=== PATIENT | female | born 1965 | race Caucasian/White ===

== ENCOUNTER → 2017-07-05 11:44 | Outpatient (CLI) | payer OTHER, SELFPAY ==
[2017-07-05 12:26] LABS: Basophils # 0.1 K/mm3 (0-0.2); Basophils % 0.8 % (0.1-2.0); Eosinophils # 0.2 K/mm3 (0.0-0.4); Eosinophils % 2.4 % (0.1-12.0); Hematocrit 47.9 % (37.0-47.0); Hemoglobin 15.8 g/dL (12.2-16.2); Lymphocytes # 3.4 K/mm3 (0.7-4.5); Lymphocytes % 34.1 K/mm3 (10-50); Mean Corpuscular HGB Conc 33.1 g/dL (31.8-35.4); Mean Corpuscular Hemoglobin 33.4 pg (27.0-31.2); Mean Platelet Volume 8.4 fl (7.4-10.4); Monocytes # 0.6 K/mm3 (0.1-1.0); Monocytes % 5.7 % (1.7-9.3); Neutrophils # 5.7 K/mm3 (1.8-7.8); Neutrophils % 56.9 % (37.0-80.0); Platelet Count 346 K/mm3 (142-424); Red Blood Count 4.74 M/mm3 (4.20-5.40); Red Cell Distribution Width 12.8 % (11.5-17.5)
[2017-07-05 14:31] LABS: Alanine Aminotransferase 37 U/L (12-78); Alkaline Phosphatase 83 U/L (46-116); Anion Gap 12.1 mEq/L (5-15); Bilirubin,Total 0.6 mg/dL (0.2-1.0); Blood Urea Nitrogen 18 mg/dL (7-18); Calcium 9.1 mg/dL (8.5-10.1); Carbon Dioxide 28 mmol/L (21.0-32.0); Chloride 102 mmol/L (98-107); Estimated Glomerular Filt Rate 58 ml/min (>60); GFR (African American) 70 ML/MIN (>60); Glucose 92 mg/dL (74-106); Sodium 138 mmol/L (136-145)
[2017-07-05 14:32] LABS: Aspartate Amino Transferase 23 U/L (15-37); Potassium 4.1 mmoL/L (3.5-5.1)
== END ==
PROVIDERS: Visit Provider Nurse Practitioner Family
DX: B18.2 Chronic viral hepatitis C (principal); Z79.899 Other long term (current) drug therapy
CPT/HCPCS: 36415; 80053; 85025; 87522

== ENCOUNTER → 2017-08-16 10:51 | Outpatient (CLI) | payer OTHER, SELFPAY ==
[2017-08-16 12:01] LABS: Basophils # 0.1 K/mm3 (0-0.2); Basophils % 0.8 % (0.1-2.0); Eosinophils # 0.2 K/mm3 (0.0-0.4); Eosinophils % 2.5 % (0.1-12.0); Hematocrit 47.8 % (37.0-47.0); Hemoglobin 15.7 g/dL (12.2-16.2); Lymphocytes # 2.8 K/mm3 (0.7-4.5); Lymphocytes % 31.1 K/mm3 (10-50); Mean Corpuscular HGB Conc 32.9 g/dL (31.8-35.4); Mean Corpuscular Hemoglobin 33.4 pg (27.0-31.2); Mean Corpuscular Volume 101.4 fl (81-99); Mean Platelet Volume 7.8 fl (7.4-10.4); Monocytes # 0.5 K/mm3 (0.1-1.0); Monocytes % 5.1 % (1.7-9.3); Neutrophils # 5.4 K/mm3 (1.8-7.8); Neutrophils % 60.5 % (37.0-80.0); Platelet Count 283 K/mm3 (142-424); Red Blood Count 4.71 M/mm3 (4.20-5.40); Red Cell Distribution Width 12.6 % (11.5-17.5)
[2017-08-16 12:13] LABS: INR 1.48 (0.9-1.1); Prothrombin Time 16.1 seconds (9.4-11.8)
[2017-08-16 13:37] LABS: Alanine Aminotransferase 19 U/L (12-78); Albumin Level 3.9 gm/dL (3.4-5.0); Alkaline Phosphatase 82 U/L (46-116); Anion Gap 14.5 mEq/L (5-15); Aspartate Amino Transferase 20 U/L (15-37); Bilirubin,Total 0.3 mg/dL (0.2-1.0); Blood Urea Nitrogen 10 mg/dL (7-18); Calcium 9.8 mg/dL (8.5-10.1); Carbon Dioxide 27 mmol/L (21.0-32.0); Chloride 104 mmol/L (98-107); Creatinine,Serum 0.84 mg/dL (0.55-1.02); Estimated Glomerular Filt Rate 71 ml/min (>60); GFR (African American) 85 ML/MIN (>60); Globulin 3.8 gm/dl (1.3-3.2); Glucose 94 mg/dL (74-106); Potassium 4.5 mmoL/L (3.5-5.1); Sodium 141 mmol/L (136-145); Total Protein,Serum 7.7 gm/dL (6.4-8.2)
== END ==
PROVIDERS: Visit Provider Nurse Practitioner Family
DX: B18.2 Chronic viral hepatitis C (principal); B19.20 Unspecified viral hepatitis C without hepatic coma; Z79.899 Other long term (current) drug therapy
CPT/HCPCS: 36415; 80053; 85025; 85610; 87522

== ENCOUNTER → 2017-09-15 10:25 | Outpatient (CLI) | payer OTHER, SELFPAY ==
[2017-09-15 11:04] LABS: Basophils # 0.1 K/mm3 (0-0.2); Eosinophils # 0.1 K/mm3 (0.0-0.4); Eosinophils % 1.9 % (0.1-12.0); Hematocrit 43.9 % (37.0-47.0); Hemoglobin 14.7 g/dL (12.2-16.2); Lymphocytes # 2.7 K/mm3 (0.7-4.5); Lymphocytes % 35.5 K/mm3 (10-50); Mean Corpuscular HGB Conc 33.6 g/dL (31.8-35.4); Mean Corpuscular Volume 98.3 fl (81-99); Mean Platelet Volume 7.7 fl (7.4-10.4); Monocytes # 0.5 K/mm3 (0.1-1.0); Monocytes % 6.1 % (1.7-9.3); Neutrophils # 4.2 K/mm3 (1.8-7.8); Neutrophils % 55.6 % (37.0-80.0); Platelet Count 282 K/mm3 (142-424); Red Blood Count 4.46 M/mm3 (4.20-5.40); Red Cell Distribution Width 12.4 % (11.5-17.5); White Blood Count 7.6 K/mm3 (4.8-10.8)
[2017-09-15 12:20] LABS: Alanine Aminotransferase 20 U/L (12-78); Albumin Level 3.7 gm/dL (3.4-5.0); Alkaline Phosphatase 69 U/L (46-116); Anion Gap 14.8 mEq/L (5-15); Aspartate Amino Transferase 22 U/L (15-37); Bilirubin,Total 0.4 mg/dL (0.2-1.0); Blood Urea Nitrogen 8 mg/dL (7-18); Carbon Dioxide 25 mmol/L (21.0-32.0); Chloride 106 mmol/L (98-107); Creatinine,Serum 0.82 mg/dL (0.55-1.02); Estimated Glomerular Filt Rate 73 ml/min (>60); GFR (African American) 88 ML/MIN (>60); Globulin 3.6 gm/dl (1.3-3.2); Glucose 91 mg/dL (74-106); Potassium 3.8 mmoL/L (3.5-5.1); Sodium 142 mmol/L (136-145); Total Protein,Serum 7.3 gm/dL (6.4-8.2)
== END ==
PROVIDERS: Visit Provider Nurse Practitioner Family
DX: B18.2 Chronic viral hepatitis C (principal); B19.20 Unspecified viral hepatitis C without hepatic coma; Z79.899 Other long term (current) drug therapy
CPT/HCPCS: 36415; 80053; 85025; 87522

== ENCOUNTER → 2017-11-15 10:35 | Outpatient (CLI) | payer OTHER, SELFPAY ==
[2017-11-15 10:50] LABS: Basophils # 0.1 K/mm3 (0-0.2); Basophils % 0.9 % (0.1-2.0); Eosinophils # 0.3 K/mm3 (0.0-0.4); Eosinophils % 3.5 % (0.1-12.0); Hematocrit 46.8 % (37.0-47.0); Lymphocytes # 2.7 K/mm3 (0.7-4.5); Lymphocytes % 30.3 K/mm3 (10-50); Mean Corpuscular HGB Conc 32.1 g/dL (31.8-35.4); Mean Corpuscular Hemoglobin 31.6 pg (27.0-31.2); Mean Corpuscular Volume 98.5 fl (81-99); Mean Platelet Volume 7.5 fl (7.4-10.4); Monocytes # 0.4 K/mm3 (0.1-1.0); Monocytes % 4.7 % (1.7-9.3); Neutrophils # 5.4 K/mm3 (1.8-7.8); Neutrophils % 60.6 % (37.0-80.0); Platelet Count 348 K/mm3 (142-424); Red Blood Count 4.75 M/mm3 (4.20-5.40); Red Cell Distribution Width 12.7 % (11.5-17.5); White Blood Count 8.8 K/mm3 (4.8-10.8)
[2017-11-15 11:47] LABS: Alanine Aminotransferase 20 U/L (12-78); Albumin Level 3.6 gm/dL (3.4-5.0); Alkaline Phosphatase 84 U/L (46-116); Anion Gap 14.9 mEq/L (5-15); Aspartate Amino Transferase 17 U/L (15-37); Bilirubin,Total 0.2 mg/dL (0.2-1.0); Blood Urea Nitrogen 9 mg/dL (7-18); Calcium 9.1 mg/dL (8.5-10.1); Carbon Dioxide 25 mmol/L (21.0-32.0); Chloride 109 mmol/L (98-107); Creatinine,Serum 0.85 mg/dL (0.55-1.02); Estimated Glomerular Filt Rate 70 ml/min (>60); GFR (African American) 84 ML/MIN (>60); Globulin 3.6 gm/dl (1.3-3.2); Glucose 112 mg/dL (74-106); Potassium 3.9 mmoL/L (3.5-5.1); Sodium 145 mmol/L (136-145); Total Protein,Serum 7.2 gm/dL (6.4-8.2)
== END ==
PROVIDERS: Visit Provider Nurse Practitioner Family
DX: B18.2 Chronic viral hepatitis C (principal); B19.20 Unspecified viral hepatitis C without hepatic coma; Z79.899 Other long term (current) drug therapy
CPT/HCPCS: 36415; 80053; 85025; 87522

== ENCOUNTER → 2018-02-23 11:10 | Outpatient (CLI) | payer OTHER, SELFPAY ==
[2018-02-23 11:17] LABS: Adenovirus F 40/41, stool Not Detected (NotDetected); Astrovirus Not Detected (NotDetected); Campylobacter Not Detected (NotDetected); Clostridium Difficile A/B, PCR Not Detected (NotDetected); Cryptosporidium Not Detected (NotDetected); Cyclospora Cayetanesis Not Detected (NotDetected); Entamoeba histolytica Not Detected (NotDetected); Enteroaggregative E coli Not Detected (NotDetected); Enteropathogenic E coli Not Detected (NotDetected); Enterotoxigenic E coli Not Detected (NotDetected); Giardia lamblia Not Detected (NotDetected); Norovirus Not Detected (NotDetected); Plesimonas Shigalloides, PCR Not Detected (NotDetected); Rotavirus A Not Detected (NotDetected); Salmonella, PCR Not Detected (NotDetected); Sapovirus Not Detected (NotDetected); Shiga-like toxin E coli Not Detected (NotDetected); Shigella Enterovasive E coli Not Detected (NotDetected); Vibrio Cholerae Not Detected (NotDetected); Vibrio, PCR Not Detected (NotDetected); Yersinia Entercolitica, PCR Not Detected (NotDetected)
[2018-03-03 15:19] LABS: Pancreatic Elastase, Fecal >500 (>200)
== END ==
PROVIDERS: Nurse Practitioner Family; PCP Nurse Practitioner Family; Visit Provider Nurse Practitioner Family
DX: K20.9 Esophagitis, unspecified (principal)
CPT/HCPCS: 82656; 87507

== ENCOUNTER → 2018-04-07 08:42 | Outpatient (CLI) | payer OTHER, SELFPAY ==
[2018-04-07 13:42] LABS: Basophils # 0.1 K/mm3 (0-0.2); Basophils % 1.1 % (0.1-2.0); Eosinophils # 0.3 K/mm3 (0.0-0.4); Eosinophils % 2.9 % (0.1-12.0); Hematocrit 42.3 % (37.0-47.0); Hemoglobin 13.6 g/dL (12.2-16.2); Lymphocytes # 2.6 K/mm3 (0.7-4.5); Lymphocytes % 27.1 % (10-50); Mean Corpuscular HGB Conc 32.1 g/dL (31.8-35.4); Mean Corpuscular Hemoglobin 32.5 pg (27.0-31.2); Mean Corpuscular Volume 101.3 fl (81-99); Mean Platelet Volume 8.2 fl (7.4-10.4); Monocytes # 0.5 K/mm3 (0.1-1.0); Monocytes % 5.5 % (1.7-9.3); Neutrophils % 63.4 % (37.0-80.0); Platelet Count 310 K/mm3 (142-424); Red Blood Count 4.18 M/mm3 (4.20-5.40); Red Cell Distribution Width 13.5 % (11.5-17.5); White Blood Count 9.5 K/mm3 (4.8-10.8)
[2018-04-07 14:17] LABS: Alanine Aminotransferase 27 U/L (12-78); Albumin Level 3.5 gm/dL (3.4-5.0); Alkaline Phosphatase 64 U/L (46-116); Anion Gap 14.8 mEq/L (5-15); Aspartate Amino Transferase 25 U/L (15-37); Bilirubin,Total 0.2 mg/dL (0.2-1.0); Blood Urea Nitrogen 10 mg/dL (7-18); C-Reactive Protein 1.2 mg/L (0.0-0.9); Calcium 8.7 mg/dL (8.5-10.1); Carbon Dioxide 26 mmol/L (21.0-32.0); Chloride 105 mmol/L (98-107); Creatinine,Serum 0.94 mg/dL (0.55-1.02); Estimated Glomerular Filt Rate 62 ml/min (>60); GFR (African American) 75 ML/MIN (>60); Globulin 3.4 gm/dl (1.3-3.2); Glucose 111 mg/dL (74-106); Potassium 3.8 mmoL/L (3.5-5.1); Sodium 142 mmol/L (136-145); Total Protein,Serum 6.9 gm/dL (6.4-8.2)
== END ==
PROVIDERS: PCP Nurse Practitioner Family; Visit Provider Dietitian, Registered
DX: K85.90 Acute pancreatitis without necrosis or infection, unspecified (principal)
CPT/HCPCS: 36415; 80053; 85025; 86140

== ENCOUNTER → 2019-06-01 11:41 | Outpatient (CLI) | payer OTHER, SELFPAY ==
--- NOTE | 2019-06-01 11:47 | XR_ITS ---
PROCEDURE: XR CHEST 2V CLINICAL HISTORY: COUGH Cough and chest pain COMPARISON: No exams were available for comparison FINDINGS: The cardiomediastinal silhouette and pulmonary vascularity are within normal limits. There is some minimal linear density noted in the left lung base medially and may be due to area of atelectasis or fibrosis. Left proximal subclavian artery stent noted No acute bony abnormalities. IMPRESSION: Minimal atelectatic or fibrotic change in the left lung base otherwise negative Dictated by: Jameel Arredondo MD 06/01/2019 16:34 Electronically signed by Jameel Arredondo MD in [place] 06/01/2019 16:34
== END ==
PROVIDERS: PCP Nurse Practitioner; Visit Provider Nurse Practitioner
DX: R05 Cough (principal)
CPT/HCPCS: 71046

== ENCOUNTER 2019-07-06 13:01 | Outpatient (CLI) | payer OTHER, SELFPAY ==
--- NOTE | 2019-07-06 13:11 | XR_ITS ---
PROCEDURE: XR CERVICAL SPINE 3V CLINICAL INDICATION: neck pain COMPARISON: No exams were available for comparison FINDINGS: There is mild retrolisthesis of C5 on C6 of 2 mm with mild degenerative disc disease at that level. Normal alignment without fracture or dislocation. Mild facet arthritic changes noted on the left at C3-C4 and C5. Carotid calcifications on the right. IMPRESSION: Mild degenerative changes as described above Dictated by: Jameel Arredondo MD 07/06/2019 15:28 Electronically signed by Jameel Arredondo MD in [place] 07/06/2019 15:28
== END 2019-07-06 14:24 | disposition home or self-care (01) ==
PROVIDERS: PCP Nurse Practitioner Family; Visit Provider Nurse Practitioner Family
DX: M54.2 Cervicalgia (principal); Z51.81 Encounter for therapeutic drug level monitoring; Z79.01 Long term (current) use of anticoagulants
CPT/HCPCS: 72040; 85610; 99211; G0463

== ENCOUNTER 2019-08-10 09:45 | Outpatient (CLI) | payer OTHER, SELFPAY ==
[2019-08-10 14:04] LABS: PHA INR Fingerstick 3.9 (0.9-1.1)
== END 2019-08-10 14:06 | disposition home or self-care (01) ==
LOC: ACC 09:47
PROVIDERS: PCP Nurse Practitioner Family; Visit Provider Nurse Practitioner Family
DX: Z51.81 Encounter for therapeutic drug level monitoring (principal); Z79.01 Long term (current) use of anticoagulants
CPT/HCPCS: 85610; 99211; G0463

== ENCOUNTER → 2019-08-16 07:50 | Outpatient (CLI) | payer OTHER, SELFPAY ==
--- NOTE | 2019-08-16 07:51 | MR_ITS ---
PROCEDURE: MR CERVICAL SPINE WO CON CLINICAL INDICATION: Abnormal CT Neck pain with bilateral arm numbness and tingling COMPARISON: XR CERVICAL SPINE 3V from 07/06/2019 TECHNIQUE: Standard multiplanar multiecho sequences are performed without contrast. 3-D MIP and myelographic images are also rendered and reviewed FINDINGS: There is normal alignment. There is minimal right cerebellar ectopia. Cranial cervical junction has an otherwise unremarkable appearance. C2-C3, C3-C4, C4-C5 have an unremarkable appearance. C5-C6: There is mild degenerative disc disease at C5-C6 with minimal bulging disc without impingement or foraminal narrowing. There is minimal retrolisthesis of C5 on C6 of 2 mm. C6-C7: Minimal bulging disc C6-C7 slightly eccentric toward the left. C7-T1: Unremarkable IMPRESSION: Mild degenerative disc disease at C5-C6 and minimal bulging disc C6-C7 slightly eccentric toward the left otherwise negative MRI of the cervical spine. No disc herniation or canal stenosis. Dictated by: Jameel Arredondo MD 08/17/2019 10:32 Electronically signed by Jameel Arredondo MD in [place] 08/17/2019 10:32
== END ==
PROVIDERS: PCP Nurse Practitioner Family; Visit Provider Nurse Practitioner Family
DX: M48.02 Spinal stenosis, cervical region (principal)
CPT/HCPCS: 72141; 76376

== ENCOUNTER 2019-08-18 09:41 | Outpatient (CLI) | payer OTHER, SELFPAY ==
[2019-08-18 12:17] LABS: PHA INR Fingerstick 1.5 (0.9-1.1)
== END 2019-08-18 12:21 | disposition home or self-care (01) ==
LOC: ACC 09:42
PROVIDERS: PCP Nurse Practitioner Family; Visit Provider Nurse Practitioner Family
DX: Z51.81 Encounter for therapeutic drug level monitoring (principal); Z79.01 Long term (current) use of anticoagulants
CPT/HCPCS: 85610; 99211; G0463

== ENCOUNTER 2019-09-06 10:27 | Outpatient (CLI) | payer OTHER, SELFPAY ==
--- NOTE | 2019-09-06 10:29 | CA_ITS ---
APPROVED REPORT Twill Cutter: Tiffanie Bolanos RVT Laterality: Bilateral Study Quality: Good Indications: Carrotid Artery Calcification SEEN ON THE RT, Dizziness and Vertigo Risk Factors Smoking Medications Coumadin Doppler Spectral Velocity Analysis ECA (R) 59.30/15.70 cm/s ECA (L) 63.00/20.40 cm/s dICA (R) 80.20/30.90 cm/s dICA (L) 88.30/40.80 cm/s Adrián (R) 76.40/32.20 cm/s Adrián (L) 63.70/30.80 cm/s pICA (L) 56.50/27.50 cm/s dCCA (R) 58.70/21.90 cm/s pCCA (R) 80.10/21.40 cm/s dCCA (L) 69.60/28.10 cm/s Vert (R) 51.50/20.10 cm/s pCCA (L) 84.30/33.50 cm/s ICA/CCA 1.37 Vert (L) 68.10/24.20 cm/s ICA/CCA 1.27 Findings Study suggests less than 20% stenosis of the right internal cartoid artery. Study suggests less than 20% stenosis of the left internal cartoid artery. Antegrade flow seen bilateral vertebral arteries. Conclusion No increased velocities to suggest hemodynamically significant stenosis in either internal carotid artery. Electronically signed by : Jameel Arredondo MD 09/06/2019 19:55:01
[2019-09-06 14:09] LABS: PHA INR Fingerstick 3.2 (0.9-1.1)
== END 2019-09-06 14:11 | disposition home or self-care (01) ==
LOC: RT 10:29 → ACC 11:19
PROVIDERS: PCP Nurse Practitioner Family; Visit Provider Nurse Practitioner Family
DX: I65.29 Occlusion and stenosis of unspecified carotid artery (principal)
CPT/HCPCS: 85610; 93880; 99211; G0463

== ENCOUNTER 2019-09-18 08:47 | Outpatient (CLI) | payer OTHER, SELFPAY ==
--- NOTE | 2019-09-18 09:08 | MM_ITS ---
PROCEDURE: MM DIG SCREENING MAMM BI W/CAD DIGITAL BREAST TOMOSYNTHESIS INCLUDED Patient Age:54Y CLINICAL INDICATION: screening no hormones. No new complaints. Family history: Maternal great aunt with breast cancer COMPARISON: Screening Mamm w/cad from 11/20/2016-outside studies from [facility] finally arrive. TECHNIQUE: Standard CC and MLO images were obtained. R2 CAD reviewed. Bilateral digital breast tomosynthesis included. The FINDINGS: Low-density breast with generalized fatty replacement. Minimal residual fibroglandular elements Right breast: Small vague 5 mm round density lateral breast. Suspect small cyst Best seen on CC and also CC tomosynthesis slice 21,. Only vaguely seen on the MLO and MLO tomosynthesis image set, (image 32, 33) not appreciated on previous 2017 exam. Although more likely benign I would suggest ultrasound right breast, following spot cc and MLO and full 90 degree views-. Could merely be focal prominent vessel possibly or small early cyst. Left breast. Unremarkable. with no areas of concern. . In fact a previous small 6 mm round density in the left breast is since no longer evident suspect reflect cyst which has since resolved IMPRESSION: Right breast:. Small new vague round 5 mm density lateral/central right breast Most likely benign feature such as small cyst, but would benefit from spot view and ultrasound right breast. Left breast: No new findings Regression of previous densities when compared to 2017 study from [facility]--likely reflecting regression of small cyst on left . BI-RAD Category: 0 Need Additional Imaging Evaluation right FOLLOW-UP: IMM Immediate Follow-up Recommended-right breast Spot views and ultrasound right breast breast for small most likely benign densities (A letter has been sent to the patient regarding results of the study.) The Dictated by: Rubin Vicente MD 10/02/2019 15:28 Electronically signed by Rubin Vicente MD in [place] 10/02/2019 15:28
== END 2019-09-18 10:21 | disposition home or self-care (01) ==
PROVIDERS: Nurse Practitioner Family; PCP Emergency Medicine; Visit Provider Emergency Medicine
DX: Z12.31 Encounter for screening mammogram for malignant neoplasm of breast (principal); Z51.81 Encounter for therapeutic drug level monitoring; Z79.01 Long term (current) use of anticoagulants
CPT/HCPCS: 77063; 77067; 99211; G0463

== ENCOUNTER 2019-09-27 10:38 | Outpatient (CLI) | payer OTHER, SELFPAY ==
[2019-09-27 11:33] LABS: PHA INR Fingerstick 1.7 (0.9-1.1)
== END 2019-09-27 11:35 | disposition home or self-care (01) ==
LOC: ACC 10:39
PROVIDERS: PCP Emergency Medicine; Visit Provider Nurse Practitioner Family
DX: Z51.81 Encounter for therapeutic drug level monitoring (principal); Z79.01 Long term (current) use of anticoagulants
CPT/HCPCS: 85610; 99211; G0463

== ENCOUNTER 2019-10-05 10:00 | Outpatient (RCR) | payer OTHER, SELFPAY | END 2019-10-12 14:00 | disposition home or self-care (01) | LOC: PT.CARL 10:00 | PROVIDERS: PCP Emergency Medicine; Visit Provider Physician Assistant Medical | DX: M54.2 Cervicalgia (principal); M25.512 Pain in left shoulder; M50.30 Other cervical disc degeneration, unspecified cervical region; M25.78 Osteophyte, vertebrae | CPT/HCPCS: 97014; 97110; 97140; 97163; G0283 ==

== ENCOUNTER 2019-10-18 12:42 | Outpatient (CLI) | payer OTHER, SELFPAY ==
--- NOTE | 2019-10-18 13:16 | MM_ITS ---
PROCEDURE: MM DIG MAMM DX UNILAT RT CAD Digital Breast Tomosynthesis Included CLINICAL INDICATION: abnormal mamm COMPARISON: No exams were available for comparison TECHNIQUE: Standard CC and MLO images and 3D Tomosynthesis was obtained. R2 CAD reviewed. FINDINGS: IMPRESSION: BI-RAD Category: FOLLOW-UP: (A letter has been sent to the patient regarding results of the study.) Dictated by: Jameel Arredondo MD 10/20/2019 10:38 Electronically signed by Jameel Arredondo MD in [place] 10/20/2019 10:38
== END 2019-10-18 14:01 | disposition home or self-care (01) ==
LOC: RAD 12:42
PROVIDERS: Nurse Practitioner Family; PCP Emergency Medicine; Visit Provider Emergency Medicine
DX: R92.8 Other abnormal and inconclusive findings on diagnostic imaging of breast (principal); Z51.81 Encounter for therapeutic drug level monitoring; Z79.01 Long term (current) use of anticoagulants
CPT/HCPCS: 76641; 77061; 77065; 85610; 99211; G0279; G0463

== ENCOUNTER 2019-11-22 14:24 | Outpatient (CLI) | payer OTHER, SELFPAY ==
[2019-11-22 14:58] LABS: PHA INR Fingerstick 2.6 (0.9-1.1)
== END 2019-11-22 15:45 | disposition home or self-care (01) ==
LOC: ACC 14:25
PROVIDERS: PCP Emergency Medicine; Visit Provider Nurse Practitioner Family
DX: Z51.81 Encounter for therapeutic drug level monitoring (principal); Z79.01 Long term (current) use of anticoagulants
CPT/HCPCS: 85610; 99211; G0463

== ENCOUNTER 2020-01-03 11:38 | Outpatient (CLI) | payer OTHER, SELFPAY ==
[2020-01-03 15:09] LABS: PHA INR Fingerstick 2.6 (0.9-1.1)
== END 2020-01-03 15:16 | disposition home or self-care (01) ==
LOC: ACC 11:40
PROVIDERS: PCP Emergency Medicine; Visit Provider Nurse Practitioner Family
DX: Z51.81 Encounter for therapeutic drug level monitoring (principal); Z79.01 Long term (current) use of anticoagulants
CPT/HCPCS: 85610; 99211; G0463

== ENCOUNTER → 2020-02-12 10:33 | Outpatient (POV) | payer OTHER, SELFPAY ==
[2020-02-12 11:10] VITALS: BP 122/74; PULSE 65; RESP 18; TEMP 36.8; O2SAT 99; BMI 24.7
--- NOTE | 2020-02-12 12:24 | HMH.PMCON ---
Assessment and Plan (1) Degenerative joint disease of cervical spine Status: Chronic Category: Medical Code(s): M47.812 - Spondylosis without myelopathy or radiculopathy, cervical region (2) Cervical radiculopathy Status: Chronic Category: Medical Code(s): M54.12 - Radiculopathy, cervical region - Assessment and plan all Dx Assessment and Plan for all problems:: Schedule the patient for C5-C6 cervical epidural steroid injection. I believe given her symptomology that this would benefit her. She is not a surgical candidate. Patient is on anticoagulation therapy. We will get prior authorization to have her come off before her injection. I will follow-up with her after this reassess her symptoms at that time she has been instructed to call the office if she has any issues prior to her next appointment. Dr. Madrigal has reviewed this note and agrees with this plan of care. This note was dictated using voice recognition software and may contain errors or omissions HPI - Data of Consult Consult date: 02/12/20 Requesting Physician: Moni Jeronimo APRN Primary Care Provider: Caesar Maxwell MD - Consult Narrative Reason for consult: Neck pain, bilateral arm pain History of present illness: Ms. Melendez is a 54 year old female presents today for consultation in regards to her neck pain. Patient has had neck pain going on several months. Patient was seen via telehealth by Dr. Azul office for surgical consultation. She was not a surgical candidate. She does have degenerative disc disease along with bulging disc. Patient's pain radiates into her arms it is worse when she is laying down. She has numbness and tingling. Patient and I discussed injective therapy I do believe this would benefit her. Patient currently on warfarin patient has a history of blood clots. Patient is seen by for her warfarin. Dr. Obrien prescribed to her. Patient states that she has been off of it for for interventions. I discussed with the patient that we would have to get permission prior to her stopping her warfarin. Patient rates her pain today 6 out of 10. It gets worse with activity. Patient has been on gabapentin 300 mg 1 p.o. 3 times daily along with [place] 5 mg 1 p.o. twice daily. Patient also currently on phentermine. Patient has had pain for over 3 months and failed conservative treatment including home stretching program, medications. CC: Moni Jeronimo APRN [facility] History I have reviewed the patient's past medical history: Yes Medical History: Reports:: Carotid Stenosis, Coronary Artery Disease, Deep Vein Thrombosis, Gastroesophageal Reflux Disease(GERD), Hyperlipidemia, Hypertension Denies:: Cancer, Diabetes Mellitus Type 1, Diabetes Mellitus Type 2, MRSA *Have you ever received a pneumonia vaccine?: Yes *Have you received a flu vaccine this season?: Yes Other Medical History: Reports: Anemia, Arthritis Other Surgeries: Yes: Colonoscopy, , Tubal Ligation, Other Amputation: No Fractures: Yes - *Social History Smoking Status: Current every day smoker Tobacco Type: cigarettes # Packs/Day (cigarettes): 1 Alcohol Intake: former Alcohol Intake Frequency:: a few times a week Substance Use Type: former substance user *Occupational Status:: other Housing: house Household Members: other *Travel in the last 8 weeks: None Family Hx:: Unable to obtain Review of Systems - Review of Systems ROS General: no recent weight change, no fever, no sleep disturbances Respiratory: no cough, no shortness of air, no recurring pulmonary infections Cardiovascular/Peripheral Vascular: No chest pain, No palpitations, no edema, no shortness of breath. Gastrointestinal: no new onset incontinence, normal bowel movements reported Genitourinary: no new onset incontinence Musculoskeletal: Neck pain, bilateral arm pain Psychiatric: normal mood/ affect Neurological: [denies new onset weakness in extremities], [denies new onset dorie
== END ==
PROVIDERS: PCP Emergency Medicine; Visit Provider Clinical Nurse Specialist Family Health
DX: M47.892 Other spondylosis, cervical region (principal); M54.12 Radiculopathy, cervical region
CPT/HCPCS: 99202

== ENCOUNTER 2020-02-16 12:32 | Outpatient (CLI) | payer OTHER, SELFPAY ==
[2020-02-16 14:11] LABS: PHA INR Fingerstick 2.4 (0.9-1.1)
== END 2020-02-16 15:08 | disposition home or self-care (01) ==
LOC: ACC 12:33
PROVIDERS: Nurse Practitioner Family; PCP Emergency Medicine; Visit Provider Emergency Medicine
DX: Z51.81 Encounter for therapeutic drug level monitoring (principal); Z79.01 Long term (current) use of anticoagulants
CPT/HCPCS: 85610; 99211; G0463

== ENCOUNTER 2020-02-23 13:29 | Day surgery (SDC) | payer OTHER, SELFPAY ==
[2020-02-23 14:55] VITALS: BP 147/93; PULSE 110; RESP 18; TEMP 36.4; O2SAT 97; BMI 24.7
--- NOTE | 2020-02-23 15:20 | HMH.PMPROC ---
- Procedure Date: 02/23/20 Time: 15:20 Anesthesiologist:: aRndy Madrigal MD Complications:: None Pre-procedure Diagnosis:: Degenerative disc disease of the cervical spine with cervical radiculopathy symptoms Post-procedure Diagnosis:: Same Indications for Procedure:: This patient is a pleasant 54-year-old white female who we are treating for neck pain with cervical radicular symptoms. She has increasing pain in her neck radiating down her left arm. She is not a surgical candidate. We will do a cervical epidural steroid injection today to see if this helps with her pain symptoms. Procedure Details:: Cervical epidural steroid injection under fluoroscopy Informed consent was obtained and the risks and benefits of the procedure was explained to the patient. The patient was taken to the procedure room placed prone on the procedure table. The neck was prepped using ChloraPrep. The skin and subcutaneous tissues were anesthetized using lidocaine. I placed a 18-gauge epidural needle into the C5-C6 interspace and advanced using [id number] to air and fluoroscopic guidance. After confirmation of needle placement in the epidural space with dye, I injected 3 mL's lidocaine 1.5% and Depo-Medrol 80 mg. The patient tolerated the procedure well with no complications. Plan and Disposition:: We will follow-up with her in 2 weeks. Will reevaluate symptoms at that time.
[2020-02-23 15:21] VITALS: BP 138/87; PULSE 74; RESP 18; O2SAT 98
[2020-02-23 15:22] VITALS: BP 132/78; PULSE 79; RESP 18; O2SAT 98
[2020-02-23 15:38] VITALS: BP 161/88; PULSE 99; RESP 20; O2SAT 97
== END 2020-02-23 15:39 | disposition home or self-care (01) ==
LOC: SC.PAINP 13:30
PROVIDERS: PCP Emergency Medicine; Visit Provider Anesthesiology
DX: M50.10 Cervical disc disorder with radiculopathy, unspecified cervical region (principal); I11.0 Hypertensive heart disease with heart failure; K21.9 Gastro-esophageal reflux disease without esophagitis; B19.20 Unspecified viral hepatitis C without hepatic coma; Z72.0 Tobacco use; I50.9 Heart failure, unspecified; J44.9 Chronic obstructive pulmonary disease, unspecified; K85.90 Acute pancreatitis without necrosis or infection, unspecified; F41.9 Anxiety disorder, unspecified; F32.9 Major depressive disorder, single episode, unspecified; G43.909 Migraine, unspecified, not intractable, without status migrainosus; Z79.899 Other long term (current) drug therapy
CPT/HCPCS: 62321; J1040; Q9966

== ENCOUNTER → 2020-02-27 15:12 | Outpatient (CLI) | payer OTHER, SELFPAY ==
--- NOTE | 2020-02-27 15:12 | CT_ITS ---
PROCEDURE: CT LUNG SCREENING CLINICAL INDICATION: screening, smoker Current smoker 40 pack year smoking history copd No prior COMPARISON: No exams were available for comparison TECHNIQUE: The exam was performed on a GE Light Speed [address] scanner using 2.90 mGy CTDI. A low dose helical CT CHEST was performed on a multi-detector scanner. All CT scans at the facility use one or more dose reduction, viz: automated exposure control, ma/kV adjustment per patient size (including targeted exams where dose is matched to indication, i.e. head), or iterative reconstruction technique. The LDCT was performed in a facility that meets the criteria for the screening program. Data regarding this exam was submitted to ACR which is an approved registry. The order for this exam indicates that it came as a result of a lung cancer screening counseling shard decision-making visit that included all the elements required of such a visit including smoking cessation. The radiologist interpreting this exam meets the [facility] criteria for the LDCT lung cancer screening program. The exam is reported using the Lung-RADS classification scale and reported to the ACR registry. NOTE: This study was performed for the specific purposes of lung cancer screening and is not an alternative to diagnostic chest CT. RADIATION DOSE: CTDI vol(CT dose Index-volume) = 2.90mG DLP (Dose Length Product) = 94.55 mGcm FINDINGS: COPD changes. Mild prominence of the interstitium There is a peripheral area of increased density in the left lung base posteriorly and medially which abuts the hemidiaphragm. This measures 1.7 by 1 cm. There are no previous exams available for comparison to determine if this is new or old. OTHER FINDINGS: Coronary artery calcifications. Left subclavian stent is present. IMPRESSION: Lung-RADS Category 4A Suspicious Follow-up: Diagnostic chest CT without and with contrast Dictated by: Jameel Arredondo MD 03/03/2020 09:19 Jameel Arredondo MD in [place] 03/03/2020 09:19
== END ==
PROVIDERS: PCP Emergency Medicine; Visit Provider Emergency Medicine
DX: Z87.891 Personal history of nicotine dependence (principal); Z12.2 Encounter for screening for malignant neoplasm of respiratory organs

== ENCOUNTER → 2020-03-01 08:49 | Outpatient (POV) | payer OTHER, SELFPAY ==
[2020-03-01 08:56] VITALS: BP 144/92; PULSE 93; RESP 18; TEMP 36.4; O2SAT 98; BMI 24.7
--- NOTE | 2020-03-01 10:45 | P.CONS_ITS ---
[facility] Pain Management SOAP Note Subjective:: Patient is a pleasant 54-year-old white female who we have been treating for neck pain with cervical radicular symptoms. She did have a cervical epidural steroid injection which did help some of her radicular symptoms. She now has increased stiffness and muscle spasms in her neck and shoulders. Encompassing the cervical paraspinous muscles and upper trapezius muscles. She is on Zanaflex 4 mg 2 times a day. This does help some however is not long-lasting. She has seen Dr. Azul who did not recommend any surgery. We will switch her muscle relaxant to Flexeril 10 mg 1 tablet 3 times a day. We will also seek approval for trigger point injections to bilateral cervical paraspinous muscles and upper trapezius muscles. She is on blood thinner she does not need to come off her blood thinners for these trigger point injections. Objective:: Alert and oriented x3 no acute distress. There is decreased range of motion patient does have difficulty with flexion extension and turning her head due to muscle spasms and tightness of the muscles. Trigger points are identified throughout the cervical paraspinous muscles and upper trapezius muscles. Motor strength of the upper extremities is 5/5. There are no gross sensory deficit. Assessment:: Myofascial pain throughout the cervical paraspinous muscles and upper trapezius muscles with continued neck pain. Degenerative disc disease of the cervical spine with cervical radiculopathy symptoms. Plan:: We will switch her muscle relaxant to Flexeril 10 mg 1 tablet 3 times a day. We will also seek approval for trigger point injections to bilateral cervical p araspinous muscles and upper trapezius muscles. She is on blood thinner she does not need to come off her blood thinners for these trigger point injections. [facility] History Medical History: Reports:: Carotid Stenosis, Congestive Heart Failure, Coronary Artery Disease, Deep Vein Thrombosis, Gastroesophageal Reflux Disease(GERD), Hyperlipidemia, Hypertension Denies:: Cancer, Diabetes Mellitus Type 1, Diabetes Mellitus Type 2, MRSA, Seizures *Have you ever received a pneumonia vaccine?: Yes *Have you received a flu vaccine this season?: Yes Other Medical History: Reports: Anemia, Arthritis. Denies: Blood Transfusion Reaction Other Surgeries: Yes: Colonoscopy, , Tubal Ligation, Other Amputation: No Fractures: Yes - *Social History Smoking Status: Current every day smoker Tobacco Type: cigarettes # Packs/Day (cigarettes): 1 Alcohol Intake: never Alcohol Intake Frequency:: holidays/special occasions only Substance Use Type: former substance user *Occupational Status:: employed Housing: house Household Members: other *Travel in the last 8 weeks: None Family Hx:: Unable to obtain
== END ==
PROVIDERS: PCP Emergency Medicine; Visit Provider Anesthesiology
DX: M79.18 Myalgia, other site (principal); M50.10 Cervical disc disorder with radiculopathy, unspecified cervical region
CPT/HCPCS: 99212

== ENCOUNTER 2020-03-07 10:54 | Outpatient (CLI) | payer OTHER, SELFPAY ==
[2020-03-07 12:04] LABS: PHA INR Fingerstick 1.9 (0.9-1.1)
== END 2020-03-07 12:06 | disposition home or self-care (01) ==
LOC: ACC 10:56
PROVIDERS: PCP Emergency Medicine; Visit Provider Nurse Practitioner Family
DX: Z51.81 Encounter for therapeutic drug level monitoring (principal); Z79.01 Long term (current) use of anticoagulants
CPT/HCPCS: 85610; 99211; G0463

== ENCOUNTER → 2020-03-11 14:22 | Outpatient (CLI) | payer OTHER, SELFPAY ==
--- NOTE | 2020-03-11 15:24 | CT_ITS ---
PROCEDURE: CT CHEST W CON CLINCAL INDICATION: pulmonary nodule Follow-up pulmonary nodule COMPARISON: CT CT LUNG SCREENING from 02/27/2020 TECHNIQUE: IV Contrast: 75ml Isovue 370 Axial images obtained with sagittal and coronal reformats. All CT scans at the facility use one or more dose reduction, viz: automated exposure control, ma/kV adjustment per patient size (including targeted exams where dose is matched to indication, i.e. head), or iterative reconstruction technique. FINDINGS: HEART AND MEDIASTINAL STRUCTURES: Scattered small mediastinal lymph nodes are present. These measure up to 1.3 by 1 cm. Subcarinal lymph nodes are present measuring up to 1.6 x 0.9 cm. Coronary artery calcifications are present. Mild nonspecific thickening of the GE junction noted. LUNGS AND PLEURAL SPACES: There remains a peripheral parenchymal opacity in the left lower lobe abutting the hemidiaphragm. This is somewhat less distinct than when compared to the previous study and may represent an area of pneumonia/consolidation. There has been a development of a small left basilar pleural effusion with some atelectatic change in the left lower lobe posterior laterally. The effusion does not layer posteriorly as expected consistent with loculated sub pulmonic effusion. There are a couple locules of air in this region which is contiguous with the stomach and may represent gastric diverticulum with associated eventration of the diaphragm.. A sub pulmonic/subdiaphragmatic abscess is felt to be less likely. CT of the abdomen with IV and oral contrast may provide further evaluation. There is mild thickening of the GE junction which is nonspecific. BONY STRUCTURES: No acute bony abnormalities apparent. UPPER ABDOMEN: There is a small left periaortic lymph node at 1.7 x 1 cm. Small right periaortic lymph node also present at 1.5 x 0.8 cm. ADDITIONAL FINDINGS: No other significant abnormalities. IMPRESSION: 1. Persistent but less distinct parenchymal opacity in the left lung base abutting the hemidiaphragm. This may represent an area of pneumonia as opposed to pulmonary nodule. There are increasing atelectatic changes in the left lower lobe 2. Interval development of small left pleural effusion with a layering component posteriorly and with a loculated subpulmonic component. There is some mild peripheral enhancement of the effusion. Developing empyema is not excluded. 3. There are 3 locules of air in the sub pulmonic area on the left which is felt to be due to a gastric diverticulum with diaphragmatic eventration. Cannot exclude the possibility of a subpulmonic or subdiaphragmatic abscess. Recommend abdomen CT with IV and oral contrast for further evaluation. 4. Mildly prominent mediastinal and retroperitoneal lymph nodes. Dictated by: Jameel Arredondo MD 03/12/2020 06:29 Jameel Arredondo MD in [place] 03/12/2020 06:29
[2020-03-11 15:45] LABS: Blood Urea Nitrogen 15 mg/dl (7-17); Estimated Glomerular Filt Rate 87 ml/min (>60); GFR (African American) 105 ML/MIN (>60)
== END ==
PROVIDERS: PCP Emergency Medicine; Visit Provider Internal Medicine Medical Oncology
DX: R91.1 Solitary pulmonary nodule (principal)
CPT/HCPCS: 36415; 71260; 82565; 84520; Q9967

== ENCOUNTER → 2020-03-20 06:51 | Outpatient (CLI) | payer OTHER, SELFPAY ==
--- NOTE | 2020-03-20 06:51 | NM_ITS ---
APPROVED REPORT Exam: Nuclear Stress Test Indication: SOB, HTN, Tobacco use, Family history Patient Location: Outpatient Stress Tech: Mary Gomes NM Tech:Stella Bañuelos, ARRT, RT (R)(N) Ht: 5 ft 7 in Wt: 163 lbs Bra Size: 36C HR: 86 bpm BP: 147/92 mmHg BSA: 1.85 m2 BMI: 25.5 History: SOB, HTN, Tobacco use, Family history Procedure: Patient exercised on Rajeev protocol 5:00 minutes and sec, resting heart rate 86 bpm, resting blood pressure 147/92 mmHg, with exercise maximum heart rate achived was 144 bpm which is 88 % of the maximum predicted heart rate and blood pressure was 178/84 mmHg. Test was stopped due to SOA and leg fatigue. Patient denied any complaint of chest pain. Patient has Adequate exercise capacity, achieved 7.0 METs of workload on treadmill, the blood pressure response to exercise was Adequate. Electrocardiogram Resting electrocardiogram showed sinus rhythm, with exercise there is less than 1.[address] segment depression noted from the baseline EKG. The EKG portion of the exercise Myoview is negative for ischemia. Cardiac Stress and Resting SPECT Images: Cardiac Stress and Resting SPECT images were obtained using technetium 99m Myoview 32.2 mCi stress and 10.70 mCi at rest. Gated SPECT for analysis of segmental wall motion and calculation of the ejection fraction also done. Cardiac stress and resting SPECT images show uniform myocardial activity without segmental perfusion abnormality, computer derived ejection fraction is 63% with no regional wall motion abnormality, right ventricle is normal size and contractility. Conclusion: 1. The EKG portion of the exercise Myoview is negative for ischemia, patient has adequate exercise capacity achieved 7 mets of workload on treadmill the blood pressure response to exercise was adequate, there was no exercise-induced chest discomfort. 2. No scintigraphic evidence of reversible ischemia seen at this level of exercise, computer derived ejection fraction is 63% with no regional wall motion abnormality, right ventricle is normal size and contractility. 3. Normal exercise Myoview study. Electronically signed by : Tyler Campbell, 03/21/2020 10:20:50
--- NOTE | 2020-03-20 06:51 | CA_ITS ---
APPROVED REPORT Exam: Exercise Treadmill Technologist: Mary Gomes Ht: 5 ft 7 in Wt: 166 lbs BSA: 1.87 m2 HR: 86 bpm BP: 147/92 mmHg Indications: Shortness of Breath Medical History Medications: Amlodipine,,,,, Omeprazole,,,,, Aspirin,,,,, Warfarin,,,,, Metoprolol,,,,, Gabapentin,,,,, Tizanidine,,,,, FluTICASONE,,,,, Cyclobenzaprine,,,,, RoSUVASTATIN,,,,, Phentermine,,,,, Hydrocodone-Acetaminophen,,,,, Stress Test Details Test: Manual Treadmill HR Resting HR: 102 bpm Max Heart Rate (APMHR): 164 bpm Max HR Achieved: 144 bpm Target HR (85% APMHR): 139 bpm % of APMHR: 87 Recovery HR: 103 bpm BP Resting BP: 147.0/92.0 mmHg Max BP: 178.0/84.0 mmHg Recovery BP: 149.0/93.0 mmHg ECG Clinical Exercise duration: 05:00 min Highest Stage Achieved: Exercise capacity: 7.0 METs Stress ECG Conclusion Resting EKG: Normal sinus rhythm Patient exercised 5:00 on Rajeev Protocol with speed slowed down to 2 mph the final 30 seconds of exercise. Symptoms: No chest pain. Arrhythmias/Ectopy: None ST-T Changes: Normal ST response to exercise. Conclusion: Normal GXT. Myoview images reported separately. Test Summary REST . . . . . . . Sitting REST . . . . . . . Standing REST 03:54 0.0 0.0 102 . 147/ 92 . . Stage 1 01:00 10.0 1.7 114 . . . . Stage 1 . . . . . . . Shortness of Breath Stage 1 02:00 10.0 1.7 126 . . . . Stage 1 03:00 10.0 1.7 133 . 160/ 80 . . Stage 2 . . . . . . . Myoview Injected Stage 2 01:00 12.0 2.5 140 . . . . Stage 2 . . . . . . . Protocol changed to Manual Treadmill Stage 2 02:00 12.0 2.0 142 . . . Stop exercise at 05:00 RECOVERY 01:00 0.0 0.0 130 . . . . RECOVERY 02:00 0.0 0.0 115 . 178/ 84 . . RECOVERY 03:00 0.0 0.0 111 . 162/ 94 . . RECOVERY 04:00 0.0 0.0 108 . 162/ 94 . . RECOVERY 05:00 0.0 0.0 102 . 149/ 93 . . RECOVERY 05:19 0.0 0.0 105 . 149/ 93 . . Electronically signed by : Tyler Campbell, 03/21/2020 10:17:18
--- NOTE | 2020-03-20 06:51 | CA_ITS ---
APPROVED REPORT EXAM: Comprehensive 2D, Doppler, and color-flow Echocardiogram Water Superintendent: Azra Garay CRT Ht: 5 ft 7 in Wt: 166lbs BSA: 1.87 BP: 145/70 mmHg Indications: SOA,CAD,SMOKER,EDEMA,EDEMA,HLD,HTN,GERD,HEP C,ALCOHOL USE 2D Dimensions LVOT 1.81 cm (M/F) 1.5-2.5 M-Mode Dimensions RVDd 3.32 cm (0.9-2.6) LA Diam 3.30 cm (1.9-4.0) LVDd 4.28 cm (3.5-5.7) Ao Diam 3.09 cm (2.0-3.7) LVDs 3.17 cm (3.5-5.7) IVSd 0.61 cm (0.6-1.1) PWd 1.11 cm (0.6-1.1) EF (Teich) 51.30% FS 25.90% EDV (Teich) 82.20 mL ESV (Teich) 40.00 mL LV Diastology E Decel Time 150.00 (160-240 msec) E/A Ratio 0.6 MED E' 5.70 (< 7 cm/sec) E'/MED E' Ratio 9.54 (>14) LAT E' 9.20 (<10 cm/sec) E/LAT E' Ratio 5.91 (>14) Mitral Valve MV E Max Martell. 54.00 (40-130 cm/s) MV A Velocity 88.00 (40-130 cm/s) E/A Ratio 0.62 MV Decel. Time 150.00 (160-240 ms) MV PHT 44.00 ms Pulmonary Valve PV Peak Velocity 85.00 (50-150 cm/s) Left Ventricle Left atrium is mildly enlarged, left ventricle is normal size, mild concentric left ventricular hypertrophy, visually estimated ejection fraction 55% with no regional wall motion abnormality, grade 1 diastolic dysfunction seen without tissue Doppler evidence of raise left atrial pressure. Right Ventricle Right atrium and right ventricle mildly enlarged with normal contractility. Aortic Valve Aortic valve is minimally thickened and fibrosed, there is no aortic stenosis or aortic insufficiency. Mitral Valve Mitral valve is grossly normal, there is mild mitral regurgitation. Tricuspid Valve Tricuspid valve grossly normal, there is mild tricuspid regurgitation, tricuspid regurgitation jet velocity is inadequate for calculation of the right ventricular systolic pressure. Pulmonic Valve Pulmonic valve is poorly visualized. Great Vessels Aortic root is normal size. Pericardium No significant pericardial effusion noted. Conclusion 1. Mild biatrial enlargement, normal left ventricular size, mild concentric left ventricular hypertrophy, visually estimated ejection fraction 55% with no regional wall motion abnormality, grade 1 diastolic dysfunction seen without tissue Doppler evidence of raise left atrial pressure. 2. Mildly enlarged right ventricle with normal contractility. 3. Mild mitral and tricuspid regurgitation. 4. No significant pericardial effusion noted. Electronically signed by : Tyler Campbell, 03/21/2020 11:21:51
[2020-03-20 07:35] LABS: Basophils # 0.1 K/mm3 (0-0.2); Basophils % 1.2 % (0.1-2.0); Eosinophils # 0.3 K/mm3 (0.0-0.4); Eosinophils % 3.3 % (0.1-12.0); Hematocrit 42.9 % (37.0-47.0); Hemoglobin 13.5 g/dL (12.2-16.2); Lymphocytes # 3.1 K/mm3 (0.7-4.5); Lymphocytes % 34.1 % (10-50); Mean Corpuscular HGB Conc 31.5 g/dL (31.8-35.4); Mean Corpuscular Hemoglobin 30.2 pg (27.0-31.2); Mean Corpuscular Volume 95.8 fl (81-99); Mean Platelet Volume 7.4 fl (7.4-10.4); Monocytes # 0.5 K/mm3 (0.1-1.0); Monocytes % 5.8 % (1.7-9.3); Neutrophils # 5.1 K/mm3 (1.8-7.8); Neutrophils % 55.7 % (37.0-80.0); Platelet Count 551 K/mm3 (142-424); Red Blood Count 4.48 M/mm3 (4.20-5.40); White Blood Count 9.1 K/mm3 (4.8-10.8)
[2020-03-20 08:13] LABS: Chloride 104 mmol/L (98-107); Potassium 3.5 mmoL/L (3.5-5.1); Sodium 143 mmol/L (136-145)
[2020-03-20 08:15] LABS: Blood Urea Nitrogen 14 mg/dl (7-17)
[2020-03-20 08:16] LABS: Anion Gap 14.5 mEq/L (5-15); Calcium 9.8 mg/dl (8.4-10.2); Carbon Dioxide 28 mmol/L (22.0-30.0); Estimated Glomerular Filt Rate 103 ml/min (>60); GFR (African American) 125 ML/MIN (>60); Glucose 90 mg/dl (74-100)
--- NOTE | 2020-03-20 08:39 | HMH.ITSHM ---
Current Home Medications as stated by this patient Meeta Melendez or self pay representative. []AMLODIPINE TIZANADINE WARFARIN ASA OMEPRAZOLE GABAPENTIN HYDROCODONE METOPROLOL ATORVASTATIN
[2020-03-20 09:44] LABS: INR 1.52 (0.9-1.1); Prothrombin Time 16.2 seconds (9.4-11.8)
[2020-03-20 09:46] LABS: Coronavirus 19 IgG Antibody Negative (Negative); Coronavirus 19 IgM Antibody Negative (Negative)
== END ==
PROVIDERS: Internal Medicine Pulmonary Disease; PCP Emergency Medicine; Visit Provider Internal Medicine Cardiovascular Disease
DX: R06.00 Dyspnea, unspecified (principal); E78.5 Hyperlipidemia, unspecified; I10 Essential (primary) hypertension; I65.23 Occlusion and stenosis of bilateral carotid arteries; J44.9 Chronic obstructive pulmonary disease, unspecified; K21.9 Gastro-esophageal reflux disease without esophagitis; R60.9 Edema, unspecified; F17.200 Nicotine dependence, unspecified, uncomplicated; I25.10 Atherosclerotic heart disease of native coronary artery without angina pectoris; Z82.49 Family history of ischemic heart disease and other diseases of the circulatory system; Z86.19 Personal history of other infectious and parasitic diseases; Z86.718 Personal history of other venous thrombosis and embolism; Z95.828 Presence of other vascular implants and grafts; Z98.890 Other specified postprocedural states; F17.210 Nicotine dependence, cigarettes, uncomplicated; R59.0 Localized enlarged lymph nodes; Z01.812 Encounter for preprocedural laboratory examination
CPT/HCPCS: 36415; 78452; 80048; 85025; 85610; 86328; 93017; 93306; A9502

== ENCOUNTER 2020-03-22 10:02 | Day surgery (SDC) | payer OTHER, SELFPAY ==
[2020-03-19 14:05] VITALS: BMI 25.5
[2020-03-22] VITALS (10 sets, daily range): BP systolic 127–154; BP diastolic 51–93; PULSE 72–107; RESP 18–20; TEMP 36.1–36.7; O2SAT 94–99
--- NOTE | 2020-03-22 14:06 | HMH.ANESCL ---
[facility] Anesthesia Checklist - Patient Identification Patient Identification: Arm Band, Verbal (Name & ) - Structural Data Admitted From: Home Planned Operative Procedure/s: bronch Consent for Planned Operative Procedure(s) Verified: Yes Verified Documents: History and Physical - NPO Status Verified Time NPO: 00:00 - Additional verifications Patient : No Anesthesia Reactions: No Hx Blood Transfusions: No Blood Transfusion Reaction: No Cephalosporin Allergy: No Previous Colonoscopy: Yes - Cardiovascular Assessment Heart Sounds: S1 & S2 Pulse Strength: Baseline Pulse Rhythm: Regular Peripheral Edema: No - Airway Assessment C-Spine Mobility Assessed: Yes TMJ Mobility Assessed: Yes Dentition: Good Dentition - Neurological Assessment Level of Consciousness: Awake, Alert, Appropriate Hx Seizures: No Numbness or tingling in extremities: No - Anesthesia Plan Anesthesia Risk discussed: Yes Anesthesia Plan: Verified ASA Class: III Anesthesia Type: General [facility] History I have reviewed the patient's past medical history: Yes Medical History: Reports:: Carotid Stenosis, Congestive Heart Failure, Coronary Artery Disease, Deep Vein Thrombosis, Gastroesophageal Reflux Disease(GERD), Hyperlipidemia, Hypertension Denies:: Cancer, Diabetes Mellitus Type 1, Diabetes Mellitus Type 2, MRSA, Seizures *Have you ever received a pneumonia vaccine?: Yes *Have you received a flu vaccine this season?: Yes Other Medical History: Reports: Anemia, Arthritis. Denies: Blood Transfusion Reaction Anesthesia experience/problems:: none Other Surgeries: Yes: Angiogram, Colonoscopy, , Tubal Ligation, Other Amputation: No Fractures: Yes - *Social History Last grade of school completed: High school graduate Smoking Status: Current every day smoker Tobacco Type: cigarettes # Packs/Day (cigarettes): 1 Alcohol Intake: current Alcohol Intake Frequency:: holidays/special occasions only Substance Use Type: marijuana Last Used Substance: days (ago) *Occupational Status:: disabled Housing: house Household Members: other *Travel in the last 8 weeks: None Family Hx:: Unable to obtain, Cancer, Heart Attack, Tuberculosis, Stroke, Hypertension, Anemia
--- NOTE | 2020-03-22 14:06 | HMH.ANESI ---
[facility] Anesthesia Record Part I Intake, IV Amount: 800 Estimated blood loss (mL): 5 Urine output (mL): 0 Blood Products used (#): none Blood Pressure: 146/55 SaO2: 96 Pulse Rate: 107 Respiratory Rate: 20 Temperature: 97.5 F Patient is:: Awake, Stable Stable to PACU at:: 14:55
--- NOTE | 2020-03-22 14:42 | HMH.BRONCH ---
- Procedure: Date: 03/22/20 Patient Date of :: 1965 Procedure Performed:: Bronchoscpy with EBUS-FNA Indications:: Mediastinal and Hilar adenopathy Performing Provider:: Dr. Dann Bobo Referring Provider:: Dr. Maxwell Sedation:: General anesthesia Procedure:: Bronchoscopy with EBUS FNA Findings:: A clean EBUS bronchoscopy without a balloon was introduced through 8 and half size ET tube and lymph node surveillance was performed, patient found to have a large station 7, 10 L and 4R lymphadenopathies. 5 passes were performed in each of the lymph node stations and sent for cytopathology analysis. Station 7 and 10 L were also sent for cultures and flow cytometry. Bedside pathology evaluation inconclusive, however seen atypical cells on the station 7 FNA analysis. Patient tolerated the procedure well with minimal blood loss. We will follow the patient in the clinic as previously scheduled with the results. Specimens:: FNA of station 7, 10 L and 4R lymph nodes Recommendations:: Follow in the clinic as previously scheduled. Complications:: None Estimated blood obtained (mL): 5
--- NOTE | 2020-03-22 14:46 | HMH.ANESII ---
[facility] [place] Anesthesia Record Part II Discharge Time: 14:25 Destination: Surgical Day Care (OP Surgery) PACU nurse assessment reviewed?: Yes Patient Condition:: Good Anesthesia Complications:: None Swallowing reflex intact?: Yes Cyanosis?: No Blood Pressure: 127/93 Pulse Rate: 80 Temperature: 97.5 F Mental Status: Alert & Oriented Pain level:: 2 Nausea and/or vomitting:: None Intake, IV Amount: 35
--- NOTE | 2020-03-22 14:48 | SUR.PHASEII ---
MEDICATED WITH TYLENOL 650MG PER MD ORDER FOR C/O OF WHEELER.
== END 2020-03-22 15:00 | disposition home or self-care (01) ==
LOC: OR 10:02
PROVIDERS: PCP Emergency Medicine; Visit Provider Internal Medicine Pulmonary Disease
PROC: (CPT 31653; principal; 2020-03-22 12:00)
DX: R59.0 Localized enlarged lymph nodes (principal); Z72.0 Tobacco use; I11.0 Hypertensive heart disease with heart failure; I50.9 Heart failure, unspecified; Z79.01 Long term (current) use of anticoagulants; Z95.828 Presence of other vascular implants and grafts; R04.2 Hemoptysis; J44.9 Chronic obstructive pulmonary disease, unspecified; I25.10 Atherosclerotic heart disease of native coronary artery without angina pectoris; R06.00 Dyspnea, unspecified
CPT/HCPCS: 31653; 87070; 87077; 87186; 87205; J2405; J2710

== ENCOUNTER 2020-04-11 10:07 | Outpatient (CLI) | payer OTHER, SELFPAY ==
[2020-04-11 14:29] LABS: PHA INR Fingerstick 2.4 (0.9-1.1)
== END 2020-04-11 14:30 | disposition home or self-care (01) ==
LOC: ACC 10:09
PROVIDERS: PCP Emergency Medicine; Visit Provider Nurse Practitioner Family
DX: Z51.81 Encounter for therapeutic drug level monitoring (principal); Z79.01 Long term (current) use of anticoagulants
CPT/HCPCS: 85610; 99211; G0463

== ENCOUNTER 2020-05-07 09:31 | Observation (INO) | payer OTHER, SELFPAY ==
[2020-05-07] VITALS (9 sets, daily range): BP systolic 136–170; BP diastolic 81–100; PULSE 83–105; RESP 19–24; TEMP 36.5–37.3; O2SAT 94–99; BMI 24.5; BMI 26.3
--- NOTE | 2020-05-07 09:27 | ECG_ITS ---
APPROVED REPORT Exam: Resting ECG HR:91 bpm ECG Measurements Heart Rate 91 AXES NE 168 P 57 QRSd 76 QRS 49 QT 366 T 61 QTc 450 Conclusion Normal sinus rhythm Normal ECG Electronically signed by : Nik Newell, 05/07/2020 19:56:12
--- NOTE | 2020-05-07 09:36 | XR_ITS ---
PROCEDURE: XR CHEST PORTABLE CLINICAL HISTORY: pain chest Chest pain and shortness of air COMPARISON: CR XR CHEST 2V from 06/01/[address] CHEST W CON from 03/11/2020 FINDINGS: The cardiomediastinal silhouette and pulmonary vascularity are within normal limits. There is some patchy density in the left lung base suggesting atelectasis or infiltrate. The remaining lungs are clear.. No acute bony abnormalities. IMPRESSION: Mild left basilar atelectasis or infiltrate. Dictated by: Jameel Arredondo MD 05/07/2020 12:32 Jameel Arredondo MD in [place] 05/07/2020 12:32
--- NOTE | 2020-05-07 09:36 | CT_ITS ---
PROCEDURE: CT ANGIO CHEST CLINCIAL INDICATION: pain with inspiration, hx of DVT COMPARISON: CT CT CHEST W CON from 03/11/2020 TECHNIQUE: IV Contrast: 70ML Isovue 370 Axial images obtained with sagittal and coronal reformats. All CT scans at the facility use one or more dose reduction, viz: automated exposure control, ma/kV adjustment per patient size (including targeted exams where dose is matched to indication, i.e. head), or iterative reconstruction technique. FINDINGS: No evidence of aortic aneurysm or dissection or pulmonary embolus. No mediastinal or hilar mass or adenopathy. Coronary artery calcifications and/or stents noted. There are few small mediastinal lymph nodes. Dependent changes are present in the posterior ramsey thoraces. Mild consolidation present in the left lower lobe posteriorly and medially. Trace left-sided effusion noted. There is persistent increased density in the left lung base medially along the hemidiaphragm. This has been described previously and is somewhat more prominent with vascular structures extending through this area. This is along the cardia of the stomach between the cardia of the stomach and the spleen. Neoplasm or subphrenic/sub pulmonic abscess is considered. As mentioned previously, would recommend CT of the abdomen with both IV and oral contrast for further evaluation. Upper endoscopy may also provide further evaluation. There are degenerative changes of the thoracic spine. IMPRESSION: 1. Persistent increased soft tissue along the cardia of the stomach and in the left subdiaphragmatic region medially with thickening of the soft tissues at this area. These findings could be neoplastic or inflammatory/infectious. Upper endoscopy may provide further evaluation. CT of the abdomen with both IV and oral contrast may also provide further evaluation. Oral contrast should be given at the time immediately before imaging to assure stomach opacification. 2. There is some consolidation in the left lower lobe medially as before with trace left-sided effusion. 3. No evidence of pulmonary embolus or aortic aneurysm or dissection. Dictated by: Jameel Arredondo MD 05/07/2020 12:28 Jameel Arredondo MD in [place] 05/07/2020 12:28
--- NOTE | 2020-05-07 09:37 | HMH.EDCP ---
ED Disposition Clinical Impression: Pleural effusion, Supratherapeutic INR Pneumonia Qualifiers: Pneumonia type: due to unspecified organism Laterality: left Lung location: lower lobe of lung Qualified Code(s): J18.9 - Pneumonia, unspecified organism Disposition: Admitted As Inpatient Condition on Discharge: Fair Time of Disposition: 13:57 - Critical Care Critical Care Time: No Attestation: On , the high probability of a clinically significant, sudden or life threatening deterioration of the following system(s) required my full and direct attention, intervention and personal management. The time I documented below is in addition to time spent performing reported procedures but includes the following listed in this critical care notation. Medical Decision Making - Medical Records Medical records reviewed: Yes: I reviewed the patient's medical records. - Tani Inquiry Pt receiving controlled substance: No Vital Signs: 05/07/20 09:31 05/07/20 09:57 05/07/20 10:34 Temperature 99.1 F Temperature Source Oral Pulse Rate [Left Radial] 88 83 85 Respiratory Rate 20 Blood Pressure [Right Arm] 151/93 H 155/93 H 170/100 H Blood Pressure Mean [Right Arm] 112 113 123 Blood Pressure Source [Right Arm] Automatic Cuff Automatic Cuff Automatic Cuff Blood Pressure Position [Right Arm] Sitting Sitting Sitting 02 Sat by Pulse Oximetry 97 96 96 Oxygen Delivery Method Room Air Room Air Room Air 05/07/20 14:32 Temperature Temperature Source Pulse Rate [Left Radial] 86 Respiratory Rate Blood Pressure [Right Arm] 136/100 H Blood Pressure Mean [Right Arm] 112 Blood Pressure Source [Right Arm] Automatic Cuff Blood Pressure Position [Right Arm] Sitting 02 Sat by Pulse Oximetry 94 L Oxygen Delivery Method Room Air - Lab Data Lab Results 05/07/20 09:35: WBC 13.0 H, RBC 4.67, Hgb 14.2, Hct 43.5, MCV 93.2, MCH 30.4, MCHC 32.7, RDW 16.0, Plt Count 394, MPV 7.0 L, Neut % (Auto) 71.0, Lymph % (Auto) 20.5, [place] % (Auto) 5.3, Eos % (Auto) 2.6, Baso % (Auto) 0.6, Neut # (Auto) 9.3 H, Lymph # (Auto) 2.7, [place] # (Auto) 0.7, Eos # (Auto) 0.3, Baso # (Auto) 0.1 05/07/20 09:35: Sodium 140, Potassium 3.3 L, Chloride 103, Carbon Dioxide 29, Anion Gap 11.3, BUN 10, Creatinine 0.70, Estimated Creat Clear 101, Estimated GFR 87, Est GFR ( Amer) 105, Glucose 109 H, Calcium 9.6, Total Bilirubin 0.6, AST 35, ALT 24, Alkaline Phosphatase 128 H, Troponin I < 0.01, Total Protein 8.2, Albumin 4.5, Globulin 3.7 H, Albumin/Globulin Ratio 1.2 05/07/20 09:35: PT 43.2 H, INR 4.46 H, APTT 46.4 H 05/07/20 09:35: Plasma/Serum Alcohol < 10 05/07/20 13:25: Troponin I < 0.01 05/07/20 14:06: Lactate 1.2 Result diagrams: 05/07/20 09:35 05/07/20 09:35 Orders (Tests/Meds): ED MEDICATIONS Generic Name Dose Route Start Last Admin Trade Name Freq PRN Reason Stop Dose Admin Acetaminophen 650 mg 05/07/20 14:36 Acetaminophen 325mg Tab PO 06/06/20 14:35 Q4HP PRN As Needed for Fever or Pain Azithromycin 500 mg/ Sodium 250 mls @ 250 mls/hr 05/07/20 14:00 Chloride IV 05/21/20 13:59 Q24H SAMARIA Protocol Ceftriaxone Sodium 1 gm/ 50 mls @ 100 mls/hr 05/07/20 14:00 05/07/20 14:10 Sodium Chloride IV 05/21/20 13:59 100 mls/hr Q24H SAMARIA Administration Protocol Ibuprofen 400 mg 05/07/20 14:36 Ibuprofen 400 Mg Tablet PO 06/06/20 14:35 Q6HP PRN Mild Pain Discontinued Medications Generic Name Dose Route Start Last Admin Trade Name Freq PRN Reason Stop Dose Admin Diatrizoate Meglum/Diatrizoate Sod 15 ml 05/07/20 11:22 05/07/20 11:34 Diatrizoate Ratna 66% & Diatrizoate Na 10% 30ml Udc PO 05/07/20 11:23 15 ml ONCE ONE Administration Iopamidol 70 ml 05/07/20 10:14 05/07/20 10:15 Iopamidol-370 (76%);100ml Bottle IV 05/07/20 10:15 70 ml ONCE ONE Administration Sodium Chloride 10 ml 05/07/20 10:14 05/07/20 10:15 Sodium Chloride 0.9% 10ml Syr (Rad Only) IV 05/07/20 10:1
[2020-05-07 09:46] LABS: Basophils # 0.1 K/mm3 (0-0.2); Basophils % 0.6 % (0.1-2.0); Eosinophils # 0.3 K/mm3 (0.0-0.4); Eosinophils % 2.6 % (0.1-12.0); Hematocrit 43.5 % (37.0-47.0); Hemoglobin 14.2 g/dL (12.2-16.2); Lymphocytes # 2.7 K/mm3 (0.7-4.5); Lymphocytes % 20.5 % (10-50); Mean Corpuscular HGB Conc 32.7 g/dL (31.8-35.4); Mean Corpuscular Hemoglobin 30.4 pg (27.0-31.2); Mean Corpuscular Volume 93.2 fl (81-99); Monocytes # 0.7 K/mm3 (0.1-1.0); Monocytes % 5.3 % (1.7-9.3); Neutrophils # 9.3 K/mm3 (1.8-7.8); Platelet Count 394 K/mm3 (142-424); Red Blood Count 4.67 M/mm3 (4.20-5.40)
[2020-05-07 09:53] LABS: Prothrombin Time 43.2 seconds (9.4-11.8)
--- NOTE | 2020-05-07 09:56 | PC.NURSE ---
notified of notification of INR
[2020-05-07 09:58] LABS: Activated Partial Thrombo Time 46.4 seconds (23.6-34.0); INR 4.46 (0.9-1.1)
[2020-05-07 10:05] LABS: Chloride 103 mmol/L (98-107); Potassium 3.3 mmoL/L (3.5-5.1); Sodium 140 mmol/L (136-145)
[2020-05-07 10:07] LABS: Alanine Aminotransferase 24 U/L (12-78); Aspartate Amino Transferase 35 U/L (14-36); Bilirubin,Total 0.6 mg/dl (0.2-1.3); Blood Urea Nitrogen 10 mg/dl (7-17); Creatinine Clearance Estimated 101 mL/min (50-200); Estimated Glomerular Filt Rate 87 ml/min (>60); GFR (African American) 105 ML/MIN (>60)
[2020-05-07 10:08] LABS: Albumin Level 4.5 g/dl (3.5-5.0); Albumin/Globulin Ratio 1.2 (1.1-1.8); Alkaline Phosphatase 128 U/L (38-126); Anion Gap 11.3 mEq/L (5-15); Calcium 9.6 mg/dl (8.4-10.2); Carbon Dioxide 29 mmol/L (22.0-30.0); Ethyl Alcohol < 10 mg/dl (0-10); Globulin 3.7 g/dL (1.3-3.2); Glucose 109 mg/dl (74-100); Total Protein,Serum 8.2 g/dl (6.3-8.2)
[2020-05-07 10:21] LABS: Troponin I < 0.01 ng/ml (0.00-0.034)
--- NOTE | 2020-05-07 11:22 | CT_ITS ---
PROCEDURE: CT ABDOMEN PELVIS W CON CLINICAL INDICATION: gastric mass/ adenopathy COMPARISON: CT CT LUNG SCREENING from 02/27/[address] CHEST W CON from 03/11/2020 TECHNIQUE: IV Contrast: 75ML Isovue 370 Oral Contrast None Axial images obtained with sagittal and coronal reformats. All CT scans at the facility use one or more dose reduction, viz: automated exposure control, ma/kV adjustment per patient size (including targeted exams where dose is matched to indication, i.e. head), or iterative reconstruction technique. FINDINGS: There is increased density in the left lung base medially with diffuse increased attenuation along the left hemidiaphragm medially and in the sub pulmonic area. This is contiguous with the cardia of the stomach and the medial aspect of the spleen. This may be neoplastic or infectious. Suggest upper endoscopy for further evaluation. There is trace left-sided effusion with some faint consolidation in the left lower lobe. There are 2 areas of decreased attenuation in the region of the hilum of the spleen at 13 and 18 mm. These could sequela from pancreatitis as the pancreatic tail does abut this region.. An additional area of decreased attenuation involves the spleen inferiorly and anteriorly. The adrenal glands have an unremarkable appearance. There is mild cortical scarring of the right kidney. No liver lesions apparent. There may be a small stone in the neck of the gallbladder. No intestinal obstruction or free air. There is a small umbilical hernia which contains fat. There is diverticulosis of the sigmoid colon but no evidence of diverticulitis. Scattered small nodes are present in the inguinal area. No acute bony finding. IMPRESSION: Abnormal increased density in the left lung base medially contiguous with the hemidiaphragm and gastric cardia as well as the spleen. This may be neoplastic or inflammatory/infectious. Empyema or subdiaphragmatic abscess not excluded. Upper endoscopy suggested for further evaluation. There are 2 areas of decreased attenuation along the medial aspect of the spleen which could be due to small areas of abscess or sequela from prior pancreatitis. Possible gallstone in the neck of the gallbladder. Dictated by: Jameel Arredondo MD 05/07/2020 15:28 Jameel Arredondo MD in [place] 05/07/2020 15:28
--- NOTE | 2020-05-07 11:45 | PC.NURSE ---
1133 PO contrast finished.
--- NOTE | 2020-05-07 13:21 | PC.NURSE ---
kelli davila speaking with mikal
--- NOTE | 2020-05-07 13:59 | PC.NURSE ---
Dr Benavides speaking with Dr Guidry
[2020-05-07 14:04] LABS: Troponin I < 0.01 ng/ml (0.00-0.034)
--- NOTE | 2020-05-07 14:08 | PC.NURSE ---
Pt is sitting up in chair at this time. Pt does not want to get back up in the bed for v/s she wants to go outside at this time.
[2020-05-07 14:27] LABS: Lactic Acid 1.2 mmol/L (0.7-2.1)
[2020-05-07 16:00] LABS: Coronavirus 19 IgG Antibody Negative (Negative); Coronavirus 19 IgM Antibody Negative (Negative)
--- NOTE | 2020-05-07 17:44 | PC.NURSE ---
Pt arrived to the floor at [id number]
--- NOTE | 2020-05-07 19:45 | HMH.HP ---
*Admission Date: 05/07/20 *Chief complaint: left sided chest pain *History of present illness: 54-year-old female presenting to the emergency department with chest pain. Pain is described as in the left side of her chest, below her breast. Pain is intense, sharp. She has pain with inspiration. Pain with cough. Heavy sensation in her left arm. recently recovered from pneumonia, was treated with antibiotics. She also has a history of upper extremity DVT. Has a stent in her left upper extremity. Is taking warfarin as prescribed. Continues to smoke cigarettes. No fevers, chills, nausea, vomiting. Workup so far has included CT chest and CT abdomen/pelvis. Findings are as relayed below: CT CHEST 1. Persistent increased soft tissue along the cardia of the stomach and in the left subdiaphragmatic region medially with thickening of the soft tissues at this area. These findings could be neoplastic or inflammatory/infectious. Upper endoscopy may provide further evaluation. CT of the abdomen with both IV and oral contrast may also provide further evaluation. Oral contrast should be given at the time immediately before imaging to assure stomach opacification. 2. There is some consolidation in the left lower lobe medially as before with trace left-sided effusion. 3. No evidence of pulmonary embolus or aortic aneurysm or dissection. CT ABDOMEN Abnormal increased density in the left lung base medially contiguous with the hemidiaphragm and gastric cardia as well as the spleen. This may be neoplastic or inflammatory/infectious. Empyema or subdiaphragmatic abscess not excluded. Upper endoscopy suggested for further evaluation. There are 2 areas of decreased attenuation along the medial aspect of the spleen which could be due to small areas of abscess or sequela from prior pancreatitis. Possible gallstone in the neck of the gallbladder. Has been seen and worked up by Dr Bobo, including bronch. Excerpts from his office notes include: 54-year-old significant smoking high risk for lung cancer presented with mediastinal adenopathy at station 7 and 4R. Patient along with this also found to have left lower lobe pulmonary infiltrate which appeared to be infectious than malignant in origin. Overall her pulmonary infiltrate and lymphadenopathy can be likely from infectious etiology however given the high risk we cannot rule out malignancy at this point of time. After discussion with the patient regarding the possible repeating the CTs versus FNA patient opted for EBUS FNA which is performed, negative for malignancy. Patient needs EBUS FNA cultures also positive for methylene resistant staph epidermidis. Plan: -Manage MRSA pneumonia as mentioned above. Will follow with a repeat CT chest in 6 months to document the resolution of the lymphadenopathy We will ask for him to re-evaluate this admission. Will also pursue EGD to delineate findings on CT. [facility] History Medical History: Reports:: Carotid Stenosis, Congestive Heart Failure, Coronary Artery Disease, Deep Vein Thrombosis, Gastroesophageal Reflux Disease(GERD), Hyperlipidemia, Hypertension Denies:: Cancer, Diabetes Mellitus Type 1, Diabetes Mellitus Type 2, MRSA, Seizures *Have you ever received a pneumonia vaccine?: Yes *Have you received a flu vaccine this season?: Yes Other Medical History: Reports: Anemia, Arthritis. Denies: Blood Transfusion Reaction Other Surgeries: Yes: Angiogram, Colonoscopy, , Tubal Ligation, Other Amputation: No Fractures: Yes - *Social History Last grade of school completed: High school graduate Smoking Status: Current every day smoker Tobacco Type: cigarettes # Packs/Day (cigarettes): 1 Alcohol Intake: current Alcohol Intake Frequency:: holidays/special occasions only Substance Use Type: marijuana *Occupational Status:: employed Housing: house Household Members: spouse *Travel in the last 8 weeks: None Family Hx:: Diabetes, Heart Attack,
--- NOTE | 2020-05-07 19:55 | INFXCTL.NOTE ---
SHE IS AOX4, ABLE TO MAKE NEEDS KNOWN TO STAFF, HAS TOLERATED RA WELL SAINCE ARRIVAL TO FLOOR FROM ED, SHE TOLERATED HER DIET WELL, HAS REQUESTED THAT SHE BE ALLOWED TO LEAVE THE FLOOR TO SMOKE AT SOME PINT DURING THE NIGHT, AT THIS TIME SHE IS RESTING IN BED WITH NO NEEDS VOICED.
--- NOTE | 2020-05-07 21:07 | P.CONPHA_ITS ---
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) Pneumonia (Acute) Pleural effusion (Acute) Supratherapeutic INR (Acute) Anticoagulant long-term use (Acute) Hx of deep venous thrombosis (Chronic) Tobacco dependence syndrome (Chronic) - VTE Risk Labs: VTE Related Lab Results Hgb 14.2 g/dL (12.2-16.2) 05/07/20 09:35 Hct 43.5 % (37.0-47.0) 05/07/20 09:35 Plt Count 394 K/mm3 (142-424) 05/07/20 09:35 PT 43.2 seconds (9.4-11.8) H 05/07/20 09:35 INR 4.46 (0.9-1.1) H 05/07/20 09:35 APTT 46.4 seconds (23.6-34.0) H 05/07/20 09:35 BUN 10 mg/dl (7-17) 05/07/20 09:35 Creatinine 0.70 mg/dl (0.52-1.04) 05/07/20 09:35 Estimated Creat Clear 101 mL/min (50-200) 05/07/20 09:35 VTE Score: 10 VTE Risk Level: Moderate Risk Clinical Trial Participant: No - Prophylaxis VTE Prophylaxis Ordered?: Yes Types of VTE Prophylaxis: TEDS Knee High
--- NOTE | 2020-05-07 21:18 | HMH.PHAINT ---
home medication reconciliation completed using list from [facility]
[2020-05-08] VITALS: BP 131/74; PULSE 103; RESP 22; TEMP 37; O2SAT 96
[2020-05-08 04:00] VITALS: BP 139/86; PULSE 107; RESP 19; TEMP 36.9; O2SAT 94
[2020-05-08 05:40] VITALS: BMI 25.1
--- NOTE | 2020-05-08 06:36 | XR_ITS ---
PROCEDURE: XR CHEST 2V CLINICAL HISTORY: cough Cough, pneumonia COMPARISON: CR XR CHEST 2V from 06/01/[address] ANGIO CHEST from 05/07/2020 CR XR CHEST PORTABLE from 05/07/2020 FINDINGS: The cardiomediastinal silhouette and pulmonary vascularity are within normal limits. There remains patchy density in the left lung base which may be related to an area of atelectasis or infiltrate. The remaining lungs are clear. No acute bony abnormalities. Contrast is present in the large bowel from recent CT scan IMPRESSION: No change mild left basilar atelectasis and/or infiltrate Dictated by: Jameel Arredondo MD 05/08/2020 06:43 Jameel Arredondo MD in [place] 05/08/2020 06:43
--- NOTE | 2020-05-08 06:45 | PC.NURSE ---
Pt is A&Ox4. Expiratory wheezing heard bilaterally t/o all lung carlin. Pt verbalized concern last night of possible EGD. Pt was very anxious and stated that I am here for pneumonia, not something for my stomach. After reassuring pt about the purpose of the procedure, pt seemed to calm down. Pt still states I am not getting that scope done. , but has agreed to be open to the discussion. Pt has c/o shoulder/back pain x1 this shift. PRN pain meds given per JUL. Pt did request a warm compress this shift for abdominal area and stated she felt relief from that. No other acute changes or complaints at this time.
--- NOTE | 2020-05-08 07:27 | PC.NURSE ---
Dr. Medina notified about consult on pt.
[2020-05-08 07:48] LABS: Basophils # 0.1 K/mm3 (0-0.2); Basophils % 0.6 % (0.1-2.0); Eosinophils # 0.3 K/mm3 (0.0-0.4); Eosinophils % 2.1 % (0.1-12.0); Hematocrit 38.6 % (37.0-47.0); Hemoglobin 12.9 g/dL (12.2-16.2); Lymphocytes # 2.9 K/mm3 (0.7-4.5); Lymphocytes % 22.8 % (10-50); Mean Corpuscular HGB Conc 33.4 g/dL (31.8-35.4); Mean Corpuscular Hemoglobin 30.8 pg (27.0-31.2); Mean Corpuscular Volume 92.2 fl (81-99); Mean Platelet Volume 7.8 fl (7.4-10.4); Monocytes # 0.7 K/mm3 (0.1-1.0); Monocytes % 5.8 % (1.7-9.3); Neutrophils # 8.8 K/mm3 (1.8-7.8); Neutrophils % 68.7 % (37.0-80.0); Platelet Count 348 K/mm3 (142-424); Red Blood Count 4.18 M/mm3 (4.20-5.40); Red Cell Distribution Width 15.9 % (11.5-17.5); White Blood Count 12.8 K/mm3 (4.8-10.8)
[2020-05-08 08:05] LABS: Anion Gap 11.6 mEq/L (5-15); Blood Urea Nitrogen 8 mg/dl (7-17); Calcium 9.3 mg/dl (8.4-10.2); Carbon Dioxide 26 mmol/L (22.0-30.0); Chloride 103 mmol/L (98-107); Creatinine Clearance Estimated 120 mL/min (50-200); Estimated Glomerular Filt Rate 103 ml/min (>60); GFR (African American) 125 ML/MIN (>60); Glucose 108 mg/dl (74-100); Potassium 3.6 mmoL/L (3.5-5.1); Sodium 137 mmol/L (136-145)
[2020-05-08 08:30] LABS: INR 3.45 (0.9-1.1); Prothrombin Time 34.2 seconds (9.4-11.8)
--- NOTE | 2020-05-08 09:13 | HMH.DCSUM ---
General - General Admission date:: 05/07/20 Discharge date: 05/08/20 HPI HPI: 54-year-old female presenting to the emergency department with chest pain. Pain is described as in the left side of her chest, below her breast. Pain is intense, sharp. She has pain with inspiration. Pain with cough. Heavy sensation in her left arm. recently recovered from pneumonia, was treated with antibiotics. She also has a history of upper extremity DVT. Has a stent in her left upper extremity. Is taking warfarin as prescribed. Continues to smoke cigarettes. No fevers, chills, nausea, vomiting. Workup so far has included CT chest and CT abdomen/pelvis. Findings are as relayed below: CT CHEST 1. Persistent increased soft tissue along the cardia of the stomach and in the left subdiaphragmatic region medially with thickening of the soft tissues at this area. These findings could be neoplastic or inflammatory/infectious. Upper endoscopy may provide further evaluation. CT of the abdomen with both IV and oral contrast may also provide further evaluation. Oral contrast should be given at the time immediately before imaging to assure stomach opacification. 2. There is some consolidation in the left lower lobe medially as before with trace left-sided effusion. 3. No evidence of pulmonary embolus or aortic aneurysm or dissection. CT ABDOMEN Abnormal increased density in the left lung base medially contiguous with the hemidiaphragm and gastric cardia as well as the spleen. This may be neoplastic or inflammatory/infectious. Empyema or subdiaphragmatic abscess not excluded. Upper endoscopy suggested for further evaluation. There are 2 areas of decreased attenuation along the medial aspect of the spleen which could be due to small areas of abscess or sequela from prior pancreatitis. Possible gallstone in the neck of the gallbladder. Has been seen and worked up by Dr Bobo, including bronch. Excerpts from his office notes include: 54-year-old significant smoking high risk for lung cancer presented with mediastinal adenopathy at station 7 and 4R. Patient along with this also found to have left lower lobe pulmonary infiltrate which appeared to be infectious than malignant in origin. Overall her pulmonary infiltrate and lymphadenopathy can be likely from infectious etiology however given the high risk we cannot rule out malignancy at this point of time. After discussion with the patient regarding the possible repeating the CTs versus FNA patient opted for EBUS FNA which is performed, negative for malignancy. Patient needs EBUS FNA cultures also positive for methylene resistant staph epidermidis. Plan: -Manage MRSA pneumonia as mentioned above. Will follow with a repeat CT chest in 6 months to document the resolution of the lymphadenopathy We will ask for him to re-evaluate this admission. Will also pursue EGD to delineate findings on CT. Hospital Course Hospital Course: Earlier this morning patient informed staff she was going to leave AGAINST MEDICAL ADVICE, staff informed her that medical team would begin rounding on inpatients in 10 to 15 minutes and that she would be seen first. Staff reports she became very frustrated and said she was leaving now, IV was DC'd, AGAINST MEDICAL ADVICE paperwork was signed and patient left the unit. Patient was not seen by medical team, attempts will be made to contact patient and follow-up in outpatient setting for EGD and pulmonary. Objective Vital signs: Temp Pulse Resp BP Pulse Ox 98.5 F 107 H 19 139/86 94 L 05/08/20 04:00 05/08/20 04:00 05/08/20 04:00 05/08/20 04:00 05/08/20 04:00 Narrative: Patient had already left the floor when medical team arrived, no assessment was performed Results Labs on day of discharge: Labs from last 24 hours 05/08/20 05/08/20 05/08/20 07:20 07:20 07:20 WBC 12.8 H RBC 4.18 L Hgb 12.9 Hct 38.6 MCV
--- NOTE | 2020-05-08 10:05 | PC.NURSE ---
PT LEFT AMA THIS AM BEFORE DR ROUNDS AT APPX 0730, IV REMOVED AND AMA PAPERWORK SIGNED
== END 2020-05-08 07:30 | disposition left against medical advice (07) ==
LOC: ER 13:57 → 2ND 20:03
PROVIDERS: Admitting Provider Emergency Medicine; Emergency Provider Emergency Medicine; PCP Emergency Medicine; Visit Provider Emergency Medicine
DX: J18.9 Pneumonia, unspecified organism (principal); Z72.0 Tobacco use; Z79.01 Long term (current) use of anticoagulants; Z79.51 Long term (current) use of inhaled steroids; Z95.820 Peripheral vascular angioplasty status with implants and grafts; Z88.8 Allergy status to other drugs, medicaments and biological substances; M47.812 Spondylosis without myelopathy or radiculopathy, cervical region; Z86.718 Personal history of other venous thrombosis and embolism
CPT/HCPCS: 36415; 71045; 71046; 71275; 74177; 80048; 80053; 83605; 84484; 85025; 85610; 85730; 86328; 87040; 93005; 96365; 96374; 96375; 99284; G0378; J0456; Q9967

== ENCOUNTER 2020-05-22 09:54 | Outpatient (CLI) | payer OTHER, SELFPAY | END 2020-05-22 11:05 | disposition home or self-care (01) | LOC: ACC 09:55 | PROVIDERS: Nurse Practitioner Family; PCP Emergency Medicine; Visit Provider Emergency Medicine | DX: Z51.81 Encounter for therapeutic drug level monitoring (principal); Z79.01 Long term (current) use of anticoagulants | CPT/HCPCS: 85610; 99211; G0463 ==

== ENCOUNTER 2020-05-28 15:48 | Emergency (ER) | payer OTHER, SELFPAY ==
--- NOTE | 2020-05-28 | CT_ITS ---
PROCEDURE: CT HEAD/BRAIN WO CON CLINICAL INDICATION: Vertigo while sitting still COMPARISON: No exams were available for comparison TECHNIQUE: Axial images obtained. All CT scans at the facility use one or more dose reduction, viz: automated exposure control, ma/kV adjustment per patient size (including targeted exams where dose is matched to indication, i.e. head), or iterative reconstruction technique. FINDINGS: No midline shift, mass effect, intracranial hemorrhage, hydrocephalus, or extra-axial fluid collection is evident. The calvarium has an unremarkable appearance. No mastoid effusion. No sinus air-fluid level. IMPRESSION: No acute intracranial finding Dictated by: Jameel Arredondo MD 05/28/2020 20:38 Jameel Arredondo MD in [place] 05/29/2020 09:11
[2020-05-28 15:49] VITALS: BP 142/84; PULSE 80; RESP 18; TEMP 36.6; O2SAT 98; BMI 24.5
[2020-05-28 15:50] VITALS: BMI 25.0
--- NOTE | 2020-05-28 15:51 | CT_ITS ---
Procedure: CT ANGIO NECK CLINICAL HISTORY: VERTIGO WHY SITTING STILL COMPARISON: CT CT ANGIO HEAD from 05/28/2020 TECHNIQUE: IV Contrast: 100ml Isovue 370 Axial images obtained with sagittal and coronal reformats. All CT scans at the facility use one or more dose reduction, viz: automated exposure control, ma/kV adjustment per patient size (including targeted exams where dose is matched to indication, i.e. head), or iterative reconstruction technique. FINDINGS: CTA neck: The aortic arch has an unremarkable appearance. A vascular stent is present in the proximal aspect of the left subclavian artery with superior extent ending at the region of the origin of the left vertebral artery. Right carotid: Atheromatous plaque in the right carotid bulb without significant stenosis.. The internal carotid has an unremarkable appearance. No dissection Left carotid: Atheromatous plaque is present at the left carotid bulb without significant stenosis. The remaining internal carotid has an unremarkable appearance. No dissection Vertebrals: Left vertebral is dominant. No significant stenosis or occlusion or dissection. CTA head: Atheromatous calcific plaque is present within the cavernous portion of both ICAs. No significant stenosis. No aneurysm or AVM apparent. The right A1 segment is hypoplastic. There is a primary azygos A2 segment which divides distally with an adjacent hypoplastic left a 2 segment. No major branch occlusion No enhancing lesions. No evidence of sinus thrombosis IMPRESSION: 1. No significant stenosis occlusion or dissection. 2. 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
[2020-05-28 16:10] LABS: Basophils # 0.1 K/mm3 (0-0.2); Eosinophils # 0.3 K/mm3 (0.0-0.4); Eosinophils % 2.7 % (0.1-12.0); Hematocrit 43.7 % (37.0-47.0); Hemoglobin 13.9 g/dL (12.2-16.2); Lymphocytes # 3.8 K/mm3 (0.7-4.5); Lymphocytes % 34.5 % (10-50); Mean Corpuscular HGB Conc 31.8 g/dL (31.8-35.4); Mean Corpuscular Hemoglobin 30.8 pg (27.0-31.2); Mean Corpuscular Volume 96.8 fl (81-99); Mean Platelet Volume 7.2 fl (7.4-10.4); Monocytes # 0.5 K/mm3 (0.1-1.0); Monocytes % 4.9 % (1.7-9.3); Neutrophils # 6.2 K/mm3 (1.8-7.8); Neutrophils % 56.8 % (37.0-80.0); Platelet Count 538 K/mm3 (142-424); Red Blood Count 4.52 M/mm3 (4.20-5.40); Red Cell Distribution Width 15.2 % (11.5-17.5); White Blood Count 10.9 K/mm3 (4.8-10.8)
[2020-05-28 16:13] LABS: Chloride 105 mmol/L (98-107); Potassium 3.8 mmoL/L (3.5-5.1); Sodium 141 mmol/L (136-145)
[2020-05-28 16:15] LABS: Alanine Aminotransferase 28 U/L (12-78); Alkaline Phosphatase 110 U/L (38-126); Anion Gap 12.8 mEq/L (5-15); Aspartate Amino Transferase 44 U/L (14-36); Bilirubin,Total 0.4 mg/dl (0.2-1.3); Blood Urea Nitrogen 14 mg/dl (7-17); Carbon Dioxide 27 mmol/L (22.0-30.0); Creatinine Clearance Estimated 81 mL/min (50-200); Estimated Glomerular Filt Rate 65 ml/min (>60); GFR (African American) 78 ML/MIN (>60)
[2020-05-28 16:16] LABS: Albumin Level 4.6 g/dl (3.5-5.0); Albumin/Globulin Ratio 1.2 (1.1-1.8); Calcium 10.3 mg/dl (8.4-10.2); Glucose 108 mg/dl (74-100); Total Protein,Serum 8.6 g/dl (6.3-8.2)
[2020-05-28 16:26] LABS: INR 2.28 (0.9-1.1); Prothrombin Time 23.5 seconds (9.4-11.8)
--- NOTE | 2020-05-28 17:53 | HMH.EDGENADL ---
ED Disposition Clinical Impression: Vertigo Disposition: Home, Self-Care Condition on Discharge: Good Instructions: DI for Vertigo Additional Instructions: Meclizine as prescribed. Follow-up in the office on Wednesday with Dr. Maxwell as scheduled. Prescriptions: Meclizine HCl [Antivert 25mg tablet] 25 mg PO TIDP PRN #15 tab PRN Reason: Vertigo Transmission Status: Pending to [facility] Referrals: Caesar Maxwell MD [Primary Care Provider] - - Critical Care Critical Care Time: No Attestation: On 05/28/20, the high probability of a clinically significant, sudden or life threatening deterioration of the following system(s) required my full and direct attention, intervention and personal management. The time I documented below is in addition to time spent performing reported procedures but includes the following listed in this critical care notation. Medical Decision Making - Tani Inquiry Pt receiving controlled substance: No Vital Signs: 05/28/20 15:49 Temperature 97.9 F Temperature Source Oral Pulse Rate [Right Radial] 80 Respiratory Rate 18 Blood Pressure [Right Arm] 142/84 H Blood Pressure Mean [Right Arm] 103 Blood Pressure Source [Right Arm] Automatic Cuff Blood Pressure Position [Right Arm] Sitting 02 Sat by Pulse Oximetry 98 Oxygen Delivery Method Room Air - Lab Data Lab Results 05/28/20 15:55: WBC 10.9 H, RBC 4.52, Hgb 13.9, Hct 43.7, MCV 96.8, MCH 30.8, MCHC 31.8, RDW 15.2, Plt Count 538 H, MPV 7.2 L, Neut % (Auto) 56.8, Lymph % (Auto) 34.5, [place] % (Auto) 4.9, Eos % (Auto) 2.7, Baso % (Auto) 1.0, Neut # (Auto) 6.2, Lymph # (Auto) 3.8, [place] # (Auto) 0.5, Eos # (Auto) 0.3, Baso # (Auto) 0.1 05/28/20 15:55: Sodium 141, Potassium 3.8, Chloride 105, Carbon Dioxide 27, Anion Gap 12.8, BUN 14, Creatinine 0.90, Estimated Creat Clear 81, Estimated GFR 65, Est GFR ( Amer) 78, Glucose 108 H, Calcium 10.3 H, Total Bilirubin 0.4, AST 44 H, ALT 28, Alkaline Phosphatase 110, Total Protein 8.6 H, Albumin 4.6, Globulin 4.0 H, Albumin/Globulin Ratio 1.2 05/28/20 15:55: PT 23.5 H, INR 2.28 H Result diagrams: 05/28/20 15:55 05/28/20 15:55 Orders (Tests/Meds): ED MEDICATIONS Discontinued Medications Generic Name Dose Route Start Last Admin Trade Name Freq PRN Reason Stop Dose Admin Sodium Chloride 1,000 mls @ 999 mls/hr 05/28/20 16:00 05/28/20 16:06 Sod Chlor 0.9% 1000ml Bag IV 05/28/20 17:00 999 mls/hr .Q1H1M SAMARIA Administration Iopamidol 100 ml 05/28/20 17:17 05/28/20 17:19 Iopamidol-370 (76%);100ml Bottle IV 05/28/20 17:18 100 ml ONCE ONE Administration Meclizine HCl 25 mg 05/28/20 15:53 05/28/20 16:06 Meclizine 25mg Tablet PO 05/28/20 15:54 25 mg ONCE ONE Administration Sodium Chloride 10 ml 05/28/20 17:17 05/28/20 17:18 Sodium Chloride 0.9% 10ml Syr (Rad Only) IV 05/28/20 17:18 10 ml ONCE ONE Administration Sodium Chloride 100 ml 05/28/20 17:17 05/28/20 17:18 Rad-Sodium Chloride 0.9% 250ml Bag IV 05/28/20 17:18 100 ml ONCE ONE Administration ORDERS Category Date Time Status CT angio head Stat Cat Scan 05/28/20 15:[address] angio neck Stat Cat Scan 05/28/20 15:[address] head/brain wo con Routine Cat Scan 05/28/20 Taken - CT Data CT Scan: Head, Other (CTA head and neck) Time Received: 17:[address] Reviewed: Yes: I have viewed the radiologist's interpretation Findings Narrative: CT head: No acute intracranial findings CT angiogram of head: No acute arterial occlusion. There is an anomalous appearance of the proximal anterior cerebral arterial circulation with hypoplastic right A1, normal A2, fusiform anterior communicating artery which constitutes an azygous A2 which divides more distally with an adjacent hypoplastic left A2. CT angiogram of neck: No significant carotid stenoses. No vertebral occlusions noted in the narrative report. - Physician Consults Physician Consulted: Alissa Time:
[2020-05-28 19:10] VITALS: BP 136/92; PULSE 87; RESP 16; TEMP 36.6; O2SAT 98
== END 2020-05-28 19:13 | disposition home or self-care (01) ==
PROVIDERS: Emergency Provider Emergency Medicine; PCP Emergency Medicine
DX: R42 Dizziness and giddiness (principal); I25.10 Atherosclerotic heart disease of native coronary artery without angina pectoris; K21.9 Gastro-esophageal reflux disease without esophagitis; E78.5 Hyperlipidemia, unspecified; I10 Essential (primary) hypertension; F17.210 Nicotine dependence, cigarettes, uncomplicated; Z91.040 Latex allergy status; Z79.899 Other long term (current) drug therapy
CPT/HCPCS: 70450; 70496; 70498; 80053; 85025; 85610; 96365; 99282; Q9967

== ENCOUNTER → 2020-06-15 08:27 | Outpatient (CLI) | payer OTHER, SELFPAY ==
[2020-06-15 09:45] LABS: Blood Urea Nitrogen 10 mg/dl (7-17); Estimated Glomerular Filt Rate 103 ml/min (>60); GFR (African American) 125 ML/MIN (>60)
== END ==
PROVIDERS: Visit Provider Internal Medicine Medical Oncology
DX: R91.1 Solitary pulmonary nodule (principal)
CPT/HCPCS: 36415; 82565; 84520

== ENCOUNTER 2020-06-17 09:21 | Day surgery (SDC) | payer OTHER, SELFPAY ==
[2020-06-11 14:04] VITALS: BMI 25.5
[2020-06-17] VITALS (7 sets, daily range): BP systolic 106–182; BP diastolic 36–89; PULSE 81–89; RESP 18; TEMP 36.3–36.7; O2SAT 94–99
[2020-06-17 08:57] LABS: Coronavirus 19 IgG Antibody Negative (Negative); Coronavirus 19 IgM Antibody Negative (Negative)
--- NOTE | 2020-06-17 10:16 | HMH.ANESCL ---
[facility] Anesthesia Checklist - Patient Identification Patient Identification: Arm Band - Structural Data Admitted From: Home Planned Operative Procedure/s: egd Consent for Planned Operative Procedure(s) Verified: Yes Verified Documents: Surgical Consent, History and Physical - NPO Status Verified Time NPO: 00:00 - Additional verifications Anesthesia Reactions: No Hx Blood Transfusions: No Blood Transfusion Reaction: No - Airway Assessment C-Spine Mobility Assessed: Yes (mp2) TMJ Mobility Assessed: Yes Dentition: Poor Dentition - Neurological Assessment Level of Consciousness: Awake, Alert - Anesthesia Plan Anesthesia Risk discussed: Yes Anesthesia Plan: Verified ASA Class: III Anesthesia Type: MAC [facility] History I have reviewed the patient's past medical history: Yes Medical History: Reports:: Carotid Stenosis, Congestive Heart Failure, Coronary Artery Disease, Deep Vein Thrombosis, Gastroesophageal Reflux Disease(GERD), Hepatitis (c), Hyperlipidemia, Hypertension Denies:: Cancer, Diabetes Mellitus Type 1, Diabetes Mellitus Type 2, Internal Pacemaker, MRSA, Seizures *Have you ever received a pneumonia vaccine?: Yes *Have you received a flu vaccine this season?: Yes Other Medical History: Reports: Anemia, Arthritis. Denies: Blood Transfusion Reaction Anesthesia experience/problems:: nac Other Surgeries: Yes: Angiogram, Colonoscopy, Coronary Stent, , Tubal Ligation, Other. No: Pacemaker Amputation: No Fractures: Yes - *Social History Last grade of school completed: High school graduate Smoking Status: Current every day smoker Tobacco Type: cigarettes # Packs/Day (cigarettes): 1 Alcohol Intake: current Alcohol Intake Frequency:: a few times a week Substance Use Type: marijuana *Occupational Status:: disabled Housing: house Household Members: spouse *Travel in the last 8 weeks: None Family Hx:: Cancer, Diabetes, Heart Attack, Stroke, Tuberculosis
--- NOTE | 2020-06-17 10:39 | HMH.PROC ---
[facility] Procedure Note Procedure Note:: Upper Endoscopy Procedure Report: Esophagogastroduodenoscopy with cold biopsies and TTS balloon dilation Endoscopost: Bret Carlson II, MD Referring Physician: Ponce Bobo M.D./Caesar Maxwell MD Date of Procedure: June 17, 2020 Equipment: Olympus GIF 180 standard upper endoscope Sedation: MAC sedation Indications: Mrs. Melendez is a 55-year-old female who has had atypical chest pain recently in the left precordium below the breast. This is intense and sharp. She has had pneumonia and received 2 rounds of antibiotics which helped. She recently again saw pulmonology/Ponce Bobo M.D. and he recommended upper endoscopy. The patient has had chronic GERD with reflux esophagitis (reportedly) and has had multiple endoscopies at the [facility]. She has been on omeprazole. The patient does get some dyspepsia with epigastric abdominal discomfort that radiates between her breast. She does have bloating, early satiety and intermittent globus sensation. She reports no nausea or belching. She does report irregular bowel function with both constipation and diarrhea. Procedure: Prior to the procedure, a history and physical exam was performed, and patient's medications and allergies were reviewed. The risks, benefits and alternatives of the sedation and procedure were discussed with the patient. All questions were answered and informed consent was obtained. The patient was brought to the procedure room. Patient identification and proposed procedure were verified by the physician and the nurse. The patient was placed in a left lateral decubitus position and the scope was passed under direct vision. Throughout the procedure, the patient's blood pressure, pulse, and oxygen saturations were monitored continuously. The upper GI endoscopy was accomplished without difficulty. The patient tolerated the procedure well. Findings: The scope was passed directly into the upper esophagus and advanced to the third portion of the duodenum. The post bulbar duodenum and duodenal bulb were normal with normal mucosa and conniventes. Cold biopsies were taken from the post bulbar duodenum to rule out celiac disease. The scope was withdrawn through a normal duodenal bulb and pylorus into the stomach. There was bile reflux with linear reactive gastropathy of the antrum and mild chronic gastritis/erosive gastritis of the body and fundus. Upon retroflexion there was a very small sliding 1 to 2 cm hiatal hernia. 2 biopsies were taken in the antrum and along the lesser curvature for histology to rule out gastritis and/or H pylori. The scope was then withdrawn into the esophagus. There was no evidence of reflux esophagitis or strictures or Schatzki's ring. There were 2 islands of salmon-colored mucosa that were biopsied to rule out short segment Hickey's esophagus. There were tertiary contractions and evidence of moderate esophageal dysmotility. The entire esophagus was dilated to 60 Romanian/20 mm with a TTS hydrostatic balloon. There was mild resistance at the cricopharyngeus. The remainder of the esophageal mucosa was normal. Impression: 1. 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 Nonerosive GERD with moderate esophageal dysmotility and very small sliding hiatal hernia (1 to 2 cm) 3. Bile reflux with mild linear reactive gastropathy (of antrum) and chronic gastritis Plan: I will follow-up the biopsies. I do feel that the patient does have some functional dyspepsia and chronic GERD. I am not fully convinced that her chest pain is related to esophageal dyskinesia or functional GERD. I will discuss additional dietary measures and treatment options.
== END 2020-06-17 11:49 | disposition home or self-care (01) ==
LOC: OUTP 09:22
PROVIDERS: PCP Emergency Medicine; Visit Provider Internal Medicine Gastroenterology
PROC: 0DJ08ZZ Inspection of Upper Intestinal Tract, Via Natural or Artificial Opening Endoscopic (ICD-10-PCS; CPT 43235; principal; 2020-06-17 10:30)
DX: J39.2 Other diseases of pharynx (principal); K21.9 Gastro-esophageal reflux disease without esophagitis; K22.4 Dyskinesia of esophagus; K44.9 Diaphragmatic hernia without obstruction or gangrene; K31.9 Disease of stomach and duodenum, unspecified; K29.70 Gastritis, unspecified, without bleeding; Z87.01 Personal history of pneumonia (recurrent); I65.29 Occlusion and stenosis of unspecified carotid artery; I11.0 Hypertensive heart disease with heart failure; I50.9 Heart failure, unspecified; E78.5 Hyperlipidemia, unspecified; B19.20 Unspecified viral hepatitis C without hepatic coma
CPT/HCPCS: 43239; 43249; 86328; C1726

== ENCOUNTER 2020-06-20 09:49 | Outpatient (CLI) | payer OTHER, SELFPAY ==
--- NOTE | 2020-06-20 10:30 | PC.NURSE ---
PFT and 6 Minute Walk completed on Pt without incident. Albuterol 0.083% given via HHN per written protocol, Pt tolerated tx well.
[2020-06-20 11:45] LABS: PHA INR Fingerstick 1.6 (0.9-1.1)
== END 2020-06-20 11:50 | disposition home or self-care (01) ==
PROVIDERS: PCP Emergency Medicine; Visit Provider Internal Medicine Pulmonary Disease
DX: R06.09 Other forms of dyspnea (principal); Z51.81 Encounter for therapeutic drug level monitoring; Z79.01 Long term (current) use of anticoagulants
CPT/HCPCS: 85610; 94060; 94618; 94726; 94729; 99211; G0463

== ENCOUNTER → 2020-06-26 14:21 | Outpatient (CLI) | payer OTHER, SELFPAY ==
[2020-06-26 14:38] LABS: Amphetamine/Metha Screen,Urine Negative ng/ml (<1000)
[2020-06-26 14:39] LABS: Barbiturates Screen,Urine Negative ng/ml (<200); Benzodiazepines Screen,Urine Negative ng/ml (<200)
[2020-06-26 14:40] LABS: Methadone Screen,Urine Negative ng/ml (<300)
[2020-06-26 14:41] LABS: Cannabinoid Screen,Urine Negative ng/ml (<50); Cocaine Screen,Urine Negative ng/ml (<300)
[2020-06-26 14:42] LABS: Opiate Screen,Urine Positive ng/ml (<300)
[2020-06-26 14:43] LABS: Phencyclidine Screen,Urine Negative ng/ml (<25)
== END ==
PROVIDERS: Visit Provider Emergency Medicine
DX: Z79.899 Other long term (current) drug therapy (principal)
CPT/HCPCS: 80305

== ENCOUNTER → 2020-06-28 11:05 | Outpatient (CLI) | payer OTHER, SELFPAY ==
--- NOTE | 2020-06-28 11:15 | CT_ITS ---
PROCEDURE: CT ABDOMEN WO/W CON CLINICAL HISTORY: Splenic/ gastric fudus abscess/ pancreatic cysyt Follow-up abscess COMPARISON: CT CT CHEST W CON from 03/11/[address] ABDOMEN PELVIS W CON from 05/07/2020 CR XR CHEST 2V from 05/08/2020 TECHNIQUE: Axial images obtained with sagittal and coronal reformats. All CT scans at the facility use one or more dose reduction, viz: automated exposure control, ma/kV adjustment per patient size (including targeted exams where dose is matched to indication, i.e. head), or iterative reconstruction technique. FINDINGS: There is a masslike area of increased density in the left lower lobe inferiorly and centrally. This region measures approximately 3 x 2.6 cm and has developed since the previous exam. This is contiguous with the left hemidiaphragm and may represent an area of masslike consolidation/pneumonia. Cannot exclude neoplastic process. This is contiguous with the left hemidiaphragm. The phlegmonous changes in the left subdiaphragmatic region have shown some improvement. There is some residual thickening of the soft tissues adjacent to the fundus of the stomach and medial to the spleen. A well-circumscribed abscess is not identified. There is some thickening of the wall of the fundus of the stomach. Previously there were 2 hypodense regions at the area of the hilum of the spleen. These are no longer apparent and could have represented small abscesses or small even small areas of pseudo cyst involvement There is some cortical scarring of the right kidney. The adrenal glands have an unremarkable appearance. There is a small left periaortic lymph node at 1.4 cm not significantly changed. IMPRESSION: 1. Interval development of a masslike area of increased density in the left lower lobe abutting the hemidiaphragm and may represent a masslike area of consolidation/pneumonia. Neoplastic process would be included in the differential diagnosis although felt to be less likely since this was not present on the previous study. This abuts the hemidiaphragm and is just cephalad to the previous area of possible subdiaphragmatic abscess. Follow-up suggested to confirm resolution. 2. Phlegmonous changes in the subdiaphragmatic region on the left have shown some improvement. No definite abscess apparent. Dictated by: Jameel Arredondo MD 06/28/2020 14:26 Jameel Arredondo MD in [place] 06/28/2020 14:26
[2020-06-28 11:31] LABS: Blood Urea Nitrogen 14 mg/dl (7-17); Estimated Glomerular Filt Rate 65 ml/min (>60); GFR (African American) 78 ML/MIN (>60)
[2020-06-28 11:55] LABS: INR 1.11 (0.9-1.1); Prothrombin Time 12.2 seconds (9.4-11.8)
== END ==
PROVIDERS: PCP Emergency Medicine; Visit Provider Internal Medicine Pulmonary Disease
DX: R04.2 Hemoptysis (principal); R93.5 Abnormal findings on diagnostic imaging of other abdominal regions, including retroperitoneum
CPT/HCPCS: 36415; 74170; 82565; 84520; 85610; Q9967

== ENCOUNTER → 2020-07-02 16:09 | Outpatient (CLI) | payer OTHER, SELFPAY ==
[2020-07-02 16:38] LABS: Basophils # 0.1 K/mm3 (0-0.2); Eosinophils # 0.4 K/mm3 (0.0-0.4); Eosinophils % 3.3 % (0.1-12.0); Hemoglobin 11.3 g/dL (12.2-16.2); Lymphocytes # 3.5 K/mm3 (0.7-4.5); Lymphocytes % 32.5 % (10-50); Mean Corpuscular HGB Conc 31.3 g/dL (31.8-35.4); Mean Corpuscular Hemoglobin 29.4 pg (27.0-31.2); Mean Corpuscular Volume 93.7 fl (81-99); Mean Platelet Volume 7.3 fl (7.4-10.4); Monocytes # 0.5 K/mm3 (0.1-1.0); Monocytes % 4.4 % (1.7-9.3); Neutrophils # 6.3 K/mm3 (1.8-7.8); Neutrophils % 58.9 % (37.0-80.0); Platelet Count 529 K/mm3 (142-424); Red Blood Count 3.84 M/mm3 (4.20-5.40); Red Cell Distribution Width 14.4 % (11.5-17.5); White Blood Count 10.7 K/mm3 (4.8-10.8)
[2020-07-05 13:57] LABS: Histoplasma Gal'mannan Ag Ur <0.5 (<0.5 ng/mL)
[2020-07-05 14:01] LABS: Aspergillus Antigen, BAL/Serum 0.03 Index (0.00-0.49)
[2020-07-05 17:54] LABS: Fungitell(Beta D-Glucan) Serum <31 pg/mL (<80)
[2020-07-08 15:02] LABS: QuantiFERON-TB Gold Plus Negative (Negative)
[2020-07-12 00:06] LABS: Aspergillus flavus Negative (Neg:<1:1); Aspergillus fumigatus Negative (Neg:<1:1); Aspergillus niger Negative (Neg:<1:1)
[2020-07-12 04:58] LABS: Blastomyces Antibody Negative (Neg:<1:1)
== END ==
PROVIDERS: Visit Provider Internal Medicine Pulmonary Disease
DX: J45.909 Unspecified asthma, uncomplicated (principal); J18.9 Pneumonia, unspecified organism; J84.10 Pulmonary fibrosis, unspecified
CPT/HCPCS: 36415; 85025; 86480; 86606; 86612; 87070; 87186; 87205; 87305; 87385; 87449

== ENCOUNTER 2020-07-12 09:33 | Outpatient (CLI) | payer OTHER, SELFPAY ==
[2020-07-12 11:58] LABS: PHA INR Fingerstick 3.8 (0.9-1.1)
== END 2020-07-12 12:00 | disposition home or self-care (01) ==
PROVIDERS: PCP Emergency Medicine; Visit Provider Nurse Practitioner Family
DX: Z51.81 Encounter for therapeutic drug level monitoring (principal); Z79.01 Long term (current) use of anticoagulants
CPT/HCPCS: 85610; 99211; G0463

== ENCOUNTER 2020-07-19 10:04 | Outpatient (CLI) | payer OTHER, SELFPAY ==
[2020-07-19 11:33] LABS: PHA INR Fingerstick 2.2 (0.9-1.1)
== END 2020-07-19 11:40 | disposition home or self-care (01) ==
LOC: ACC 10:05
PROVIDERS: PCP Emergency Medicine; Visit Provider Nurse Practitioner Family
DX: Z51.81 Encounter for therapeutic drug level monitoring (principal); Z79.01 Long term (current) use of anticoagulants
CPT/HCPCS: 85610; 99211; G0463

== ENCOUNTER 2020-07-26 10:15 | Outpatient (CLI) | payer OTHER, SELFPAY ==
[2020-07-26 11:24] LABS: PHA INR Fingerstick 2.4 (0.9-1.1)
== END 2020-07-26 11:34 | disposition home or self-care (01) ==
LOC: ACC 10:17
PROVIDERS: PCP Emergency Medicine; Visit Provider Emergency Medicine
DX: Z51.81 Encounter for therapeutic drug level monitoring (principal); Z79.01 Long term (current) use of anticoagulants
CPT/HCPCS: 85610; 99211; G0463

== ENCOUNTER → 2020-08-13 10:01 | Outpatient (CLI) | payer OTHER, SELFPAY ==
--- NOTE | 2020-08-13 10:27 | CT_ITS ---
PROCEDURE: CT ANGIO CHEST CLINCIAL INDICATION: Hemoptysis Follow-up bacterial infection COMPARISON: CT CT LUNG SCREENING from 02/27/[address] ANGIO CHEST from 05/07/[address] ABDOMEN PELVIS W CON from 05/07/[address] ABDOMEN WO/W CON from 06/28/2020 TECHNIQUE: IV Contrast: 70ML Isovue 370 Axial images obtained with sagittal and coronal reformats. All CT scans at the facility use one or more dose reduction, viz: automated exposure control, ma/kV adjustment per patient size (including targeted exams where dose is matched to indication, i.e. head), or iterative reconstruction technique. FINDINGS: HEART AND MEDIASTINAL STRUCTURES: No evidence of pulmonary embolus, aortic aneurysm, or aortic dissection. There is a patent proximal left subclavian artery stent. The distal aspect of the stent is at the region of the ostium of the left vertebral artery. No mediastinal or hilar mass. There are scattered small mediastinal lymph nodes not significantly changed. LUNGS AND PLEURAL SPACES: There remains abnormal increased soft tissue density along the cardia of the stomach and in the subdiaphragmatic region as well as irregular parenchymal opacity in the left lung base. The parenchymal opacity in the lung base is less apparent than when compared to the previous exam. There remains some thickening along the posterior aspect of the stomach and the medial aspect of the spleen. This is contiguous with the tail the pancreas. There is some mildly prominent vessels in the upper abdomen in this region. The remaining lungs are clear. BONY STRUCTURES: No acute bony abnormalities apparent. UPPER ABDOMEN: See above under LUNGS ADDITIONAL FINDINGS: No other significant abnormalities. IMPRESSION: 1. No evidence of pulmonary embolus. 2. Persistent parenchymal opacity in the extreme left lung base contiguous with increased density in the upper abdomen along the posterior aspect of the stomach and medial aspect of the spleen contiguous with the tail the pancreas. The consolidation in the lung base appears less prominent than when compared to the previous CT scan of 06/28/2020. The upper quadrant density is not significantly changed. This could represent inflammatory/infectious changes from prior pancreatitis. Neoplasm is not excluded. Continued follow-up is suggested. Has the patient had upper endoscopy to evaluate the gastric fundus? There is some neovascularity in this region. Dictated by: Jameel Arredondo MD 08/13/2020 14:05 Jameel Arredondo MD in [place] 08/13/2020 14:05
[2020-08-13 11:02] LABS: Prothrombin Time 12.9 seconds (10.1-12.5)
[2020-08-13 11:33] LABS: Blood Urea Nitrogen 17 mg/dl (7-17); Estimated Glomerular Filt Rate 65 ml/min (>60); GFR (African American) 78 ML/MIN (>60)
== END ==
PROVIDERS: Nurse Practitioner Family; PCP Emergency Medicine; Visit Provider Internal Medicine Pulmonary Disease
DX: R04.2 Hemoptysis (principal)
CPT/HCPCS: 36415; 71275; 82565; 84520; 85610; Q9967

== ENCOUNTER 2020-08-21 09:30 | Outpatient (CLI) | payer OTHER, SELFPAY ==
[2020-08-21 12:55] LABS: PHA INR Fingerstick 1.7 (0.9-1.1)
== END 2020-08-21 12:57 | disposition home or self-care (01) ==
LOC: ACC 09:30
PROVIDERS: PCP Emergency Medicine; Visit Provider Emergency Medicine
DX: Z51.81 Encounter for therapeutic drug level monitoring (principal); Z79.01 Long term (current) use of anticoagulants
CPT/HCPCS: 85610; 99211; G0463

== ENCOUNTER → 2020-08-21 13:31 | Outpatient (CLI) | payer OTHER, SELFPAY ==
[2020-08-21 14:29] LABS: Barbiturates Screen,Urine Negative ng/ml (<200)
[2020-08-21 14:31] LABS: Amphetamine/Metha Screen,Urine Negative ng/ml (<1000); Benzodiazepines Screen,Urine Negative ng/ml (<200)
[2020-08-21 14:32] LABS: Cannabinoid Screen,Urine Negative ng/ml (<50)
[2020-08-21 14:33] LABS: Cocaine Screen,Urine Negative ng/ml (<300); Methadone Screen,Urine Negative ng/ml (<300)
[2020-08-21 14:34] LABS: Opiate Screen,Urine Negative ng/ml (<300)
[2020-08-21 14:35] LABS: Phencyclidine Screen,Urine Negative ng/ml (<25)
== END ==
PROVIDERS: Visit Provider Emergency Medicine
DX: Z79.899 Other long term (current) drug therapy (principal)
CPT/HCPCS: 80305

== ENCOUNTER → 2020-10-28 17:21 | Outpatient (CLI) | payer OTHER, SELFPAY ==
[2020-10-28 20:03] LABS: Amphetamine/Metha Screen,Urine Negative ng/ml (<1000)
[2020-10-28 20:04] LABS: Barbiturates Screen,Urine Negative ng/ml (<200); Benzodiazepines Screen,Urine Negative ng/ml (<200)
[2020-10-28 20:05] LABS: Cannabinoid Screen,Urine Positive ng/ml (<50)
[2020-10-28 20:06] LABS: Cocaine Screen,Urine Positive ng/ml (<300); Methadone Screen,Urine Negative ng/ml (<300)
[2020-10-28 20:12] LABS: Opiate Screen,Urine Positive ng/ml (<300)
[2020-10-28 20:13] LABS: Phencyclidine Screen,Urine Negative ng/ml (<25)
== END ==
PROVIDERS: Visit Provider Emergency Medicine
DX: M50.30 Other cervical disc degeneration, unspecified cervical region (principal)
CPT/HCPCS: 80305

== ENCOUNTER → 2020-11-07 13:56 | Outpatient (CLI) | payer OTHER, SELFPAY ==
[2020-11-07 15:08] LABS: Barbiturates Screen,Urine Negative ng/ml (<200)
[2020-11-07 15:09] LABS: Amphetamine/Metha Screen,Urine Negative ng/ml (<1000); Benzodiazepines Screen,Urine Negative ng/ml (<200)
[2020-11-07 15:10] LABS: Cocaine Screen,Urine Positive ng/ml (<300)
[2020-11-07 15:11] LABS: Cannabinoid Screen,Urine Negative ng/ml (<50); Methadone Screen,Urine Negative ng/ml (<300)
[2020-11-07 15:12] LABS: Opiate Screen,Urine Positive ng/ml (<300)
[2020-11-07 15:13] LABS: Phencyclidine Screen,Urine Negative ng/ml (<25)
== END ==
PROVIDERS: Visit Provider Emergency Medicine
DX: Z79.899 Other long term (current) drug therapy (principal)
CPT/HCPCS: 80305

== ENCOUNTER → 2020-11-12 13:31 | Outpatient (CLI) | payer OTHER, SELFPAY ==
[2020-11-12 14:30] LABS: Amphetamine/Metha Screen,Urine Negative ng/ml (<1000)
[2020-11-12 14:32] LABS: Cannabinoid Screen,Urine Negative ng/ml (<50)
[2020-11-12 14:33] LABS: Barbiturates Screen,Urine Negative ng/ml (<200); Benzodiazepines Screen,Urine Negative ng/ml (<200)
[2020-11-12 14:34] LABS: Cocaine Screen,Urine Positive ng/ml (<300)
[2020-11-12 14:35] LABS: Methadone Screen,Urine Negative ng/ml (<300); Opiate Screen,Urine Positive ng/ml (<300)
[2020-11-12 14:36] LABS: Phencyclidine Screen,Urine Negative ng/ml (<25)
== END ==
PROVIDERS: Visit Provider Emergency Medicine
DX: Z79.899 Other long term (current) drug therapy (principal)
CPT/HCPCS: 80305

== ENCOUNTER → 2021-05-28 08:12 | Outpatient (CLI) | payer OTHER, SELFPAY ==
--- NOTE | 2021-05-28 08:12 | CT_ITS ---
FINAL REPORT TECHNIQUE: Axial images were obtained through the chest without contrast. This study was performed with techniques to keep radiation doses as low as reasonably achievable (ALARA). Individualized dose reduction techniques using automated exposure control or adjustment of mA and/or kV according to the patient's size were employed. CLINICAL HISTORY: Lung nodule COMPARISON: 06/28/2020 FINDINGS: Left subclavian artery stent is present. There is no evidence of mediastinal mass or adenopathy. The ascending aorta measures 3.7 cm in diameter. The heart size is normal. There is no pericardial or pleural effusion. There is a rounded density in the left lung base measuring 2.8 cm in diameter. A few air bronchograms are seen within the density. Findings have considerably improved since previous and probably related to some postinflammatory residual. No new lesion is identified. IMPRESSION: Improvement in the rounded density in the left lung base as detailed above. Follow-up in one year could confirm stability. Reviewed, Interpreted and Dictated by Omar Wick MD Transcribed by Crista Alanis Authenticated by Omar Wick MD on 05/28/2021 11:33:32 AM [facility]
== END ==
PROVIDERS: PCP Emergency Medicine; Visit Provider Internal Medicine Pulmonary Disease
DX: R91.8 Other nonspecific abnormal finding of lung field (principal)
CPT/HCPCS: 71250

== ENCOUNTER → 2021-05-28 17:58 | Outpatient (CLI) | payer OTHER, SELFPAY ==
[2021-05-28 17:59] LABS: Adenovirus,PCR Not Detected (NotDetected); Bordetella Pertussis Not Detected (NotDetected); Chlamydophila Pneumoniae, PCR Not Detected (NotDetected); Coronavirus 19, PCR Not Detected (NotDetected); Coronavirus 229E Not Detected (NotDetected); Coronavirus NL63 Not Detected (NotDetected); Coronavirus OC43 Not Detected (NotDetected); Coronovirus HKU1,PCR Not Detected (NotDetected); Human Metapneumovirus Not Detected (NotDetected); Influenza A, PCR Not Detected (NotDetected); Influenza AH1, 2009 Not Detected (NotDetected); Influenza AH1, PCR Not Detected (NotDetected); Influenza AH3,PCR Not Detected (NotDetected); Influenza B, PCR Not Detected (NotDetected); Mycoplasma Pneumoniae, PCR Not Detected (NotDetected); Parainfluenza 1, PCR Not Detected (NotDetected); Parainfluenza 2, PCR Not Detected (NotDetected); Parainfluenza 3, PCR Not Detected (NotDetected); Parainfluenza 4, PCR Not Detected (NotDetected); Respiratory Syncytial Virus Not Detected (NotDetected); Rhinovirus/Enterovirus Not Detected (NotDetected)
== END ==
PROVIDERS: Visit Provider Emergency Medicine
DX: R09.81 Nasal congestion (principal); R05.9 Cough, unspecified; J02.9 Acute pharyngitis, unspecified
CPT/HCPCS: 87581; 87632; 87798; C9803; U0003; U0005

== ENCOUNTER → 2021-06-13 08:20 | Outpatient (CLI) | payer OTHER, SELFPAY ==
--- NOTE | 2021-06-13 08:20 | US_ITS ---
FINAL REPORT CLINICAL HISTORY: nausea after eating FINDINGS: RIGHT UPPER QUADRANT ULTRASOUND: Ultrasound images of right upper quadrant were obtained. Limited images of the pancreas are obscured by bowel gas. The liver parenchyma is normal echogenicity. The gallbladder is well-visualized and the wall appears normal. There are no gallstones. The common duct measures 3 mm. The right kidney measures 10.2 cm. IMPRESSION: Normal right upper quadrant ultrasound. Reviewed, Interpreted and Dictated by Tyron Vega III, MD Transcribed by Crista Alanis Authenticated by Tyron Vega III, MD on 06/13/2021 09:59:03 AM [facility]
== END ==
PROVIDERS: PCP Emergency Medicine; Visit Provider Emergency Medicine
DX: R10.9 Unspecified abdominal pain (principal)
CPT/HCPCS: 76705

== ENCOUNTER → 2021-06-17 08:17 | Outpatient (CLI) | payer OTHER, SELFPAY ==
--- NOTE | 2021-06-17 08:18 | CA_ITS ---
FINAL REPORT TECHNIQUE: Color Doppler, duplex Doppler and sparks scale sonography of the bilateral neck arterial vasculature was performed. Velocities were measured in the carotid arteries. Stenosis evaluation based on the validated velocity criteria. CLINICAL HISTORY: LETA HTN FINDINGS: The peak systolic velocity of the right common carotid artery is 102 cm/s. The peak systolic velocity of the right internal carotid artery is 87 cm/s and end diastolic velocity 34 cm/s. The ICA/CCA ratio is 1.7. A mild amount of plaque is present. The right external carotid artery is patent. The right vertebral artery is patent with antegrade flow. The peak systolic velocity of the left common carotid artery is 89 cm/s. The peak systolic velocity of the left internal carotid artery is 107 cm/s and end diastolic velocity 30 cm/s. The ICA/CCA ratio is 1.2. A mild amount of plaque is present. The left external carotid artery is patent.The left vertebral artery is patent with antegrade flow. IMPRESSION: Less than 50% bilateral carotid stenosis. Bilateral patent vertebral arteries with antegrade flow. Reviewed, Interpreted and Dictated by Tyron Vega III, MD Transcribed by Lynnette Key Authenticated by Tyron Vega III, MD on 06/17/2021 10:39:[address] [facility]
== END ==
PROVIDERS: PCP Emergency Medicine; Visit Provider Nurse Practitioner Family
DX: I67.2 Cerebral atherosclerosis (principal)
CPT/HCPCS: 93880

== ENCOUNTER → 2021-06-30 11:32 | Outpatient (CLI) | payer OTHER, SELFPAY | PROVIDERS: Visit Provider Internal Medicine Gastroenterology | DX: Z01.812 Encounter for preprocedural laboratory examination (principal); Z11.52 Encounter for screening for COVID-19; K30 Functional dyspepsia; K58.0 Irritable bowel syndrome with diarrhea; R14.0 Abdominal distension (gaseous); R68.81 Early satiety; K85.90 Acute pancreatitis without necrosis or infection, unspecified | CPT/HCPCS: C9803; U0003; U0005 ==

== ENCOUNTER → 2021-07-03 08:20 | Outpatient (CLI) | payer OTHER, SELFPAY ==
[2021-07-07 23:35] LABS: Pancreatic Elastase, Fecal >500 (>200)
== END ==
PROVIDERS: Visit Provider Internal Medicine Gastroenterology
DX: K30 Functional dyspepsia (principal); K58.0 Irritable bowel syndrome with diarrhea; K85.90 Acute pancreatitis without necrosis or infection, unspecified; R14.0 Abdominal distension (gaseous); R68.81 Early satiety
CPT/HCPCS: 82656

== ENCOUNTER → 2021-08-26 11:14 | Outpatient (CLI) | payer OTHER, SELFPAY ==
[2021-08-26 12:11] LABS: Basophils # 0.1 K/mm3 (0-0.2); Basophils % 1.7 % (0.1-2.0); Eosinophils # 0.2 K/mm3 (0.0-0.4); Eosinophils % 3.6 % (0.1-12.0); Hematocrit 40.4 % (37.0-47.0); Hemoglobin 12.9 g/dL (12.2-16.2); Lymphocytes # 3.6 K/mm3 (0.7-4.5); Lymphocytes % 54.1 % (10-50); Mean Corpuscular HGB Conc 31.8 g/dL (31.8-35.4); Mean Corpuscular Hemoglobin 31.5 pg (27.0-31.2); Mean Corpuscular Volume 99.1 fl (81-99); Mean Platelet Volume 7.7 fl (7.4-10.4); Monocytes # 0.6 K/mm3 (0.1-1.0); Monocytes % 8.8 % (1.7-9.3); Neutrophils # 2.1 K/mm3 (1.8-7.8); Neutrophils % 31.9 % (37.0-80.0); Platelet Count 380 K/mm3 (142-424); Red Blood Count 4.08 M/mm3 (4.20-5.40); Red Cell Distribution Width 14.6 % (11.5-17.5); White Blood Count 6.6 K/mm3 (4.8-10.8)
[2021-08-26 12:25] LABS: MANUAL DIFFERENTIAL MANUAL DIFFERENTIAL (MANUAL DIFF)
[2021-08-26 12:43] LABS: Alanine Aminotransferase 21 U/L (12-78); Albumin Level 3.8 g/dl (3.5-5.0); Albumin/Globulin Ratio 1.5 (1.1-1.8); Alkaline Phosphatase 77 U/L (38-126); Anion Gap 10.9 mEq/L (5-15); Aspartate Amino Transferase 32 U/L (14-36); Bilirubin,Total 0.3 mg/dl (0.2-1.3); Blood Urea Nitrogen 19 mg/dl (7-17); Calcium 8.8 mg/dl (8.4-10.2); Carbon Dioxide 29 mmol/L (22.0-30.0); Chloride 109 mmol/L (98-107); Chol/HDL Ratio 3.8 (1-3.5); Cholesterol 166 mg/dl (140-200); Estimated Glomerular Filt Rate 86 ml/min (>60); GFR (African American) 104 ML/MIN (>60); Globulin 2.6 g/dL (1.3-3.2); Glucose 87 mg/dl (74-100); HDL Cholesterol 44 mg/dl (40-60); Potassium 3.9 mmoL/L (3.5-5.1); Sodium 145 mmol/L (136-145); Total Protein,Serum 6.4 g/dl (6.3-8.2); Triglycerides 307 mg/dl (30-150); VLDL Cholesterol 61 mg/dL (0-40)
[2021-08-26 12:54] LABS: Direct LDL Cholesterol 69.49 mg/dL (100-129)
[2021-08-26 13:00] LABS: 25-OH Vitamin D, Total 26.1 ng/mL (30-100)
[2021-08-26 13:01] LABS: T4 (Thyroxine) 6.8 ug/dl (5.53-11.0)
[2021-08-26 13:14] LABS: Thyroid Stimulating Hormone 1.88 uIU/mL (0.465-4.68)
[2021-08-26 13:48] LABS: Erythrocyte Sedimentation Rate 24 mm/hr (0-30)
[2021-08-26 16:51] LABS: Eosinophils % 5 % (0-3); Lymphocytes % 48 % (10-50); Monocytes % 21 % (2-9); Neutrophils % 22 % (42-76); Platelet Estimate Normal; Total Cells Counted 100
== END ==
PROVIDERS: Visit Provider Emergency Medicine
DX: I10 Essential (primary) hypertension (principal); E78.5 Hyperlipidemia, unspecified; E55.9 Vitamin D deficiency, unspecified
CPT/HCPCS: 36415; 80053; 80061; 82306; 84436; 84443; 85007; 85025; 85651

== ENCOUNTER → 2021-09-02 13:06 | Outpatient (CLI) | payer OTHER, SELFPAY ==
--- NOTE | 2021-09-02 13:10 | CT_ITS ---
FINAL REPORT TECHNIQUE: Thin section axial CT images were obtained through the neck after intravenous contrast administration. Coronal and sagittal reformats were also obtained. This study was performed with techniques to keep radiation doses as low as reasonably achievable (ALARA). Individualized dose reduction techniques using automated exposure control or adjustment of mA and/or kV according to the patient''s size were employed. CLINICAL HISTORY: w/IV contrast TENDERNESS STERNAL NOTCH AREA, NO INJURY. FINDINGS: The nasopharynx, oropharynx, hypopharynx and larynx are unremarkable. There is no mass or adenopathy. The thyroid gland is unremarkable. The visualized sinuses are clear. There are mild degenerative changes of the cervical spine. There are mild degenerative changes of the right sternoclavicular joint with posterior bony overgrowth of the medial right clavicle. Note is made of a left subclavian artery stent. IMPRESSION: Mild degenerative change of the right sternoclavicular joint with posterior bony overgrowth of the medial right clavicle. Reviewed, Interpreted and Dictated by Tyron Vega III, MD Transcribed by Rc Huitron Authenticated by Tyron Vega III, MD on 09/02/2021 02:49:11 PM [facility]
== END ==
PROVIDERS: PCP Emergency Medicine; Visit Provider Emergency Medicine
DX: R49.0 Dysphonia (principal)
CPT/HCPCS: 70491; Q9967

== ENCOUNTER → 2022-04-14 10:04 | Outpatient (CLI) | payer OTHER, SELFPAY ==
--- NOTE | 2022-04-14 10:04 | MR_ITS ---
FINAL REPORT CLINICAL HISTORY: left sided neck and arm pain. symptoms for years. headache. FINDINGS: Multiplanar MR imaging of the cervical spine was performed without contrast. On the sagittal T2-weighted images, disc degeneration is seen throughout. There is no evidence of fracture. The vertebral alignment is normal. The cervical spinal cord has an unremarkable appearance without evidence of mass, edema or syrinx. No significant canal stenosis is identified. The cervicomedullary junction is normal. C2-3: There is no significant canal stenosis or neural foraminal narrowing. C3-4: A small central disc protrusion is present. C4-5: Bilateral uncovertebral osteophytes are present with mild left neural foraminal narrowing. C5-6: An annular disc bulge is present with bilateral uncovertebral osteophytes and moderate bilateral neural foraminal narrowing. C6-7: An annular disc bulge is present. A left paracentral disc protrusion mildly indents the thecal sac. There is possible left C7 nerve root impingement. There is mild left neural foraminal narrowing. C7-T1: There is no significant canal stenosis or neural foraminal narrowing. IMPRESSION: Multilevel degenerative disc disease and spondylosis with areas of neural foraminal narrowing as above. Disc protrusion at C6-7 which mildly indents the thecal sac and possible left C7 nerve root impingement. Reviewed, Interpreted and Dictated by Tyron Vega III, MD Transcribed by Lynnette Key Authenticated and [facility]
== END ==
PROVIDERS: PCP Emergency Medicine; Visit Provider Emergency Medicine
DX: M54.12 Radiculopathy, cervical region (principal)
CPT/HCPCS: 72141; 76376

== ENCOUNTER 2022-12-06 13:41 | Emergency (ER) | payer OTHER, SELFPAY ==
[2022-12-06 13:54] VITALS: BP 129/80; PULSE 88; RESP 19; TEMP 36.9; O2SAT 95; BMI 27.8
--- NOTE | 2022-12-06 13:57 | EXP.UTC ---
Discharge Plan Disposition Patient Disposition: Home, Self-Care Condition: Good Prescriptions Prescriptions: New amoxicillin 500 mg capsule 500 mg PO TID 10 Days Qty: 30 0RF No Action ceftriaxone 1 gram recon soln 1 g IM ONCE Qty: 1 0RF albuterol sulfate 90 mcg/actuation HFA aerosol inhaler 1 inh INHALATION QID PRN (Reason: shortness of breath or wheezing) Qty: 8.5 2RF nicotine 14 mg/24 hr patch 24 hour 1 patch transdermal DAILY Qty: 30 0RF Rx Instructions: step one nicotine 7 mg/24 hr patch 24 hour 1 patch transdermal Q24H Qty: 30 0RF Rx Instructions: step two tretinoin [Retin-A] 0.05 % cream 1 applic topical HS Qty: 45 0RF magnesium oxide 400 mg (241.3 mg magnesium) tablet 400 mg PO DAILY Qty: 30 2RF diazepam [Valium] 5 mg tablet 5 mg PO BID Qty: 60 2RF fluticasone propionate [Flonase Allergy Relief] 50 mcg/actuation spray,suspension 1 spray INTRANASAL DAILY Qty: 16 6RF Rx Instructions: administer into each nostril Xarelto 10 mg tablet See Rx Instructions .ROUTE .COMPLEX Qty: 90 2RF Dose Instruction: TAKE ONE TABLET BY MOUTH EVERY DAY Rx Instructions: TAKE ONE TABLET BY MOUTH EVERY DAY aspirin 81 mg tablet,delayed release (DR/EC) See Rx Instructions .ROUTE .COMPLEX Qty: 90 0RF Dose Instruction: TAKE ONE TABLET BY MOUTH EVERY DAY FOR HEART HEALTH Rx Instructions: TAKE ONE TABLET BY MOUTH EVERY DAY FOR HEART HEALTH cholecalciferol (vitamin D3) 1,250 mcg (50,000 unit) capsule See Rx Instructions .ROUTE .COMPLEX Qty: 12 2RF Dose Instruction: TAKE 1 CAPSULE BY MOUTH ONCE WEEKLY DIRECTED Rx Instructions: TAKE 1 CAPSULE BY MOUTH ONCE WEEKLY DIRECTED metoprolol succinate 25 mg tablet extended release 24 hr See Rx Instructions .ROUTE .COMPLEX Qty: 90 0RF Dose Instruction: TAKE 1 TABLET BY MOUTH ONCE DAILY FOR BLOOD PRESSURE Rx Instructions: TAKE 1 TABLET BY MOUTH ONCE DAILY FOR BLOOD PRESSURE pantoprazole 20 mg tablet,delayed release (DR/EC) See Rx Instructions .ROUTE .COMPLEX Qty: 90 0RF Dose Instruction: TAKE ONE TABLET BY MOUTH EVERY DAY FOR ACID REFLUX Rx Instructions: TAKE ONE TABLET BY MOUTH EVERY DAY FOR ACID REFLUX amlodipine 5 mg tablet See Rx Instructions .ROUTE .COMPLEX Qty: 90 0RF Dose Instruction: TAKE 1 TABLET BY MOUTH ONCE DAILY Rx Instructions: TAKE 1 TABLET BY MOUTH ONCE DAILY atorvastatin 40 mg tablet See Rx Instructions .ROUTE .COMPLEX Qty: 90 0RF Dose Instruction: TAKE 1 TABLET BY MOUTH ONCE DAILY FOR CHOLESTEROL Rx Instructions: TAKE 1 TABLET BY MOUTH ONCE DAILY FOR CHOLESTEROL Referrals Follow up/Referrals: Caesar Maxwell MD [Primary Care Provider] - See instructions Activity Restrictions/Add. Instructions Additional Instructions/Restrictions: *Monitor Temp, Over the counter Motrin or Tylenol as directed/as needed Tylenol every 4 hours and Motrin every 6 hours (as long as your family doctor has told you that you can take it) for fever or pain. and straight to ER if unable to lower temp less than 101.0 after medication given *Warm salt water gargles may help to soothe the throat *Throat Lozenges? *Warm fluids like tea with honey may help to soothe the throat? *Sleep elevated *Humidifier/Vaporizer Your throat swab was sent for culture. Those results are typically sent to your primary care. Be sure to follow up in 2-3 days with your family doctor/primary care physician if no improvement so they can review those result and treat if necessary. If you don?t have a primary care doctor, I recommend you get one but in the mean time, you will have to return to a walk in clinic Follow up IMMEDIATELY for new or worsening symptoms or no Noticeable improvement over the next 48-72 hours. 911 for difficulty breathing or swallowing Clinical Impressions Clinical Impress
[2022-12-06 14:17] LABS: UTC Strep Screen (Rapid) Negative (Negative)
[2022-12-06 14:22] VITALS: BP 129/80; PULSE 88; RESP 19; TEMP 36.9; O2SAT 95
== END 2022-12-06 14:28 | disposition home or self-care (01) ==
PROVIDERS: Emergency Provider Nurse Practitioner; PCP Emergency Medicine
DX: H66.91 Otitis media, unspecified, right ear (principal); F17.210 Nicotine dependence, cigarettes, uncomplicated; J44.9 Chronic obstructive pulmonary disease, unspecified; K21.9 Gastro-esophageal reflux disease without esophagitis; E78.5 Hyperlipidemia, unspecified; Z95.5 Presence of coronary angioplasty implant and graft
CPT/HCPCS: 87880; 99204; 99212; G0463

== ENCOUNTER → 2022-12-22 15:37 | Outpatient (CLI) | payer OTHER, SELFPAY ==
[2022-12-22 12:53] LABS: Adenovirus,PCR Not Detected (NotDetected); Bordetella Pertussis Not Detected (NotDetected); Chlamydophila Pneumoniae, PCR Not Detected (NotDetected); Coronavirus 19, PCR Not Detected (NotDetected); Coronavirus 229E Not Detected (NotDetected); Coronavirus NL63 Not Detected (NotDetected); Coronavirus OC43 Not Detected (NotDetected); Coronovirus HKU1,PCR Not Detected (NotDetected); Human Metapneumovirus Not Detected (NotDetected); Influenza A, PCR Not Detected (NotDetected); Influenza AH1, 2009 Not Detected (NotDetected); Influenza AH1, PCR Not Detected (NotDetected); Influenza AH3,PCR Not Detected (NotDetected); Influenza B, PCR Not Detected (NotDetected); Mycoplasma Pneumoniae, PCR Not Detected (NotDetected); Parainfluenza 1, PCR Not Detected (NotDetected); Parainfluenza 2, PCR Not Detected (NotDetected); Parainfluenza 3, PCR Not Detected (NotDetected); Parainfluenza 4, PCR Not Detected (NotDetected); Respiratory Syncytial Virus Not Detected (NotDetected); Rhinovirus/Enterovirus Not Detected (NotDetected)
== END ==
PROVIDERS: PCP Emergency Medicine; Visit Provider Emergency Medicine
DX: R06.02 Shortness of breath (principal); R10.32 Left lower quadrant pain
CPT/HCPCS: 87581; 87632; 87798

== ENCOUNTER → 2023-01-12 09:25 | Outpatient (CLI) | payer OTHER, SELFPAY ==
--- NOTE | 2023-01-12 09:28 | CT_ITS ---
FINAL REPORT CLINICAL HISTORY: f/u abn ct of chest, upper abd pain COMPARISON: 05/28/2021 FINDINGS: Axial CT images of the chest were obtained with contrast. Coronal and sagittal reformatted images were also obtained. This study was performed with techniques to keep radiation doses as low as reasonably achievable, (ALARA). Individualized dose reduction techniques using automated exposure control or adjustment of mA and/or KV according to the patient's size were employed. Small bilateral nonspecific nodes are again noted. There is a focal opacity along the left hemidiaphragm, measuring 27 mm in size with adjacent atelectasis, essentially unchanged since the prior exam of May 2021. There is increased thickening of the adjacent left hemidiaphragm, and a portion of the stomach appears to extend superior to the hemidiaphragm. The thickening of the hemidiaphragm is more prominent than noted on the prior exam. This may represent an area of loculated inflammation of the stomach with associated inflammatory change in the hemidiaphragm and the adjacent lung. There is an enlarging gastrohepatic ligament node measuring 9 mm, and a stable but large para-aortic node measuring 17 mm. A small left pleural effusion is present as well. No new pulmonary masses or abnormalities are identified. IMPRESSION: Focal opacity along the left hemidiaphragm with increased thickening of the adjacent hemidiaphragm, and a portion of the stomach appears to extend superior to the diaphragm. This is more prominent than noted on the prior CT of May 2021. This may represent an area of loculated inflammation of the stomach with associated inflammatory change in the hemidiaphragm and adjacent lung. Correlation with endoscopy is suggested for further evaluation. No new infiltrates are identified. Reviewed, Interpreted and Dictated by Tyron Vega III, MD Transcribed by Yaneth Cazares Authenticated and [facility]
--- NOTE | 2023-01-12 09:28 | CT_ITS ---
FINAL REPORT CLINICAL HISTORY: severe abd pain COMPARISON: 06/28/2020 FINDINGS: CT OF THE ABDOMEN AND PELVIS WITH CONTRAST Axial CT images of the abdomen and pelvis were obtained after the administration of IV contrast. Coronal and sagittal reformatted images were also obtained and reviewed. This study was performed with techniques to keep radiation doses as low as reasonably achievable (ALARA). Individualized dose reduction techniques using automated exposure control or adjustment of mA and/or kV according to the patient's size were employed. Abdomen: A focal opacity along the diaphragm in the left hemithorax measures 27 mm with adjacent atelectasis, unchanged. However there is increased thickening in the adjacent hemidiaphragm, and a focal portion of the stomach appears to extend superior to the hemidiaphragm. This may represent a loculated area of inflammatory change of the stomach with associated inflammation of the adjacent hemidiaphragm and lung. The heart is normal in size. The liver has an unremarkable appearance, without evidence of mass or biliary ductal dilatation. The spleen is unremarkable. No adrenal mass is present. The pancreas has an unremarkable appearance. The kidneys are normal, without evidence of mass or hydronephrosis. There is mild scarring in the right kidney. The aorta is normal in caliber. There is no free fluid or adenopathy. No mass or abnormal fluid collection is seen. Pelvis: The appendix is not well-visualized. The urinary bladder reveals wall thickening, likely inflammatory No inflammatory process is seen. There is no evidence of mass or adenopathy. There is no evidence of bowel obstruction. IMPRESSION: Focal opacity along the diaphragm with thickening of the adjacent left hemidiaphragm, more prominent than noted on prior CT examination, with a focal portion of the stomach appearing to extend superior to the hemidiaphragm. This may represent a localized inflammatory process of the stomach with associated inflammatory change in the adjacent hemidiaphragm and lung. Would recommend endoscopic correlation for further evaluation. Mild scarring in the right kidney. Mild bladder wall thickening, likely inflammatory. Reviewed, Interpreted and Dictated by Tyron Vega III, MD Transcribed by Yaneth Cazares Authenticated and [facility]
[2023-01-12 10:26] LABS: Blood Urea Nitrogen 12 mg/dl (7-17); Estimated Glomerular Filt Rate 86 ml/min (>60); GFR (African American) 104 ML/MIN (>60)
== END ==
LOC: RAD 09:25
PROVIDERS: PCP Emergency Medicine; Visit Provider Emergency Medicine
DX: R10.9 Unspecified abdominal pain (principal); R69 Illness, unspecified; R93.89 Abnormal findings on diagnostic imaging of other specified body structures
CPT/HCPCS: 36415; 71260; 74177; 82565; 84520; Q9967

== ENCOUNTER → 2023-03-06 09:07 | Outpatient (CLI) | payer OTHER, SELFPAY ==
[2023-03-06 09:39] LABS: Basophils # 0.1 K/mm3 (0-0.2); Basophils % 0.9 % (0.1-2.0); Eosinophils # 0.3 K/mm3 (0.0-0.4); Hemoglobin 14.3 g/dL (12.2-16.2); Lymphocytes # 2.7 K/mm3 (0.7-4.5); Lymphocytes % 28.1 % (10-50); Mean Corpuscular HGB Conc 33.3 g/dL (31.8-35.4); Mean Corpuscular Hemoglobin 33.5 pg (27.0-31.2); Mean Corpuscular Volume 100.4 fl (81-99); Mean Platelet Volume 7.8 fl (7.4-10.4); Monocytes # 0.6 K/mm3 (0.1-1.0); Neutrophils % 62.1 % (37.0-80.0); Platelet Count 439 K/mm3 (142-424); Red Blood Count 4.28 M/mm3 (4.20-5.40); Red Cell Distribution Width 13.4 % (11.5-17.5); White Blood Count 9.6 K/mm3 (4.8-10.8)
[2023-03-06 11:08] LABS: Alanine Aminotransferase 29 U/L (12-78); Albumin Level 4.1 g/dl (3.5-5.0); Albumin/Globulin Ratio 1.5 (1.1-1.8); Alkaline Phosphatase 75 U/L (38-126); Amylase 75 U/L (30-110); Anion Gap 14.3 mEq/L (5-15); Aspartate Amino Transferase 43 U/L (14-36); Bilirubin,Total 0.2 mg/dl (0.2-1.3); Blood Urea Nitrogen 13 mg/dl (7-17); Calcium 9.9 mg/dl (8.4-10.2); Carbon Dioxide 29 mmol/L (22.0-30.0); Chloride 103 mmol/L (98-107); Estimated Glomerular Filt Rate 102 ml/min (>60); GFR (African American) 124 ML/MIN (>60); Globulin 2.8 g/dL (1.3-3.2); Glucose 97 mg/dl (74-100); Lipase 191 U/L (23-300); Potassium 4.3 mmoL/L (3.5-5.1); Sodium 142 mmol/L (136-145); Total Protein,Serum 6.9 g/dl (6.3-8.2)
== END ==
PROVIDERS: PCP Emergency Medicine; Visit Provider Emergency Medicine
DX: K29.70 Gastritis, unspecified, without bleeding (principal)
CPT/HCPCS: 36415; 80053; 82150; 83690; 85025

== ENCOUNTER 2023-06-18 11:02 | Outpatient (CLI) | payer OTHER, SELFPAY ==
[2023-06-18 11:13] LABS: Adenovirus F 40/41, stool Not Detected (NotDetected); Astrovirus Not Detected (NotDetected); Campylobacter Not Detected (NotDetected); Clostridium Difficile A/B, PCR Not Detected (NotDetected); Cryptosporidium Not Detected (NotDetected); Cyclospora Cayetanesis Not Detected (NotDetected); Entamoeba histolytica Not Detected (NotDetected); Enteroaggregative E coli Not Detected (NotDetected); Enteropathogenic E coli Not Detected (NotDetected); Enterotoxigenic E coli Not Detected (NotDetected); Giardia lamblia Not Detected (NotDetected); Norovirus Not Detected (NotDetected); Plesimonas Shigalloides, PCR Not Detected (NotDetected); Rotavirus A Not Detected (NotDetected); Salmonella, PCR Not Detected (NotDetected); Sapovirus Not Detected (NotDetected); Shiga-like toxin E coli Not Detected (NotDetected); Shigella Enterovasive E coli Not Detected (NotDetected); Vibrio Cholerae Not Detected (NotDetected); Vibrio, PCR Not Detected (NotDetected); Yersinia Entercolitica, PCR Not Detected (NotDetected)
== END 2023-06-18 23:59 ==
LOC: LAB.DROPOF 11:03
PROVIDERS: PCP Nurse Practitioner Family; Visit Provider Nurse Practitioner Family
DX: R19.7 Diarrhea, unspecified (principal)
CPT/HCPCS: 87506

== ENCOUNTER 2023-06-30 09:23 | Outpatient (CLI) | payer OTHER, SELFPAY ==
[2023-06-30 10:20] VITALS: PULSE 79; PULSE 91
[2023-06-30] MEDS: ALBUTEROL 0.083% 2.5 MG/3 ML NEB IH (10:20)
== END 2023-06-30 23:59 ==
LOC: RT 09:24
PROVIDERS: PCP Nurse Practitioner Family; Visit Provider Nurse Practitioner Family
DX: R06.09 Other forms of dyspnea (principal); F17.210 Nicotine dependence, cigarettes, uncomplicated; Z12.2 Encounter for screening for malignant neoplasm of respiratory organs
CPT/HCPCS: 94060; 94618; 94640; 94726; 94729

== ENCOUNTER 2023-07-06 09:44 | Outpatient (CLI) | payer OTHER, SELFPAY ==
--- NOTE | 2023-07-06 09:47 | XR_ITS ---
FINAL REPORT CLINICAL HISTORY: Foot pain states possible bunionectomy; comparison xrays for prior COMPARISON: None FINDINGS: RIGHT FOOT: Three views of the right foot were obtained. There is no acute fracture or dislocation. There is mild degenerative change of the great toe. There is no soft tissue abnormality. IMPRESSION: Mild degenerative change without acute bony abnormality. Reviewed, Interpreted and Dictated by Tyron Vega III, MD Transcribed by Мария Storm Authenticated and [facility]
--- NOTE | 2023-07-06 09:47 | XR_ITS ---
FINAL REPORT CLINICAL HISTORY: foot pain states possible bunionectomy; comparison xrays for prior COMPARISON: None FINDINGS: LEFT FOOT: Three views of the left foot were obtained. There is no acute fracture or dislocation. There is mild degenerative change of the great toe. There is no soft tissue abnormality. IMPRESSION: Mild degenerative change without acute bony abnormality. Reviewed, Interpreted and Dictated by Tyron Vega III, MD Transcribed by Мария Storm Authenticated and . [facility]
== END 2023-07-06 23:59 ==
LOC: RAD 09:44
PROVIDERS: PCP Nurse Practitioner Family; Visit Provider Podiatrist
DX: M79.671 Pain in right foot (principal); M79.672 Pain in left foot; M21.611 Bunion of right foot
CPT/HCPCS: 73630

== ENCOUNTER 2023-07-08 09:42 | Outpatient (CLI) | payer OTHER, SELFPAY ==
--- NOTE | 2023-07-08 10:05 | MM_ITS ---
PROCEDURE INFORMATION: Exam: MG Bilateral Screening 3D Mammography Exam date and time: 07/08/2023 9:57 AM Age: 58 years old Clinical indication: Screening examination TECHNIQUE: Imaging protocol: Bilateral Screening tomosynthesis and 2D mammography including computer-aided detection (CAD) when performed. COMPARISON: 1. MG MM DIG MAMM DX UNILAT RT CAD 10/18/2019 1:55 PM 2. MG MM DIG SCREENING MAMM BI W/CAD 09/18/2019 9:09 AM FINDINGS: MAMMOGRAPHY: Breast composition: There are scattered areas of fibroglandular density. Mass: No new or suspicious masses Architectural distortion: None. Calcifications: No suspicious calcifications. Asymmetric density: None. Skin thickening: None. Axillary adenopathy: None. IMPRESSION: No mammographic evidence of malignancy. Annual screening is recommended unless otherwise clinically indicated. ASSESSMENT: BI-RADS Category 1: Negative
== END 2023-07-08 23:59 ==
PROVIDERS: PCP Nurse Practitioner Family; Visit Provider Nurse Practitioner Family
DX: Z12.31 Encounter for screening mammogram for malignant neoplasm of breast (principal)
CPT/HCPCS: 77063; 77067

== ENCOUNTER 2023-09-18 11:43 | Emergency (ER) | payer OTHER, SELFPAY ==
[2023-09-18 12:05] VITALS: BP 136/88; PULSE 114; RESP 18; TEMP 38.2; O2SAT 96; BMI 26.2
--- NOTE | 2023-09-18 12:23 | EXP.UTC ---
Discharge Plan Disposition Patient Disposition: Home, Self-Care Condition: Good Prescriptions Prescriptions: New phenazopyridine 200 mg Tablet 200 mg PO TID 2 Days Qty: 6 0RF cephalexin 500 mg capsule 500 mg PO QID Qty: 40 0RF ondansetron 4 mg Tablet,Disintegrating 4 mg PO Q8H PRN (Reason: Nausea) Qty: 12 0RF No Action fluticasone propionate [Flonase Allergy Relief] 50 mcg/actuation spray,suspension 1 spray INTRANASAL DAILY Qty: 16 6RF Rx Instructions: administer into each nostril Xarelto 10 mg tablet See Rx Instructions .ROUTE .COMPLEX Qty: 90 1RF Dose Instruction: TAKE ONE TABLET BY MOUTH EVERY DAY Rx Instructions: TAKE ONE TABLET BY MOUTH EVERY DAY albuterol sulfate 90 mcg/actuation HFA aerosol inhaler 1 inh INHALATION QID PRN (Reason: shortness of breath or wheezing) Qty: 8.5 2RF diazepam [Valium] 5 mg tablet 5 mg PO DAILY PRN (Reason: anxiety) Qty: 10 2RF Saccharomyces boulardii [Daily Probiotic (S. boulardii)] 250 mg capsule 250 mg PO BID coQ10 (ubiquinol) [Qunol Ryan CoQ10] 100 mg capsule 100 mg PO BID cholecalciferol (vitamin D3) PO DAILY nicotine 21-14-7 mg/24 hr patch, TD daily, sequential 1 patch transdermal Q24H ipratropium-albuterol 0.5 mg-3 mg(2.5 mg base)/3 mL solution for nebulization 3 ml inhalation QID PRN (Reason: shortness of breath or wheezing) 90 Days Qty: 270 3RF Stiolto Respimat 2.5-2.5 mcg/actuation mist 2 puff inhalation DAILY 90 Days Qty: 4 2RF cholecalciferol (vitamin D3) 1,250 mcg (50,000 unit) capsule See Rx Instructions .ROUTE .COMPLEX Qty: 12 0RF Dose Instruction: TAKE 1 CAPSULE BY MOUTH ONCE WEEKLY DIRECTED Rx Instructions: TAKE 1 CAPSULE BY MOUTH ONCE WEEKLY DIRECTED atorvastatin 40 mg tablet See Rx Instructions .ROUTE .COMPLEX Qty: 90 0RF Dose Instruction: TAKE 1 TABLET BY MOUTH ONCE DAILY FOR CHOLESTEROL Rx Instructions: TAKE 1 TABLET BY MOUTH ONCE DAILY FOR CHOLESTEROL aspirin 81 mg tablet,delayed release (DR/EC) See Rx Instructions .ROUTE .COMPLEX Qty: 90 0RF Dose Instruction: TAKE ONE TABLET BY MOUTH EVERY DAY FOR HEART HEALTH Rx Instructions: TAKE ONE TABLET BY MOUTH EVERY DAY FOR HEART HEALTH pantoprazole 20 mg tablet,delayed release (DR/EC) See Rx Instructions .ROUTE .COMPLEX Qty: 90 0RF Dose Instruction: TAKE ONE TABLET BY MOUTH EVERY DAY FOR ACID REFLUX Rx Instructions: TAKE ONE TABLET BY MOUTH EVERY DAY FOR ACID REFLUX metoprolol succinate 25 mg tablet extended release 24 hr See Rx Instructions .ROUTE .COMPLEX Qty: 90 0RF Dose Instruction: TAKE 1 TABLET BY MOUTH ONCE DAILY FOR BLOOD PRESSURE Rx Instructions: TAKE 1 TABLET BY MOUTH ONCE DAILY FOR BLOOD PRESSURE amlodipine 5 mg tablet See Rx Instructions .ROUTE .COMPLEX Qty: 90 0RF Dose Instruction: TAKE 1 TABLET BY MOUTH ONCE DAILY Rx Instructions: TAKE 1 TABLET BY MOUTH ONCE DAILY nicotine 10 mg/mL spray,non-aerosol 1 spray intranasal 8XD Qty: 40 1RF Rx Instructions: Administer into each nostril. Maximum daily dose 4ml (or40mg) magnesium oxide 400 mg (241.3 mg magnesium) tablet See Rx Instructions .ROUTE .COMPLEX Qty: 30 0RF Dose Instruction: TAKE 1 TABLET BY MOUTH ONCE DAILY Rx Instructions: TAKE 1 TABLET BY MOUTH ONCE DAILY Referrals Follow up/Referrals: Sebas Castle APRN [Primary Care Provider] - See instructions Activity Restrictions/Add. Instructions Additional Instructions/Restrictions: Drink plenty of fluids. Take tylenol or ibuprofen for pain or fever. Take the medications as directed. Follow up with your regular doctor. GO TO THE ER FOR ANY WORSENING SYMPTOMS The pyridium will make your urine turn orange, this is an expected side effect. It will stain your clothes if it comes into contact with them. We will culture the urine. That will tell what bacteria is causing your infection and which antibiotics will treat it best. Sometimes the first antibiotic we prescribe turns out to not work against different bacteria. So, make sure you follow up within 3 days if you are not getting better. Clinical Impressions Clinical Impression: UTI (urinary tract infection), Viral syndrome Instructions Patient Instructions: Urinary Tract Infection, Urine Culture, DI for Urinary Tract Infection (UTI), Ondansetron, Phenazopyridine Discharge ED Provider: Quentin Cunningham [facility] [place] HPI General Stated complaint: pain while urinating, vomiting, frequent urination Time Seen by Provider: 09/18/23 12:23 Related Data Home Medications Medication Instructions Recorded Confirmed Saccharomyces boulardii 250 mg 250 mg PO BID 07/06/23 08/18/23 capsule (Daily Probiotic (S. boulardii)) cholecalciferol (vitamin D3) PO DAILY 07/06/23 08/18/23 coQ10 (ubiquinol) 100 mg capsule 100 mg PO BID 07/06/23 08/18/23 (Qunol Ryan CoQ10) nicotine 1 patch transdermal Q24H 07/30/23 08/18/23 21mg/24hr-14mg/24hr-7mg/24hr daily transderm patches,sequentl Previous Rx's Medication Instructions Recorded fluticasone propionate 50 1 spray intranasal DAILY #16 grams 03/19/23 mcg/actuation nasal spray,suspension (Flonase Allergy Relief) rivaroxaban 10 mg tablet (Xarelto) See Rx Instructions .Route 03/19/23 .COMPLEX #90 tabs cholecalciferol (vitamin D3) 1,250 See Rx Instructions .Route 05/10/23 mcg (50,000 unit) capsule .COMPLEX #12 caps atorvastatin 40 mg tablet See Rx Instructions .Route 07/12/23 .COMPLEX #90 tabs aspirin 81 mg tablet,delayed See Rx Instructions .Route 07/19/23 release .COMPLEX #90 tabs pantoprazole 20 mg tablet,delayed See Rx Instructions .Route 07/28/23 release .COMPLEX #90 tabs ipratropium 0.5 mg-albuterol 3 mg 3 ml inhalation QID PRN shortness 07/30/23 (2.5 mg base)/3 mL nebulization of breath or wheezing 90 days #270 soln mL tiotropium 2.5 mcg-olodaterol 2.5 2 puff inhalation DAILY 90 days #4 07/30/23 mcg/actuation mist for inhalation grams (Stiolto Respimat) amlodipine 5 mg tablet See Rx Instructions .Route 08/05/23 .COMPLEX #90 tabs metoprolol succinate 25 mg See Rx Instructions .Route 08/05/23 tablet,extended release 24 hr .COMPLEX #90 tabs albuterol sulfate 90 mcg/actuation 1 inh inhalation QID PRN shortness 08/11/23 aerosol inhaler of breath or wheezing #8.5 grams diazepam 5 mg tablet (Valium) 5 mg PO DAILY PRN anxiety #10 tabs 08/11/23 nicotine 10 mg/mL nasal spray 1 spray intranasal 8XD #40 mL 08/31/23 magnesium oxide 400 mg (241.3 mg See Rx Instructions .Route 09/09/23 magnesium) tablet .COMPLEX #30 tabs cephalexin 500 mg capsule 500 mg PO QID #40 caps 09/18/23 ondansetron 4 mg disintegrating 4 mg PO Q8H PRN Nausea #12 tabs 09/18/23 tablet phenazopyridine 200 mg tablet 200 mg PO TID 2 days #6 tabs 09/18/23 Allergies Allergy/AdvReac Type Severity Reaction Status Date / Time latex Allergy Mild Rash Verified 09/18/23 12:36 shellfish derived AdvReac Mild Verified 09/18/23 12:36 PFSH PFSH Disclaimer: The information contained in this section may have been updated after the patient was seen, as this information can be updated by other users. Medical History (Updated 09/18/23 @ 12:44 by Quentin Cunningham APRN) LGSIL on Pap smear of cervix LGSIL (low grade squamous intraepithelial dysplasia) Diaphragm dysfunction Restrictive lung disease COPD mixed type Nicotine dependence Postmenopausal atrophic vaginitis History of endometriosis Pancreatitis Dizziness Edema History of left common carotid artery stent placement Hx of deep venous thrombosis Carotid artery stenosis HLD (hyperlipidemia) Gastroesophageal reflux disease Family history of heart disease Tobacco dependence syndrome Dyspnea COPD (chronic obstructive pulmonary disease) Coronary artery calcification seen on CT scan Surgical History H/O tubal ligation History of foot surgery History of bunionectomy History of delivery Family History Family/Other Cancer great aunt-breast Mother Cancer lung and cervical Other Coronary artery disease Diabetes Hypertension Stroke Social History Smoking Status: Current every day smoker tobacco type: cigarettes packs per day: 1 second hand exposure: No alcohol intake: current alcohol intake frequency: a few times a week substance use type: marijuana current occupational status: disabled Travel in the last 8 weeks: Inside the [place] household members: spouse housing: house current occupational exposures/hazards: No caffeine: Yes ROS Obtained: Yes All systems reviewed & no additional complaints except as documented Constitutional Constitutional: Reports system reviewed and no additional complaints, except as documented, Denies chills and Denies fever(s) Eyes Eyes: Denies eye discharge ENT Ears, Nose, Mouth, and Throat: Denies dysphagia, Denies sore throat and Denies throat swelling Cardiovascular Cardiovascular: Denies chest pain and Denies dyspnea Respiratory Respiratory: Denies chest congestion, Denies cough and Denies dyspnea Gastrointestinal Gastrointestingal: Denies abdominal pain, constipation, diarrhea, dysphagia, nausea or vomiting Genitourinary Female Genitourinary: Reports as per HPI, Reports dysuria, Reports urinary frequency, Denies urinary incontinence, Reports urinary hesitancy and Reports urinary urgency Musculoskeletal Musculoskeletal: Denies arthralgias and Reports back pain Integumentary/Breasts Skin/Breast: Denies rash Neurologic Neurologic: Denies paresthesias Allergic/Immunologic Allergic/Immunologic: Denies throat swelling Physical Exam General General appearance: alert and in no apparent distress Head Head exam: atraumatic and normocephalic Eye Eye exam: Present normal appearance, PERRL and EOMI ENT ENT exam: Present normal exam, mucous membranes moist, TM's normal bilaterally and normal external ear exam Neck Neck exam: Present normal inspection, full ROM and trachea midline; Absent tenderness, meningismus or lymphadenopathy Chest Chest inspection: Present normal inspection and symmetric chest wall rise; Absent tenderness Respiratory Respiratory exam: Present normal lung sounds bilaterally; Absent respiratory distress, wheezes or stridor Cardiovascular Cardiovascular exam: Present regular rate, normal rhythm and normal heart sounds Abdominal Exam Abdominal exam: Present soft and normal bowel sounds; Absent distention, tenderness, guarding, rebound, rigidity, incision, psoas sign, obturator sign, heel tap sign, Yun's sign, Rovsing's sign or tenderness at McBurney's Point Extremities Exam Extremities exam: Present normal inspection, full ROM and normal capillary refill; Absent tenderness, edema, joint swelling, calf tenderness or cyanosis Back Exam Back exam: Present normal inspection and full ROM; Absent tenderness, CVA tenderness (R) or CVA tenderness (L) Neurological Exam Neurological exam: Present alert, oriented X3 and normal gait Psychiatric Psychiatric exam: Present normal affect and normal mood Skin Skin exam: Present warm, dry, intact and normal color Lymphatic Lymphatic Findings: no adenopathy Medical Decision Making Medical Records Medical records reviewed: No I reviewed the patient's medical records. Tani Squires Pt receiving controlled substance: No Lab Data Lab results reviewed: Yes I reviewed the patient's lab results.
[2023-09-18 12:47] LABS: Apearance,Urine Cloudy (Clear); Color,Urine Orange (Yellow); Glucose,Urine (UA) Negative (Negative); PH,Urine 6.5 (5.0-8.5); Protein,Urine 2+ (Negative); Specific Gravity, Urine 1.025 (1.005-1.030)
[2023-09-18 12:48] LABS: Bilirubin,Urine 2+ (Negative); Blood, Urine 2+ (Negative); Ketones,Urine 1+ (Negative); UTC Leukocyte Esterase,Urine Negative (Negative); UTC Nitrate,Urine Negative (Negative); Urobilinogen,Urine 0.2 EU/dl (0.2)
--- NOTE | 2023-09-18 12:49 | PC.NURSE ---
Sent urine to lab via tube system
[2023-09-18 12:58] VITALS: BP 136/88; PULSE 114; RESP 18; TEMP 38.2; O2SAT 96
== END 2023-09-18 12:58 | disposition home or self-care (01) ==
PROVIDERS: Emergency Provider Nurse Practitioner Family; PCP Nurse Practitioner Family
DX: N39.0 Urinary tract infection, site not specified (principal); R30.0 Dysuria; R35.0 Frequency of micturition; R11.2 Nausea with vomiting, unspecified
CPT/HCPCS: 81003; 87086; 99212; 99214; G0463

== ENCOUNTER 2023-09-23 10:39 | Outpatient (CLI) | payer OTHER, SELFPAY ==
--- NOTE | 2023-09-23 10:42 | XR_ITS ---
FINAL REPORT CLINICAL HISTORY: shortness of breath cough, smoker, HTN COMPARISON: 01/12/2023 FINDINGS: 2 views of the chest were obtained . The heart is normal in size. The mediastinum is within normal limits. There is dense left lower lobe airspace opacity and small pleural effusion. There is no pneumothorax. Osseous structures are unremarkable. IMPRESSION: Dense left lower lobe airspace opacity and small pleural effusion. Reviewed, Interpreted and Dictated by Omar Wick MD Transcribed by Caitlin Hobson Authenticated and [facility]
== END 2023-09-23 23:59 | disposition home or self-care (01) ==
LOC: RAD 10:39
PROVIDERS: PCP Nurse Practitioner Family; Visit Provider Nurse Practitioner Family
DX: J44.9 Chronic obstructive pulmonary disease, unspecified (principal); F17.210 Nicotine dependence, cigarettes, uncomplicated
CPT/HCPCS: 71046

== ENCOUNTER 2024-01-20 10:04 | Outpatient (CLI) | payer OTHER, SELFPAY ==
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
[2024-01-20 18:05] LABS: Coronavirus 19, PCR Not Detected (NotDetected); Influenza A, PCR Not Detected (NotDetected); Influenza B, PCR Not Detected (NotDetected)
[2024-01-20 18:27] LABS: Basophils # 0.1 K/mm3 (0-0.2); Basophils % 1.3 % (0.1-2.0); Eosinophils # 0.2 K/mm3 (0.0-0.4); Eosinophils % 3.4 % (0.1-12.0); Hemoglobin 13.6 g/dL (12.2-16.2); Lymphocytes # 2.4 K/mm3 (0.7-4.5); Lymphocytes % 39.5 % (10-50); Mean Corpuscular HGB Conc 30.3 g/dL (31.8-35.4); Mean Corpuscular Volume 108.9 fl (81-99); Mean Platelet Volume 8.6 fl (7.4-10.4); Monocytes # 0.4 K/mm3 (0.1-1.0); Monocytes % 6.6 % (1.7-9.3); Neutrophils # 2.9 K/mm3 (1.8-7.8); Neutrophils % 49.2 % (37.0-80.0); Platelet Count 342 K/mm3 (142-424); Red Blood Count 4.13 M/mm3 (4.20-5.40); Red Cell Distribution Width 15.5 % (11.5-17.5)
[2024-01-20 19:01] LABS: Alanine Aminotransferase 14 U/L (12-78); Albumin Level 3.8 g/dl (3.5-5.0); Albumin/Globulin Ratio 1.2 (1.1-1.8); Alkaline Phosphatase 86 U/L (38-126); Anion Gap 11.7 mEq/L (5-15); Aspartate Amino Transferase 32 U/L (14-36); Bilirubin,Total 0.4 mg/dl (0.2-1.3); Blood Urea Nitrogen 16 mg/dl (7-17); Calcium 9.1 mg/dl (8.4-10.2); Carbon Dioxide 27 mmol/L (22.0-30.0); Chloride 108 mmol/L (98-107); Cholesterol 187 mg/dl (140-200); Estimated Glomerular Filt Rate 73 ml/min (>60); GFR (African American) 89 ML/MIN (>60); Globulin 3.1 g/dL (1.3-3.2); Glucose 77 mg/dl (74-100); HDL Cholesterol 47 mg/dl (40-60); Potassium 4.7 mmoL/L (3.5-5.1); Sodium 142 mmol/L (136-145); Total Protein,Serum 6.9 g/dl (6.3-8.2); Triglycerides 313 mg/dl (30-150); VLDL Cholesterol 63 mg/dL (0-40)
[2024-01-20 19:13] LABS: Direct LDL Cholesterol 78.36 mg/dL (100-129)
[2024-01-20 19:21] LABS: 25-OH Vitamin D, Total 49.4 ng/mL (30-100)
[2024-01-20 19:32] LABS: Thyroid Stimulating Hormone 2.76 uIU/mL (0.465-4.68)
== END 2024-01-20 23:59 | disposition home or self-care (01) ==
LOC: RAD 10:07
PROVIDERS: PCP Nurse Practitioner Family; Visit Provider Nurse Practitioner Family
DX: R07.81 Pleurodynia (principal); R06.02 Shortness of breath; J06.9 Acute upper respiratory infection, unspecified
CPT/HCPCS: 71046; 80050; 80053; 80061; 82306; 84443; 85025; 87636

== ENCOUNTER 2024-04-10 13:46 | Outpatient (CLI) | payer OTHER, SELFPAY ==
--- NOTE | 2024-04-10 13:51 | XR_ITS ---
FINAL REPORT CLINICAL HISTORY: dyspnea FINDINGS: Two views of the chest were obtained. The heart size and pulmonary vascularity are within normal limits. The mediastinum is normal. No acute pulmonary abnormality is identified. There is no pneumothorax. The bony thorax is intact. IMPRESSION: No active cardiopulmonary disease. Reviewed, Interpreted and Dictated by Tyron Vega III, MD Transcribed by Marisa Lerner Authenticated and [facility]
[2024-04-10 15:16] LABS: Erythrocyte Sedimentation Rate 10 mm/hr (0-30)
[2024-04-10 15:29] LABS: Calcium 8.5 mg/dl (8.4-10.2); Total Protein,Serum 6.2 g/dl (6.3-8.2)
[2024-04-10 15:47] LABS: C-Reactive Protein 0.3 mg/L (0-4)
[2024-04-11 14:13] LABS: Free Kappa Lt Chains 23.4 mg/L (3.3-19.4)
[2024-04-11 16:18] LABS: Calcium, Ionized 4.8 mg/dL (4.5-5.6)
[2024-04-12 16:21] LABS: Albumin 3.6 g/dL (2.9-4.4); Alpha-1-Globulin 0.2 g/dL (0.0-0.4); Alpha-2-Globulin 0.9 g/dL (0.4-1.0); Gamma Globulin 0.9 g/dL (0.4-1.8); Protein, Total 6.6 g/dL (6.0-8.5)
[2024-04-12 17:12] LABS: Immunoglobulin A, Qn 174 mg/dL (87-352); Immunoglobulin G, Qn 994 mg/dL (586-1602); Immunoglobulin M, Qn 71 mg/dL (26-217)
[2024-04-17 15:17] LABS: PDF SCANNED IMAGE
== END 2024-04-10 23:59 | disposition home or self-care (01) ==
LOC: LAB 13:47
PROVIDERS: PCP Nurse Practitioner Family; Visit Provider Internal Medicine
DX: R06.02 Shortness of breath (principal); I99.9 Unspecified disorder of circulatory system; I10 Essential (primary) hypertension; Z86.19 Personal history of other infectious and parasitic diseases; I25.10 Atherosclerotic heart disease of native coronary artery without angina pectoris; J44.9 Chronic obstructive pulmonary disease, unspecified; R06.00 Dyspnea, unspecified; F17.200 Nicotine dependence, unspecified, uncomplicated; E78.2 Mixed hyperlipidemia; Z86.718 Personal history of other venous thrombosis and embolism; Z98.890 Other specified postprocedural states; Z95.828 Presence of other vascular implants and grafts; Z79.01 Long term (current) use of anticoagulants
CPT/HCPCS: 36415; 71046; 82310; 82330; 82784; 83883; 84155; 84165; 85651; 86140; 86334

== ENCOUNTER 2024-04-12 08:55 | Outpatient (CLI) | payer OTHER, SELFPAY ==
[2024-04-14 16:29] LABS: Alpha-1-Globulin, U 5.1 % (.); Alpha-2-Globulin, U 22.3 % (.); Beta Globulin, U 26.5 % (.); Gamma Globulin, U 22.1 % (.); M-Spike, % Not Observed % (Not Observed); Prot,24hr calculated 100 mg/24 hr (30-150); Protein,Total,Urine 11.1 mg/dL (Not Estab.)
[2024-04-17 15:26] LABS: PDF: SCANNED IMAGE
[2024-04-17 17:39] LABS: Albumin, U 37.2 % (.); Alpha-1-Globulin, U 2.2 % (.); Alpha-2-Globulin, U 14.6 % (.); Beta Globulin, U 34.3 % (.); Gamma Globulin, U 11.7 % (.); M-Spike, % Not Observed % (Not Observed); Protein,Total,Urine 194.4 mg/dL (Not Estab.)
[2024-04-18 14:01] LABS: PDF: SCANNED IMAGE
== END 2024-04-12 23:59 | disposition home or self-care (01) ==
LOC: LAB.DROPOF 08:56
PROVIDERS: PCP Nurse Practitioner Family; Visit Provider Internal Medicine
DX: R06.02 Shortness of breath (principal); I99.9 Unspecified disorder of circulatory system; I10 Essential (primary) hypertension; Z86.19 Personal history of other infectious and parasitic diseases; I25.10 Atherosclerotic heart disease of native coronary artery without angina pectoris; J44.9 Chronic obstructive pulmonary disease, unspecified; R06.00 Dyspnea, unspecified; F17.200 Nicotine dependence, unspecified, uncomplicated; E78.2 Mixed hyperlipidemia; Z86.718 Personal history of other venous thrombosis and embolism; Z98.890 Other specified postprocedural states; Z95.828 Presence of other vascular implants and grafts; Z79.01 Long term (current) use of anticoagulants
CPT/HCPCS: 84156; 84166; 86335

== ENCOUNTER 2024-05-17 07:47 | Outpatient (CLI) | payer OTHER, SELFPAY ==
--- NOTE | 2024-05-17 | CA_ITS ---
APPROVED REPORT Exam: Pharmacologic Technologist: Mary Gomes Ht: 5 ft 7 in Wt: 173 lbs BSA: 1.90 m2 HR: 79 bpm BP: 149/87 mmHg Stress Test Details Test: Lexiscan HR Resting HR: 79 bpm Max Heart Rate (APMHR): 159 bpm Max HR Achieved: 126 bpm Target HR (85% APMHR): 135 bpm % of APMHR: 79 Recovery HR: 108 bpm BP Resting BP: 149.0/87.0 mmHg Max BP: 161.0/88.0 mmHg Recovery BP: 124.0/83.0 mmHg ECG Stress ECG Conclusion Symptoms: Chest pressure, shortness of air Arrhythmias/Ectopy: None ST-T Changes: EKG non-diagnostic - Lexiscan Electronically signed by : Shana Hartley MD 05/17/2024 12:36:44
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
[2024-05-17] MEDS: ISOTOPE MYOVIEW (PER STUDY) 1 DOSE IV (09:17)
[2024-05-17] MEDS: SODIUM CHLORIDE 0.9% 10ML SYR (RAD ONLY) 10 ML IV ×2 (09:17)
[2024-05-17] MEDS: REGADENOSON 0.4MG/5ML SYRINGE 0.4 MG IV (09:17)
== END 2024-05-17 23:59 | disposition home or self-care (01) ==
LOC: RAD 07:48
PROVIDERS: PCP Nurse Practitioner Family; Visit Provider Internal Medicine
DX: I25.10 Atherosclerotic heart disease of native coronary artery without angina pectoris (principal); R06.02 Shortness of breath; I10 Essential (primary) hypertension; I99.9 Unspecified disorder of circulatory system; R06.00 Dyspnea, unspecified
CPT/HCPCS: 78452; 93017; 93018; 93306; A9502; J2785

== ENCOUNTER 2024-08-29 09:40 | Outpatient (CLI) | payer OTHER, SELFPAY ==
[2024-08-29 19:24] LABS: Basophils # 0.1 K/mm3 (0-0.2); Eosinophils # 0.2 Kmm3 (0.0-0.4); Eosinophils % 2.3 % (0.1-12.0); Hematocrit 40.7 % (37.0-47.0); Hemoglobin 12.7 g/dL (12.2-16.2); Lymphocytes # 2.2 K/mm3 (0.7-4.5); Lymphocytes % 27.6 % (10-50); Mean Corpuscular HGB Conc 31.2 g/dL (31.8-35.4); Mean Corpuscular Volume 108.8 fl (81-99); Mean Platelet Volume 10.1 fl (7.4-10.4); Monocytes # 0.7 K/mm3 (0.1-1.0); Monocytes % 8.2 % (1.7-9.3); Neutrophils # 4.8 K/mm3 (1.8-7.8); Neutrophils % 60.6 % (37.0-80.0); Nucleated Red Blood Cells # 0 10^3/uL; Nucleated Red Blood Cells % 0 %; Platelet Count 343 K/mm3 (142-424); Red Blood Count 3.74 M/mm3 (4.20-5.40); Red Cell Distribution Width 14.1 % (11.5-17.5); Red Cell Distribution Width-SD 56.1 fL; White Blood Count 7.9 K/mm3 (4.8-10.8)
[2024-08-29 19:54] LABS: Alanine Aminotransferase 31 U/L (12-78); Albumin Level 3.6 g/dl (3.5-5.0); Albumin/Globulin Ratio 1.2 (1.1-1.8); Alkaline Phosphatase 97 U/L (38-126); Amylase 72 U/L (30-110); Anion Gap 11.8 mEq/L (5-15); Aspartate Amino Transferase 38 U/L (14-36); Bilirubin,Total 0.6 mg/dl (0.2-1.3); Blood Urea Nitrogen 11 mg/dl (7-17); Carbon Dioxide 24 mmol/L (22.0-30.0); Chloride 110 mmol/L (98-107); Chol/HDL Ratio 3.9 (1-3.5); Cholesterol 177 mg/dl (140-200); Estimated Glomerular Filt Rate 102 ml/min (>60); GFR (African American) 123 ML/MIN (>60); Globulin 3.1 g/dL (1.3-3.2); Glucose 102 mg/dl (74-100); HDL Cholesterol 45 mg/dl (40-60); Lipase 248 U/L (23-300); Potassium 3.8 mmoL/L (3.5-5.1); Sodium 142 mmol/L (136-145); Total Protein,Serum 6.7 g/dl (6.3-8.2); Triglycerides 212 mg/dl (30-150); VLDL Cholesterol 42 mg/dL (0-40)
[2024-08-29 20:05] LABS: Direct LDL Cholesterol 84.92 mg/dL (100-129)
[2024-09-02 00:15] LABS: HBsAg Screen Negative (Negative); HCV Ab Reactive (Non Reactive); Hep A Ab, IGM Negative (Negative); Hep B Core Ab, IgM Negative (Negative)
== END 2024-08-29 23:59 | disposition home or self-care (01) ==
LOC: LAB.DROPOF 08-31 11:25
PROVIDERS: PCP Family Medicine; Visit Provider Family Medicine
DX: E78.2 Mixed hyperlipidemia (principal); K86.9 Disease of pancreas, unspecified; Z86.19 Personal history of other infectious and parasitic diseases
CPT/HCPCS: 80053; 80061; 80074; 82150; 83690; 85025; 86803

== ENCOUNTER 2024-09-01 10:46 | Outpatient (CLI) | payer OTHER, SELFPAY ==
[2024-09-01 12:06] LABS: 25-OH Vitamin D, Total 74.1 ng/mL (30-100)
[2024-09-01 13:07] LABS: Folate 3.48 ng/mL
[2024-09-01 13:29] LABS: Vitamin B12 232 pg/mL (239-931)
== END 2024-09-01 23:59 | disposition home or self-care (01) ==
LOC: LAB 10:47
PROVIDERS: PCP Family Medicine; Visit Provider Family Medicine
DX: R60.0 Localized edema (principal); I10 Essential (primary) hypertension; E55.9 Vitamin D deficiency, unspecified; Z68.26 Body mass index [BMI] 26.0-26.9, adult; E66.3 Overweight; F17.210 Nicotine dependence, cigarettes, uncomplicated
CPT/HCPCS: 36415; 82306; 82607; 82746

== ENCOUNTER 2024-09-07 11:36 | Outpatient (CLI) | payer OTHER, SELFPAY ==
[2024-09-07 18:08] LABS: Coronavirus 19, PCR Not Detected (NotDetected); Influenza A, PCR Not Detected (NotDetected); Influenza B, PCR Not Detected (NotDetected)
== END 2024-09-07 23:59 | disposition home or self-care (01) ==
LOC: LAB.DROPOF 09-08 13:11
PROVIDERS: PCP Family Medicine; Visit Provider Family Medicine
DX: J02.9 Acute pharyngitis, unspecified (principal)
CPT/HCPCS: 87636

== ENCOUNTER 2024-10-26 12:54 | Outpatient (CLI) | payer OTHER, SELFPAY ==
--- OUTSIDE RECORDS SUMMARY | 2024-10-26 12:56 | XMS_ITS | Patient Health Record ---
Author Organization [facility] [place] Address [address] [place] [address] Care Team Providers Care Form Maker Plaster Name Role Phone JADA SCHNEIDER Primary Care Provider Reason For Referral No Information Medications Medication SIG (Take, Route, Frequency, Duration) Notes Start Date End Date Status Claritin 10 mg for thirty 10/15/2015 Ac tive Coumadin 5 mg 1 (one) tablet(s) or oral once a day for thirty 10/17/2014 Active Coumadin 02/10/2016 Active Aspirin 1 (one) tablet(s) or 10/02/2013 05/03/18 Active Jublia 10% 1 (one) topical once topical once a day for thirty 11/13/2014 Active SUMAtriptan Succinate 4 mg/0.5 mL 1 (one) subcutaneous subcutaneous once a day for thirty 09/18/2014 Active diazePAM 2 mg 1 (one) tablet(s) or orally once a day for one 12/20/2014 Active Folic Acid 1 mg 1 (one) tablet(s) or orally once a day for one 04/27/2014 Active Coumadin 1 mg 1 (one) tablet(s) or oral once a day 11/20/2014 Active Fluticasone Propionate 50 mcg/inh 1 (one) spray nasal nasal 2 times a day for thirty 09/18/2014 Active busPIRone HCl 10 mg 1 (one) tablet(s) or orally 3 times a day for three 11/21/2014 Active Ventolin HFA 1 (one) tablet(s) or 10/02/201305/03 Active Montelukast Sodium 10 mg 1 (one) tablet( s) or oral once a day for thirty 09/18/2014 Active Lisinopril 30 mg for thirty 12/24/2014 Active Problems Problem Type SNOMED Code ICD Code Onset Dates Problem Status W/U Status Risk Notes Problem 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) 10/03/19 14 Active confirmed Audie-Bin Problem Generalized anxiety disorder (38790281) Generalized anxiety disorder (300.02) 10/03/19 14 Active confirmed Audie-Bin Problem Peripheral vascular disease (694863214) Unspecified peripheral vascular disease (443.9) 10/03/19 14 Active confirmed Audie-Bin Problem Essential hypertension (66068298) Unspecified essential hypertension (401.9) 10/03/19 14 Active confirmed Audie-Bin Problem Chronic pancreatitis (281139474) Chronic pancreatitis (577.1) 10/03/19 14 Active confirmed Audie-Bin Problem Diarrhea (54314101) Diarrhea (787.91) 03/12/20 14 Active confirmed Audie-Bin Problem Hematuria (73922643) Hematuria, unspecified (R31.9) 04/27/20 14 Active confirmed Audie-Bin Plan Of Treatment No Information Insurance Providers Payer Name Payer Address Payer Phone Subscriber Number Group Number Insured Name Patient Relationship to Insured Coverage Start Date Coverage End Date [employer] [address] [place] [address] [phone] [id number] Meeta Melendez Self - patient is the insured Medical (General) History Surgical History Surgery Date(Month/Year) ERCP/EGD for pancreatitis evaluation left brachial arterial stent
--- OUTSIDE RECORDS SUMMARY | 2024-10-26 12:56 | XMS_ITS | Encounter Summary ---
Author Organization Healthcare Address [address] [place] [address] Care Team Providers Care Mapping Pilot Name Role Phone Caesar Maxwell MD Primary Care Provider [phone] Sebas Castle APRN Primary Care Provider [phone] Encounter Details Date Type Department Care Team ([facility] st Contact Info) Description 09/23/2023 Orders Only External Location [address] [place] [address] Sebas Castle APRN [address] [place] [address] Social History Tobacco Use Types Packs/Day Years Used Date Smoking Tobacco: Every Day Smokeless Tobacco: Never Alcohol Use Standard Drinks/Week Comments Yes 0 (1 standard drink = 0.6 oz pure alcohol) Alcoholic Drinks/day: Social alcohol use PHQ-2 Answer Date Recorded Patient Health Questionnaire-2 Score 0 07/21/2021 Comments Unknown Sex and Gender Information Value Date Recorded Sex Assigned at Not on file Legal Sex Female 7:55 PM EDT Gender Identity Not on file Sexual Orientation Not on file documented as of this encounter Plan of Treatment Not on file documented as of this encounter Procedures Procedure Name Priority Date/Time Associated Diagnosis Comments XR THORACIC OUTSIDE IMAGES 09/23/2023 10:50 AM EDT documented in this encounter Results * XR THORACIC OUTSIDE IMAGES (09/23/2023 10:50 AM EDT) Anatomical Region Laterality Modality Radiographic Renata ging 09/23/2023 10:5 0 AM EDT us Sebas Castle APRN IMG XR PROCEDURES Final Res ult documented in this encounter Visit Diagnoses Not on filedocumented in this encounter Additional Health Concerns Assessment Noted Time A Body Mass Index follow-up plan has been documented for the patient 07/20/2022 10:19 AM EDT documented as of this encounter Care Teams Mapping Pilot Relationship Specialty Start Date End Date Caesar Maxwell MD [address] [place] [address] PCP - General 09/13/20 11/07/23 Sebas Castle APRN [address], [place] [id number] PCP - General 11/08/23 documented as of this encounter
--- OUTSIDE RECORDS SUMMARY | 2024-10-26 12:56 | XMS_ITS | Clinical Summary ---
Author Organization Healthcare Address [address] [place] [address] Care Team Providers Care Billing Representative Name Role Phone Sebas Castle APRN Primary Care Provider Allergies Active Allergy Reactions Criticality Noted Date Comments Latex Rash,Unknown - Patie nt states they do not know rxn details Low 01/10/2010 Shellfish Allergy Anaphylaxis High 11/18/2009 Medications aspirin 81 MG EC tablet TAKE 1 TABLET DAILY. 06/12/2013 Active fluticasone (Flonase) 50 MCG/ACT nasal spray 06/30/2021 Active atorvastatin (Lipitor) 40 MG tablet 07/02/2022 Active diazePAM (Valium) 5 MG tablet Take 1 tablet (5 mg) by mouth if needed. 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 Immunizations Immunization Administration Dates Next Due Influenza, seasonal, injectable 02/11/2015 Pneumococcal Polysaccharide PPV23 02/11/2015 Family History Medical History Relation Name Comments Cardiac disorder Brother 1 Stroke Brother 2 Depression Brother 3 Diabetes Brother 4 Hypertension Brother 5 Cardiac disorder Father Lung cancer Mother Migraines Other Relation Name Status Comments Brother 1 Brother 2 Brother 3 Brother 4 Brother 5 Father Mother Other Social History Tobacco Use Types Packs/Day Years Used Date Smoking Tobacco: Some Days Cigarettes 0.5 46.5 Started: 1978 Passive Smoke Exposure: Current Smokeless Tobacco: Never Tobacco Cessation:Ready to Q uit: No; Counseling Given: No Comments:Patient is down to about 5 or 6 cigarettes per day Alcohol Use Standard Drinks/Week Comments Yes 0 (1 standard drink = 0.6 oz pure alcohol) Alcoholic Drinks/day: Social alcohol use PHQ-2 Answer Date Recorded Patient Health Questionnaire-2 Score 0 07/21/2021 CAGE ASSESSMENT Answer Date Recorded Cage unable to access Not on file 10/03/2023 Maximum number of drinks you had on a given occasion in the last month? 3 drinks 10/03/2023 How many alcoholic Beverages do you typically drink in a week? 0 - 7 per week 10/03/2023 Have you ever felt you should CUT down on your d rinking? 1 10/03/2023 Have you been ANNOYED by peo ple criticizing your drinking? 0 10/03/2023 Have you felt GUILTY about your drinking? 0 10/03/2023 Have you had a drink first t demetri in the morning ([employer]) to steady your nerves or to get rid of a hangover? 1 10/03/2023 CAGE Questionnaire Score 2 024 Comments Unknown Sex and Gender Information Value Date Recorded Sex Assigned at Not on file Legal Sex Female 7:55 PM EDT Gender Identity Not on file Sexual Orientation Not on file Last Filed Vital Signs Vital Sign Reading Time Taken Comments Blood Pressure 130/87 11/08/2023 9:28 AM EDT Pulse 71 11/08/2023 9:28 AM EDT Temperature 36.6 C (97.8 F) 04/06/2024 1:09 PM EST Respiratory Rate 16 11/08/2023 9:28 AM EDT Oxygen Saturation 94% 11/08/2023 9:28 AM EDT Inhaled Oxygen Concentration - - Weight 78.1 kg (172 lb 2.9 oz) 04/06/2024 1:09 P M EST Height 170.2 cm (5' 7 ) 04/06/2024 1:09 PM EST Body Mass Index 26.97 04/06/2024 1:09 PM EST Plan of Treatment Health Maintenance Due Date Last Done Comments Dental Oral Exam 1965 Dental Prophylaxis 1965 Dental X-Ray: Bitewings 1965 Dental X-Ray: Full Mouth 1965 [facility]-Infant/Child/Adol SDOH Screenings 1965 [facility]- SDOH Screenings 1981 [facility]-Adult SDOH Screenings 1981 CT Colonography 2008 FIT-DNA 2008 FIT 2008 FOBT 2008 Sigmoidoscopy 2008 [facility]-Breast Cancer Screening 11/20/2018 11/20/2016, 0 11/20/2016 [facility]-Pap Smear 04/02/2020 04/02/2017, 03/0 08/2009, 10/24/2003, Additional history exists [facility]-Pneumococcal Vaccine: 50+ Years (2 of 2 - PCV) 02/20/2021 02/21/2020, 02/11/2015 [facility]-Cervical Cancer Screening 04/02/2022 [facility]-HPV/Cotest 04/02/2022 04/02/2017, 03/0 08/2009, 10/24/2003, Additional history exists [facility]-Depression Screening 07/21/2022 07/21/2021 [facility]-DTaP,Tdap,and Td Vaccines (2 - Td or Tdap) 08/12/2023 08/11/2013 [id number] Vaccine ( season) 2024 03/09/2023, 01/29/2022, 04/16/2021, Additional history exists [facility]-Lung Cancer Screening 11/07/20242023, 07/01/2020, 05/25/2018, Additional history exists [facility]-Influenza Vaccine (Season Ended) 2025 03/09/2023, 01/29/2022, 02/12/2021, Additional history exists Colonoscopy 03/16/2027 03/16/2017 [facility]-Colorectal Cancer Screening 03/16/2027 [facility]-RSV Vaccine: 60+ Years or (1 - 1-dose 75+ series) 2038 [facility]-Zoster Vaccines Completed 04/30/2020, 0 [facility]-Hepatitis C Screening Completed 07/01/2020, 05/2017 [facility]-HIV Screening Completed 10/03/2023, , 09/21/2016 [facility]-Obesity Intervention Completed 04/06/2024, 07/02 HPV Vaccines Aged Out No longer eligi ble based on patient's age to complete this topic [facility]-HIB Vaccines Aged Out No longer e ligible based on patient's age to complete this topic [facility]-Hepatitis A Vaccines Aged Out No longer eligible based on patient's age to complete this topic [facility]-IPV Vaccines Aged Out No longer e ligible based on patient's age to complete this topic [facility]-Rotavirus Vaccines Aged Out No lo nger eligible based on patient's age to complete this topic Procedures Procedure Name Priority Date/Time Associated Diagnosis Comments CT CHEST WO IV CONTRAST Routine 11/08/19 8:45 AM EDT Lung nodule ED HIV 1/2 ANTIBODY/ANTIGEN SCREEN WITH REFLEX TO HIV I/II DIFFERENTIATION STAT 10/03/2023 11:47 AM EDT HEPATITIS C ANTIBODY - ED W/REFLEX TO HCV QUANT PCR Routine 07/01/2020 4:04 PM EST CYTO DATA CONVERSION Routine 04/02/2017 12:00 AM EST COLONOSCOPY 03/16/2017 MAMMOGRAPHY BREAST SCREENING TOMOSYNTHESIS BILATERAL Routine 11/20/2016 12:00 PM EDT from Last 3 Months or Most Recently Relevant to Health Maintenance Results * CT Chest wo IV Contrast (11/08/2023 8:45 AM EDT) Anatomical Region Laterality Modality Chest Computed Tomogra phy Impressions 11/08/2023 12:03 PM EDT Interval resolution of previously enlarged masslike consolidation in the left lower lobe with residual areas of scarring and volume loss. New trace left-sided pleural effusion. CRITICAL RESULT: No. COMMUNICATION: Per this written report. By electronically signing this report, I, the attending physician, attest that I have personally reviewed the images/data for the above examination(s) and agree with the final edited report. Drafted by Octavio Jeronimo MD on 11/08/2023 11:16 AM Final report signed by Ian Arana MD on 11/08/2023 12:03 PM Narrative 11/08/2023 12:03 PM EDT CLINICAL INDICATION: Lung nodule, > 8mm TECHNIQUE: Multiple CT helical images were obtained from thoracic inlet through upper abdomen without administration of IV contrast. Total DLP (Dose-Length Product): 398.15 mGy.cm. Please note: The reported value represents the total of one or more individual components during the CT acquisition on this date and at this time, and as such, the same value may appear in more than one CT report depending on the interpreting/reporting physicians. COMPARISON: July 01, [address] FINDINGS: Mediastinum and Pleura: Several prominent subcentimeter mediastinal lymph nodes, likely reactive. Bilateral perihilar calcification. Ectasia of the ascending aorta measured 40 mm, similar compared to prior (series 2, image 46). Trace dependent left pleural effusion. Again noted is left subclavian stent in place. Lungs: No suspicious pulmonary nodules. Resolution of previously seen masslike consolidation in the left lower lobe. Residual groundglass opacities and and atelectasis in the inferior aspect of the left lower lobe. Upper Abdomen: No suspicious lesions in the partially visualized upper abdomen. Musculoskeletal: No suspicious lytic or sclerotic lesion. Procedure Note Ian Arana MD - 11/08/2023 CLINICAL INDICATION: Lung nodule, > 8mm TECHNIQUE: Multiple CT helical images were obtained from thoracic inlet through upperabdomen without administration of IV contrast. Total DLP (Dose-Length Product): 398.15 mGy.cm. Please note: The reportedvalue represents the total of one or more individual components during theCT acquisition on this date and at this time, and as such, the same valuemay appear in more than one CT report depending on theinterpreting/reporting physicians. COMPARISON: July 01, [address] FINDINGS: Mediastinum and Pleura: Several prominent subcentimeter mediastinal lymphnodes, likely reactive. Bilateral perihilar calcification. Ectasia of theascending aorta measured 40 mm, similar compared to prior (series 2, image46). Trace dependent left pleural effusion. Again noted is left subclavianstent in place. Lungs: No suspicious pulmonary nodules. Resolution of previously seenmasslike consolidation in the left lower lobe. Residual groundglassopacities and and atelectasis in the inferior aspect of the left lowerlobe. Upper Abdomen: No suspicious lesions in the partially visualized upperabdomen. Musculoskeletal: No suspicious lytic or sclerotic lesion. IMPRESSION: Interval resolution of previously enlarged masslike consolidation in theleft lower lobe with residual areas of scarring and volume loss. New trace left-sided pleural effusion. CRITICAL RESULT: No. COMMUNICATION: Per this written report. By electronically signing this report, I, the attending physician, kimthat I have personally reviewed the images/data for the aboveexamination(s) and agree with the final edited report. Drafted by Octavio Jeronimo MD on 11/08/2023 11:16 AM Final report signed by Ian Arana MD on 11/08/2023 12:03 PM Robi Landers MD IMG CT PROCEDURES Final Resul t * ED HIV 1/2 Antibody/Antigen Screen w/Reflex to HIV 1/2 Differentiation (10/03/2023 11:47 AM EDT) Pathologist [facility] HIV 1 & 2 Antibody/Antigen Screen Non Reactive Non Reactive 10/03/2023 12:38 PM EDT [facility] Comment:Screening for HIV 1 & 2 antibodies, and P24 antigen is NONREACTIVE. No confirmatory testing is required. Blood Venous blood specimen / Unknown Venipuncture / Unknown 10/03/2023 11:47 AM EDT 10/03/2023 11:57 AM EDT Javan Mandujano MD LAB BLOOD ORDERABLES Final Res ult [facility] [address] [place] [address] * [place] Hepatitis C Antibody (07/01/2020 4:04 PM EST) Pathologist [facility] [place] Hepatitis C Ab POSITIVE This specimen is being sent for confirmation by PCR. Reference Range: Negative [facility] 07/01/2020 4:04 PM EST 07/01/2020 4:25 PM EST us Agustín Das MD LAB BLOOD ORDERABLES Final Result [facility] * Cytology (04/02/2017 12:00 AM EST) 04/02/2017 04/06/2017 12: 12 PM EST Narrative [facility] - 04/21/2017 3:18 PM EST PSYCHIATRIC MR #: [id number] [facility] [address] [place], [place] [address] 1965 (Age: 51) FW Collect Date: 04/02/2017 00:00 Receipt Date: 04/06/2017 12:12 Page 1 DEPARTMENT OF PATHOLOGY AND LABORATORY MEDICINE CYTOPATHOLOGY REPORT Email: [email or web address] [email or web address] ATTENDING MD/Practitioner: Yolanda Quintana Service: OBE Location: [facility] Reported: 04/21/2017 15:18 Collected: 04/02/2017 00:00 INTERPRETATION A. THIN PREP (CERVICAL/VAGINAL): NEGATIVE FOR INTRAEPITHELIAL LESION OR MALIGNANCY. SATISFACTORY FOR EVALUATION; ENDOCERVICAL/ TRANSFORMATION ZONE COMPONENT PRESENT. Slide scanned and imaged by [employer] ThinPrep Imaging System with manual review of all selected carlin. Please see the ASCCP website (www.asccp.org) for followup recommendations. Correlation with the results of HPV testing is also suggested (please call Microbiology at [phone] for results). Electronically Signed Out By JOSH Combs (ASCP) JOSH Combs (ASCP) Cervical cytology is a screening test primarily for squamous cancers and precursors and has associated false negative and positive results. New technologies such as liquid based sampling may decrease but will not eliminate all false negative results. Regular screening and follow-up of unexplained clinical signs and symptoms are recommended to minimize false negative results. Please see the ASCCP website (www.asccp.org) for followup recommendations. If HPV testing was requested, correlation with the results is suggested (please call Microbiology at [phone] for results). CLINICAL INFORMATION: Menstrual History: Postmenopausal Date of Last Menstrual Period: unknown Other Clinical Conditions: HPV testing requested. SPECIMEN DESCRIPTION: A: THIN PREP (CERVICAL/VAGINAL) THIN PREP PROCESS CELLULAR ENHANCEMENT ICD: F: A; RT IMAGE 70399 SNOMED CODES: A; [id number] In cases where a pathologist has signed out the report, the service has been rendered in part by a resident. The signing pathologist has performed and is responsible for the reported pathologic evaluation. Abbey Barone [employer] CONDITION[employer] SPECIALIST LAB PATHOLOGY ORDERABLES F inal Result [facility] * COLONOSCOPY (03/16/2017) Anatomical Region Laterality Modality Endoscopy Narrative 03/16/2017 Ordered by an unspecified provider. Historical Provider GI PROCEDURE ORDERABLES F inal Result * Mammography Breast Screening Tomosynthesis Bilateral (11/20/2016 12:00 PM EDT) Anatomical Region Laterality Modality Breast Bilateral Mammography Impressions 11/20/2016 5:00 PM EDT BI-RADS Assessment Category 2: Benign finding. RECOMMENDATION: Routine screening mammogram in 1 year. Page 1 of 2 Patient Name:Meeta Prescott : 1965 Age: 51 Gender: femaleDate of Service: 11/20/2016 eferring Phy:Riddhi RobertoAccount: [id number] COMMUNICATION: The results and recommendations will be sent to the patient in a printed lay language version of the imaging report. The mammogram was read with the assistance of CAD and tomosynthesis. FINAL ATTESTATION: By electronically signing this report, I, the attending physician, attest that I have personally reviewed the images/data for the above examination and agree with the final edited report. Read By: Elder Weiss M.D. Signed By: Aneudy Howell M.D. on 11/20/2016 at 05:00:01 PM Page 2 of 2 Read By: ELDER WEISS M.D. Signed By: ANEUDY HOWELL M.D. on 11/20/2016 at 17:00:03 Narrative 11/20/2016 5:00 PM EDT REQUESTING PHYSICIAN: RIDDHI MEJIA REASON FOR EXAMINATION/PROCEDURE: routine EXAMINATION / PROCEDURE: Screening Mamm w/cad Nov 20 2016 - 13:57 RADHA BILATERAL SCREENING Nov 20 2016 - 13:57 HISTORY: Patient is 51 years old and is seen for screening mammography. The patient has the following family history of breast cancer: great aunt. COMPARISON: The present examination has been compared to prior imaging studies performed at an outside location on 08/15/2015 and 09/01. MAMMOGRAM TECHNIQUE: The following mammographic views were obtained: bilateral craniocaudal; bilateral mediolateral oblique; and bilateral tomosynthesis images were obtained. Computer assisted detection was used in the interpretation of this study. FINDINGS: MAMMOGRAM FINDINGS: There are scattered areas of fibroglandular density. There are waxing and waning oval masses in both breasts consistent with cysts as documented in prior ultrasound from outside facility fro m 09/26/2015. There are no suspicious masses, calcifications, or areas of architectural distortion in either breast. IMPRESSION: BI-RADS Assessment Category 2: Benign finding. RECOMMENDATION: Routine screening mammogram in 1 year. COMMUNICATION: The results and recommendations will be sent to the patient in a printed lay language version of the imaging report. The mammogram was read with the assistance of CAD and tomosynthesis. FINAL ATTESTATION: By electronically sign ing this report, I, the attending physician, attest that I have personally reviewed the images/data for the above examination and agree with the final edited report. Read By: ELDER WEISS M.D. Signed By: ANEUDY HOWELL M.D. on 11/20/2016 at 17:00:03 Verified by: ANEUDY HOWELL M.D. on Nov 20 2016 5:00P Transcribed by: [facility] Nov 20 2016 5:00P Dictated by: ELDER WEISS M.D. on Nov 20 2016 5:00P Patient Name:Meeta Prescott : 1965 Age: 51 Gender: femaleDate of Service: 11/20/2016 eferring Phy:Riddhi MejiaAccount: [id number] Riddhi Mejia , FINAL REPORT PROCEDURE: Tomosynthesis Bilateral Screening - bilateral , Screening Mammogram With Cad - bilateral HISTORY: Patient is 51 years old and is seen for screening mammography. The patient has the following family history of breast cancer: great aunt. COMPARISON: The present examination has been compared to prior imaging studies performed at an outside location on 08/15/2015 and 09/26/2015. MAMMOGRAM TECHNIQUE: The following mammographic views were obtained: bilateral craniocaudal; bilateral mediolateral oblique; and bilateral tomosynthesis images were obtained. Computer assisted detection was used in the interpretation of this study. FINDINGS: MAMMOGRAM FINDINGS: There are scattered areas of fibroglandular density. There are waxing and waning oval masses in both breasts consistent with cysts as documented in prior ultrasound from outside facility from 09/26/2015. There are no suspicious masses, calcifications, or areas of architectural distortion in either breast. Procedure Note Wilma Howellarejovanni Gomez - 09/08/2020 REQUESTING PHYSICIAN: RIDDHI MEJIA REASON FOR EXAMINATION/PROCEDURE: routine EXAMINATION / PROCEDURE: Screening Mamm w/cad Nov 20 2016:57 RADHA BILATERAL SCREENING Nov 20 2016 13:57 HISTORY: Patient is 51 years old and is seen for screening mammography. The patient has the following family history of breast cancer: great aunt. COMPARISON: The present examination has been compared to prior imaging studies performed at an outside location on 08/15/2015 and 09/01. MAMMOGRAM TECHNIQUE: The following mammographic views were obtained: bilateral craniocaudal; bilateral mediolateral oblique; and bilateral tomosynthesis images were obtained. Computer assisted detection was used in the interpretation of this study. FINDINGS: MAMMOGRAM FINDINGS: There are scattered areas of fibroglandular density. There are waxing and waning oval masses in both breasts consistent with cysts as documented in prior ultrasound from outside facility fro 09/26/2015. There are no suspicious masses, calcifications, or areas of architectural distortion in either breast. IMPRESSION: BI-RADS Assessment Category 2: Benign finding. RECOMMENDATION: Routine screening mammogram in 1 year. COMMUNICATION: The results and recommendations will be sent to the patient in a printed lay language version of the imaging report. The mammogram was read with the assistance of CAD and tomosynthesis. FINAL ATTESTATION: By electronically sign ing this report, I, the attending physician, attest that I have personally reviewed the images/data for the above examination and agree with the final edited report. Read By: ELDER WEISS M.D. Signed By: ANEUDY HOWELL M.D. on 11/20/2016 at 17:00:03 Verified by: ANEUDY HOWELL M.D. on Nov 20 2016 5:00P [facility] Nov 20 2016 5:00P Dictated by: ELDER WEISS M.D. on Nov 20 2016 5:00P Patient Name:Meeta Prescott : 1965 Age: 51 Gender: femaleDate of Service:11/20/2016 eferring Phy:Riddhi MejiaAccount: [id number] Riddhi Mejia , FINAL REPORT PROCEDURE: Tomosynthesis Bilateral Screening - bilateral , Screening Mammogram WithCad - bilateral HISTORY: Patient is 51 years old and is seen for screening mammography. Thepatient has the following family history of breast cancer: great aunt. COMPARISON: The present examination has been compared to prior imaging studiesperformed at an outside location on 08/15/2015 and 09/26/2015. MAMMOGRAM TECHNIQUE: The following mammographic views were obtained: bilateral craniocaudal;bilateral mediolateral oblique; and bilateral tomosynthesis images were obtained. Computer assisted detection was usedin the interpretation of this study. FINDINGS: MAMMOGRAM FINDINGS: There are scattered areas of fibroglandular density. There are waxing and waning oval masses in both breasts consistent withcysts as documented in prior ultrasound from outside facility from 09/26/2015. There are no suspicious masses, calcifications, or areas of architecturaldistortion in either breast. IMPRESSION: BI-RADS Assessment Category 2: Benign finding. RECOMMENDATION: Routine screening mammogram in 1 year. Page 1 of 2 Patient Name:Meeta Prescott : 1965 Age: 51 Gender: femaleDate of Service:11/20/2016 eferring Phy:Riddhi MejiaAccount: [id number] COMMUNICATION: The results and recommendations will be sent to the patient in a printedlay language version of the imaging report. The mammogram was read with the assistance of CAD and tomosynthesis. FINAL ATTESTATION: By electronically signing this report, I, the attending physician, attestthat I have personally reviewed the images/data for the above examination and agree with the final editedreport. Read By: Elder Weiss M.D. Signed By: Aneudy Howell M.D. on 11/20/2016 at 05:00:01 PM Page 2 of 2 Read By: ELDER WEISS M.D. Signed By: ANEUDY HOWELL M.D. on 11/20/2016 at 17:00:03 us Historical Provider MD AMAYA BI PROCEDURES Final R esult from Last 3 Months or Most Recently Relevant to Health Maintenance Insurance [employer] Care Teams Billing Representative Relationship Specialty Start Date End Date Sebas Castle APRN [address] [place] [id number] PCP - General 11/08/23
--- NOTE | 2024-10-26 13:00 | CT_ITS ---
FINAL REPORT CLINICAL HISTORY: lung cancer screening current smoker, 12 cigarettes per day x 46 years COMPARISON: CT of the chest 01/12/2023, 05/28/2021, 02/27/2020 FINDINGS: CT CHEST LOW DOSE SCREENING 59-year-old female, current smoker, 50-uoyh-ryhf history HISTORY: Screening exam for lung cancer. DOSE: CTDI vol: 2.90 mGy, DLP: 96.38 mGy*cm TECHNIQUE: Axial CT without IV contrast administration using low dose protocol. This study was performed with techniques to keep radiation doses as low as reasonably achievable, (ALARA). Individualized dose reduction techniques using automated exposure control or adjustment of mA and/or kV according to the patient's size were employed. There is a left lower lobe slightly irregular density along the dome of the left hemidiaphragm, which measures 2.9 x 2.1 cm, was previously 2.9 x 2.4 cm in 2021. On sagittal imaging, this region measures up to 10 mm in thickness, was previously 12 mm in thickness. This is considered chronic postinflammatory change. No new pulmonary lesions are seen suspicious for neoplasm. No pleural or pericardial effusion is seen. No adenopathy or mass lesion is present. Note is made of a left subclavian vascular stent. IMPRESSION: 1. No evidence of primary neoplasm 2. Chronic area of scarring in the left lung base. LUNG RADS CATEGORY 2 RECOMMENDATION: 12 month LDCT follow up Reviewed, Interpreted and Dictated by Georgette Metcalf MD Transcribed by Yaneth Cazares Authenticated and [facility]
== END 2024-10-26 23:59 | disposition home or self-care (01) ==
LOC: RAD 12:55
PROVIDERS: PCP Family Medicine; Visit Provider Internal Medicine Pulmonary Disease
DX: J98.4 Other disorders of lung (principal); F17.210 Nicotine dependence, cigarettes, uncomplicated; Z12.2 Encounter for screening for malignant neoplasm of respiratory organs
CPT/HCPCS: 71271

== ENCOUNTER 2024-12-18 11:40 | Emergency (ER) | payer OTHER, SELFPAY ==
[2024-12-18 13:09] VITALS: BP 144/98; PULSE 101; RESP 16; TEMP 36.9; O2SAT 96; BMI 26.6
--- NOTE | 2024-12-18 13:09 | XR_ITS ---
FINAL REPORT CLINICAL HISTORY: Left foot/ankle pain FINDINGS: LEFT ANKLE Three views demonstrate no acute fracture or dislocation. The visualized joint spaces are normally aligned. The soft tissues are unremarkable. IMPRESSION: No acute bony abnormality. Reviewed, Interpreted and Dictated by Omar Wick MD Transcribed by Caitlin Hobson Authenticated and . [facility]
--- NOTE | 2024-12-18 13:09 | XR_ITS ---
FINAL REPORT CLINICAL HISTORY: Left lateral foot pain FINDINGS: LEFT FOOT Three views of the left foot demonstrate no acute fracture or dislocation. The visualized joint spaces are normally aligned. The soft tissues are unremarkable. IMPRESSION: No acute bony abnormality. Reviewed, Interpreted and Dictated by Omar Wick MD Transcribed by Caitlin Hobson Authenticated and [facility]
--- OUTSIDE RECORDS SUMMARY | 2024-12-18 13:12 | XMS_ITS | Clinical Summary ---
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 or to get [...] Health Maintenance Due Date Last Done Comments [facility]-Infant/Child/Adol SDOH Screenings 1965 [facility]- SDOH Screenings 1981 [facility]-Adult SDOH Screenings 1981 CT Colonography 2008 FIT-DNA 2008 FIT 2008 FOBT 2008 Sigmoidoscopy 2008 [facility]-Breast Cancer Screening 11/20/2018 11/20/2016, 0 11/20/2016 [facility]-Pap Smear 04/02/2020 04/02/2017, 08/2009, 10/24/2003, Additional history exists [facility]-Pneumococcal Vaccine: 50+ Years (2 of 2 - PCV) 02/20/2021 02/21/2020, 02/11/2015 [facility]-Cervical Cancer Screening 04/02/2022 [facility]-HPV/Cotest 04/02/2022 04/02/2017, 05/2016, 07/04/2009, Additional history exists [facility]-Depression Screening 07/21/2022 07/21/2021 [facility]-DTaP,Tdap,and Td Vaccines (2 - Td or Tdap) 08/12/2023 08/11/2013 [id number] Vaccine ( season) 2024 03/09/2023, 01/29/2022, 04/16/2021, Additional history exists [facility]-Lung Cancer Screening 11/07/20242023, 07/01/2020, 05/25/2018, Additional history exists [facility]-Influenza Vaccine (#1) 01/01/202503/09, 01/29/2022, 02/12/2021, Additional history exists Colonoscopy 03/16/2027 03/16/2017 [facility]-Colorectal Cancer Screening 03/16/2027 [facility]-RSV Vaccine: 60+ Years or (1 - 1-dose 75+ series) 2038 [facility]-Zoster Vaccines Completed 04/30/2020, [facility]-Hepatitis C Screening Completed 07/01/2020, 05/2017 [facility]-HIV [...] signing this report, I, the attending physician, ailyn I have personally reviewed the images/data for the aboveexamination(s) and agree with the final edited report. Drafted by Octavio Jeronimo MD on 11/08/2023 11:16 AM Final report signed by Ian Arana MD on 11/08/2023 12:03 PM us Robi Landers MD IMG CT PROCEDURES Final Resul t * ED HIV 1/2 Antibody/Antigen Screen w/Reflex to HIV 1/2 Differentiation (10/03/2023 11:47 AM EDT) HIV 1 & 2 Antibody/Antigen Screen Non Reactive Non Reactive 10/03/2023 12:38 PM EDT [facility] Comment:Screening for HIV 1 & 2 antibodies, and P24 antigen is NONREACTIVE. No confirmatory testing is required. Blood Venous blood specimen / Unknown Venipuncture / Unknown 10/03/2023 11:47 AM EDT 10/03/2023 11:57 AM EDT us Javan Mandujano MD LAB BLOOD ORDERABLES Final Res [facility] [address] [place] [address] * [facility] Hepatitis C Antibody (07/01/2020 4:04 PM EST) [facility] Hepatitis C Ab POSITIVE This specimen is being sent for confirmation by PCR. Reference Range: Negative [facility] 07/01/2020 4:04 PM EST 07/01/2020 4:25 PM EST us Agustín Das MD LAB BLOOD ORDERABLES Final Result [facility] * Cytology (04/02/2017 12:00 AM EST) 04/02/2017 04/06/2017 12: 12 PM EST Narrative [facility]QUEST - 04/21/2017 3:18 PM EST [facility] MR #: [id number] [facility] [address] [place], [place] [address] 1965 (Age: 51) FW Collect Date: 04/02/2017 00:00 Receipt Date: 04/06/2017 12:12 Page 1 DEPARTMENT OF PATHOLOGY AND LABORATORY MEDICINE CYTOPATHOLOGY REPORT Email: [email or web address] ATTENDING MD/Practitioner: Yolanda Quintana Service: OBE Location: [facility] Reported: 04/21/2017 15:18 Collected: 04/02/2017 00:00 INTERPRETATION A. THIN PREP (CERVICAL/VAGINAL): NEGATIVE FOR INTRAEPITHELIAL LESION OR MALIGNANCY. SATISFACTORY FOR EVALUATION; ENDOCERVICAL/ TRANSFORMATION ZONE COMPONENT PRESENT. Slide scanned and imaged by CURRENT ThinPrep Imaging System with manual review of all selected carlin. Please see the ASCCP website (www.asccp.org) for followup recommendations. Correlation with the results of HPV testing is also suggested (please call Microbiology at [phone] for results). Electronically Signed Out By JOSH [...] results is suggested (please call Microbiology at [phone] for results). CLINICAL INFORMATION: Menstrual History: Postmenopausal Date of Last Menstrual Period: unknown Other Clinical Conditions: HPV testing requested. SPECIMEN DESCRIPTION: A: THIN PREP (CERVICAL/VAGINAL) THIN PREP PROCESS CELLULAR ENHANCEMENT ICD: F: A; RT IMAGE 13520 SNOMED CODES: A; [id number] In cases where a pathologist has signed out the report, the service has been rendered in part by a resident. The signing pathologist has performed and is responsible for the reported pathologic evaluation. us Abbey Barone ROLLER ENGRAVER LAB PATHOLOGY ORDERABLES F inal Result SUNQUEST * COLONOSCOPY (03/16/2017) Anatomical Region Laterality Modality Endoscopy Narrative 03/16/2017 Ordered by an unspecified provider. Zzzhistorical Provider GI PROCEDURE ORDERABLE S Final Result * Mammography Breast Screening Tomosynthesis Bilateral (11/20/2016 12:00 PM EDT) Anatomical Region Laterality Modality Breast Bilateral Mammography Impressions 11/20/2016 5:00 PM EDT BI-RADS Assessment Category 2: Benign finding. RECOMMENDATION: Routine screening mammogram in 1 year. Page 1 of 2 Patient Name:Meeta Prescott : 1965 Age: 51 Gender: femaleDate of Service: 11/20/2016 eferring Phy:Riddhi MejiaAccount: [id number] COMMUNICATION: The results and recommendations will be [...] documented in prior ultrasound from outside facility [facility] 09/26/2015. There are no suspicious masses, calcifications, [...] on Nov 20 2016 5:00P Transcribed by: [facility] Nov 20 2016 5:00P Dictated by: ELDER WEISS M.D. on Nov 20 2016 5:00P Patient Name:Meeta Prescott : 1965 Age: 51 Gender: femaleDate of Service: 11/20/2016 eferring Phy:Riddhi MejiaAccount: [id number] Riddhi Mejia , FINAL REPORT PROCEDURE: Tomosynthesis [...] architectural distortion in either breast. Procedure Note Aneudy Howell - 09/08/2020 REQUESTING PHYSICIAN: RIDDHI MEJIA REASON FOR EXAMINATION/PROCEDURE: routine EXAMINATION / PROCEDURE: Screening Mamm w/cad Nov 20 2016 13:57 RADHA BILATERAL SCREENING Nov 20 2016 13:57 [...] on Nov 20 2016 5:00P Transcribed by: MARCY Nov 20 2016 5:00P Dictated by: ELDER WEISS M.D. on Nov 20 2016 5:00P Patient Name:Meeta Prescott : 1965 Age: 51 Gender: femaleDate of Service:11/20/2016 eferring Phy:Riddhi MejiaAccount: [id number] Riddhi Mejia , FINAL REPORT PROCEDURE: Tomosynthesis [...] 1965 Age: 51 Gender: femaleDate of Service:11/20/2016 kashiferrdustin Phy:Riddhi MejiaAccount: [id number] COMMUNICATION: The results and recommendations will be [...] HOWELL M.D. on 11/20/2016 at 17:00:03 us Zzzhistorical Provider IMTomas BI PROCEDURES Joleen l Result from Last 3 Months or Most Recently Relevant to Health Maintenance Insurance [employer] Care Teams Dealer Relationship Manager Relationship Specialty Start Date End Date Sebas Castle APRN [address] [place] [id number] PCP - General 11/08/23
--- OUTSIDE RECORDS SUMMARY | 2024-12-18 13:12 | XMS_ITS | Patient Health Record ---
Author Organization [facility] [place] Address [address] [place] [address] Care Team Providers Care Mobility Architect Manager Name Role Phone JADA SHCNEIDER Primary Care Provider [phone] Reason For Referral No Information Medications Medication SIG (Take, Route, Frequency, Duration) Notes Start Date End Date Status Claritin 10 mg ; Duration: thirty 10/15/201505/03 Active Coumadin 5 mg 1 (one) tablet(s) or oral once a day; Duration: thirty 10/17/2014 Active Coumadin 02/10/2016 Active Aspirin 1 (one) tablet(s) or 10/02/2013 05/03/18 Active Jublia 10% 1 (one) topical once topical once a day; Duration: thirty 11/13/2014 Active SUMAtriptan Succinate 4 mg/0.5 mL 1 (one) subcutaneous subcutaneous once a day; Duration: thirty 09/18/2014 Active diazePAM 2 mg 1 (one) tablet(s) or orally once a day; Duration: one 12/20/2014 Active Folic Acid 1 mg 1 (one) tablet(s) or orally once a day; Duration: one 04/27/2014 Active Coumadin 1 mg 1 (one) tablet(s) or oral once a day 11/20/2014 Active Fluticasone Propionate 50 mcg/inh 1 (one) spray nasal nasal 2 times a day; Duration: thirty 09/18/2014 Active busPIRone HCl 10 mg 1 (one) tablet(s) or orally 3 times a day; Duration: three 11/21/2014 Active Ventolin HFA 1 (one) tablet(s) or 10/02/201305/03 Active Montelukast Sodium 10 mg 1 (one) tablet( s) or oral once a day; Duration: thirty 09/18/2014 Active Lisinopril 30 mg ; Duration: thirty 12/24/201405/1899 Active Problems Problem Type SNOMED Code ICD Code Onset Dates Problem Status W/U Status Risk Notes Problem 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) 10/03/19 14 Active confirmed Audie-Bin Problem Generalized anxiety disorder (90757126) Generalized anxiety disorder (300.02) 10/03/19 14 Active confirmed Audie-Bin Problem Peripheral vascular disease (874101335) Unspecified peripheral vascular disease (443.9) 10/03/19 14 Active confirmed Audie-Bin Problem Essential hypertension (01664912) Unspecified essential hypertension (401.9) 10/03/19 14 Active confirmed Audie-Bin Problem Chronic pancreatitis (467622725) Chronic pancreatitis (577.1) 10/03/19 14 Active confirmed Audie-Bin Problem Diarrhea (05317986) Diarrhea (787.91) 03/12/20 14 Active confirmed Audie-Bin Problem Hematuria (48809394) Hematuria, unspecified (R31.9) 04/27/20 14 Active confirmed Audie-Bin Plan Of Treatment No Information Insurance Providers Payer Name Payer Address Payer Phone Subscriber Number Group Number Insured Name Patient Relationship to Insured Coverage Start Date Coverage End Date [facility] [address] [place] [phone] [id number] Meeta Melendez Self - patient is the insured Medical (General) History Surgical History Surgery Date(Month/Year) ERCP/EGD for pancreatitis evaluation left brachial arterial stent
--- OUTSIDE RECORDS SUMMARY | 2024-12-18 13:12 | XMS_ITS | Encounter Summary ---
Author Organization Healthcare Address [address] [place] [address] Care Team Providers Care Concrete Hopper Operator Name Role Phone Caesar Maxwell MD Primary Care Provider [phone] Sebas Castle APRN Primary Care Provider [phone] Encounter Details Date Type Department Care Team ([facility] st Contact Info) Description 09/23/2023 Orders Only External Location [address] [place] [address] Sebas Castle APRN [address] [place] [address] Social History Tobacco Use Types Packs/Day Years [...] documented as of this encounter Care Teams Concrete Hopper Operator Relationship Specialty Start Date End Date Caesar Maxwell MD [address] [place] [address] PCP - General 09/13/20 11/07/23 Sebas Castle APRN [address] [place], [place] [id number] PCP - General 11/08/23 documented as of this encounter
--- OUTSIDE RECORDS SUMMARY | 2024-12-18 13:12 | XMS_ITS | Clinical Summary ---
Author Organization [facility] Address [address] [place] [address] Care Team Providers Care Income Tax Consultant Name Role Phone Caesar Maxwell MD Primary Care Provider Allergies Active Allergy Reactions Criticality Noted Date Comments Latex Rash,Unknown (See Comments) Low 01/11/20 Shellfish Allergy Anaphylaxis High 11/18/2009 Medications amLODIPine (NORVASC) 5 MG tablet 04/06/2022 Active atorvastatin (LIPITOR) 40 MG tablet 06/01/2022 Active Cholecalciferol (Vitamin D3) 1.25 MG (26394 UT) capsule 2022 Active diazePAM (VALIUM) 5 MG tablet 05/06/2022 Active fluticasone (FLONASE) 50 MCG/ACT nasal spray 03/10/2022 Active metoprolol succinate XL (TOPROL-XL) 25 MG 24 hr tablet 03/10/2022 Active pantoprazole (PROTONIX) 20 MG EC tablet 03/10/2022 Active Xarelto 10 MG tablet 05/19/2022 Active Active Problems No known active problems Social History Tobacco Use Types Packs/Day Years Used Date Smoking Tobacco: Every Day Cigarettes Tobacco Cessation:Ready to Q uit: Not Asked Abuse Screen Answer Date Recorded Unsafe at Home or Work/School Not on file Feels Threatened by Someone? Not on file Does Anyone Keep You from Co ntacting Others or Doint Things Outside the Home? Not on file 02/12/2023 Physical Sign of Abuse Present Not on file 1 Housing Stability Answer Date Recorded Current Living Arrangements Not on file 01/31 Potentially Unsafe Housing Conditions Not on loulou e 02/12/2023 Family and Community Support Answer Cl e Recorded Help with Day-to-Day Activities Not on file 02/12/2023 Lonely or Isolated Not on file 02/12/2023 Employment Answer Date Recorded Do you want help finding or keeping work or a terence b? Not on file 02/12/2023 Disabilities Answer Date Recorded Concentrating, Remembering, or Making Decisions Difficulty Not on file 02/12/2023 Doing Errands Independently Difficulty Not on fi le 02/12/2023 Education Answer Date Recorded Help with school or training? Not on file Preferred Language Not on file 02/12/2023 Comments Unknown Sex and Gender Information Value Date Recorded Sex Assigned at Not on file Legal Sex Female 11:24 AM EST Gender Identity Not on file Sexual Orientation Not on file Last Filed Vital Signs Vital Sign Reading Time Taken Comments Blood Pressure 112/64 06/15/2022 11:52 AM EST Pulse - - Temperature 36.3 C (97.3 F) 06/15/2022 11:52 AM EST Respiratory Rate - - Oxygen Saturation - - Inhaled Oxygen Concentration - - Weight 77.1 kg (170 lb) 06/15/2022 11:52 AM EST Height 170.2 cm (5' 7 ) 06/15/2022 11:52 AM EST Body Mass Index 26.63 06/15/2022 11:52 AM EST Plan of Treatment Health Maintenance Due Date Last Done Comments Annual Gynecologic Pelvic an d Breast Exam 1965 COLOGUARD 2008 COLON CANCER SCREENING 5 YEA R SIGMOIDOSCOPY [address] COLONOGRAPHY 2008 FECAL OCCULT BLOOD TEST 2008 FIT Testing (1 year) 2008 MAMMOGRAM 11/20/2018 11/20/2016 Pneumococcal Vaccine 50+ (2 of 2 - PCV) 02/20/2021 02/21/2020, 02/11/2015 ANNUAL PHYSICAL 06/15/2022 HEPATITIS C SCREENING 06/15/2022 TDAP/TD VACCINES (2 - Td or Tdap) 08/12/2023 014 COVID-19 Vaccine (5 - 2023-2 5 season) 2024 01/29/2022, 04/16/2021, 08/01/2020, Additional history exists INFLUENZA VACCINE 01/31/2025 01/29/2022, , 02/06/2020, Additional history exists COLONOSCOPY 03/16/2027 03/16/2017 COLORECTAL CANCER SCREENING 03/16/2027 ZOSTER VACCINE Completed 04/30/2020, 01/29/2020 Insurance Care Teams Income Tax Consultant Relationship Specialty Start Date End Date Caesar Maxwell [facility] [address] [facility] [address] ATTN: [place] [address] PCP - General Emergency Medicine 05/20/22
--- NOTE | 2024-12-18 13:17 | ED_ITS ---
<Statement entered by Rahul Trivedi DO - 12/19/24 19:41> I was consulted by the TROY, and we discussed the complexity of problems being addressed. I approved the treatment and management plan for this patient's care in the emergency department, thus performing a substantive portion of the medical decision making. Rahul Trivedi DO Discharge Plan Disposition Patient Disposition: Home, Self-Care Condition: Good Prescriptions Prescriptions: No Action azelastine 137 mcg (0.1 %) spray,non-aerosol 137 mcg intranasal BID PRN (Reason: allergy symptoms) Qty: 8.22 2RF Rx Instructions: administer into each nostril cetirizine [All Day Allergy (cetirizine)] 10 mg tablet 10 mg PO DAILY PRN (Reason: allergy symptoms) Qty: 30 3RF aspirin 81 mg tablet,delayed release (DR/EC) See Rx Instructions .ROUTE .COMPLEX Qty: 90 3RF Dose Instruction: TAKE ONE TABLET BY MOUTH EVERY DAY FOR HEART HEALTH Rx Instructions: TAKE ONE TABLET BY MOUTH EVERY DAY FOR HEART HEALTH guaifenesin 600 mg tablet extended release 12hr 600 mg PO BID PRN (Reason: congestion) Qty: 30 0RF erythromycin 5 mg/gram (0.5 %) ointment 1 applic ophthalmic (eye) BID Qty: 3.5 0RF ipratropium-albuterol 0.5 mg-3 mg(2.5 mg base)/3 mL solution for nebulization 3 ml inhalation QID PRN (Reason: shortness of breath or wheezing) 90 Days Qty: 270 3RF montelukast [Singulair] 10 mg tablet 10 mg PO DAILY Qty: 90 2RF albuterol sulfate 90 mcg/actuation HFA aerosol inhaler 1 inh INHALATION QID PRN (Reason: shortness of breath or wheezing) Qty: 8.5 2RF Xarelto 10 mg tablet See Rx Instructions .ROUTE .COMPLEX Qty: 90 3RF Dose Instruction: TAKE ONE TABLET BY MOUTH EVERY DAY Rx Instructions: TAKE ONE TABLET BY MOUTH EVERY DAY atorvastatin 40 mg tablet See Rx Instructions .ROUTE .COMPLEX Qty: 90 3RF Dose Instruction: TAKE 1 TABLET BY MOUTH ONCE DAILY FOR CHOLESTEROL Rx Instructions: TAKE 1 TABLET BY MOUTH ONCE DAILY FOR CHOLESTEROL amlodipine 2.5 mg tablet 2.5 mg PO DAILY Qty: 30 11RF pantoprazole 20 mg tablet,delayed release (DR/EC) See Rx Instructions .ROUTE .COMPLEX Qty: 90 3RF Dose Instruction: TAKE ONE TABLET BY MOUTH EVERY DAY FOR ACID REFLUX Rx Instructions: TAKE ONE TABLET BY MOUTH EVERY DAY FOR ACID REFLUX mecobalamin (vitamin B12) 1,000 mcg tablet,chewable 1,000 mcg PO DAILY Qty: 90 0RF metoprolol succinate 25 mg tablet extended release 24 hr See Rx Instructions .ROUTE .COMPLEX Qty: 90 0RF Dose Instruction: TAKE 1 TABLET BY MOUTH ONCE DAILY FOR BLOOD PRESSURE Rx Instructions: TAKE 1 TABLET BY MOUTH ONCE DAILY FOR BLOOD PRESSURE ondansetron 4 mg Tablet,Disintegrating 4 mg PO Q8H PRN (Reason: Nausea) Qty: 12 0RF Referrals Follow up/Referrals: Nik Johnson MD [Primary Care Provider, Family Practice] - See instructions Jorge White DO [Staff Physician, Orthopedics] - See instructions Activity Restrictions/Add. Instructions Additional Instructions/Restrictions: Please return to the emergency department with any worsening signs or symptoms, please follow-up with the orthopedic physician in the upcoming days, follow-up with PCP in the upcoming days/weeks, I recommend utilizing ibuprofen Tylenol, good insoles and supportive shoes for symptomatic relief. Clinical Impressions Clinical Impression: Other sprain of left foot, initial encounter Instructions Patient Instructions: DI for Foot Sprain Print Language Print Language: Divehi Discharge ED Provider: Rahul Trivedi Adult HPI General Chief complaint: Extremity Injury, Lower Stated complaint: left foot pain Time Seen by Provider: 12/18/24 13:04 Mode of Arrival: Wheelchair Source of Information: Patient Description of Symptoms (Recalled from ER Triage Doc. by RN): Patient states she woke up this morning with pain in outer part of left foot. Denies any injury, has not taken anything for the pain. History of Present Illness HPI narrative: 59-year-old female presents to the emergency department with a less than 24-hour history of left lateral foot pain, patient denies any trauma or injury per history, patient states I just woke up with it , she admits to subjective numbn ess and tingling that has been somewhat chronic for her, does have data deficient history of what sounds like polyneuropathy, with numbness and tingling of both feet at times, denies any fever chills chest pain shortness of breath, no abdominal pain no nausea no vomiting no constipation no diarrhea no urinary bladder or bowel dysfunction, no radicular symptomatology, no lower back pain, patient has been able to ambulate on the affected extremity, but is somewhat pain limiting, initial triage vitals are unremarkable, patient's current everyday smoker, occasionally does alcohol, denies any other drug use, other past medical history is consistent with COPD, chronic pancreatitis, YING, MDD, carotid artery stenosis, hyperlipidemia, GERD, hypertension, history of hepatitis C, patient is on anticoagulation therapy with Xarelto, has been taking medication as prescribed. There is no pain further up the leg, only located in her lateral foot/sole/heel area. Please note that above description of symptoms, in this electronic medical record under categorization of recalled from ER triage doctor by RN are reflective of an initial nursing assessment, however, is not reflective of my full history and physical exam that was personally taken and clarified. Consequentially, this preceding description of symptoms, which may include the patient's categorized chief complaint in the EMR, do not reflect my personal clinical impression, and the ultimate description of history of present illness and patient stated complaints should be deferred to this section of the note. Unless stated otherwise or congruent with this section of the note, additional signs, symptoms, or incongruence should be interpreted as inaccurate with my clinical impression. Onset (ago): hour(s) Related Data Previous Rx's ?Medication ?Instructions ?Recorded ondansetron 4 mg disintegrating 4 mg PO Q8H PRN Nausea #12 tabs 09/18/23 tablet atorvastatin 40 mg tablet See Rx Instructions .Route 0 01/26/24 .COMPLEX #90 ea rivaroxaban 10 mg tablet (Xarelto) See Rx Instructions .Route 01/26/24 .COMPLEX #90 tabs amlodipine 2.5 mg tablet 2.5 mg PO DAILY #30 tabs albuterol sulfate 90 mcg/actuation 1 inh inhalation QI D PRN shortness 06/08/24 aerosol inhaler of breath or wheezing #8.5 g carri ipratropium 0.5 mg-albuterol 3 mg 3 ml inhalation QID PRN shortness 06/08/24 (2.5 mg base)/3 mL nebulization of breath or wheezing 90 days #270 soln mL montelukast 10 mg tablet 10 mg PO DAILY #90 tabs 10/25 (Singulair) pantoprazole 20 mg tablet,delayed See Rx Instructions .Route 08/18/24 release .COMPLEX #90 tabs mecobalamin (vitamin B12) 1,000 1,000 mcg PO DAILY #90 tabs 09/04/24 mcg chewable tablet aspirin 81 mg tablet,delayed See Rx Instructions .Rout e 09/07/24 release .COMPLEX #90 tabs azelastine 137 mcg (0.1 %) nasal 137 mcg (0.137 mL) in tranasal BID 09/07/24 spray PRN allergy symptoms #8.22 m L cetirizine 10 mg tablet (All Day 10 mg PO DAILY PRN al lergy 09/07/24 Allergy (cetirizine)) symptoms #30 tabs guaifenesin 600 mg tablet, 600 mg PO BID PRN congestio n #30 09/07/24 extended release 12 hr tabs metoprolol succinate 25 mg See Rx Instructions .Route 09/22/24 tablet,extended release 24 hr .COMPLEX #90 tabs erythromycin 5 mg/gram (0.5 %) eye 1 applic ophthalmic (eye) BID #3.5 11/29/24 ointment grams Allergies Allergy/AdvReac Type Severity Reaction Status Date / Time latex Allergy Mild Rash Verified 11/29/24 13:49 shellfish derived AdvReac Mild Verified 11/29/24 13:49 PFSH PFS Disclaimer: The information contained in this section may have been updated after the patient was seen, as this information can be updated by other users. Medical History Vitamin B12 deficiency Vitamin D deficiency Bronchitis Skin lesions History of smoking 30 or more pack years LGSIL on Pap smear of cervix LGSIL (low grade squamous intraepithelial dysplasia) Diaphragm dysfunction Restrictive lung disease COPD mixed type Nicotine dependence Postmenopausal atrophic vaginitis History of endometriosis Pancreatitis Dizziness Edema History of left common carotid artery stent placement Hx of deep venous thrombosis Carotid artery stenosis HLD (hyperlipidemia) Gastroesophageal reflux disease Family history of heart disease Tobacco dependence syndrome Dyspnea COPD (chronic obstructive pulmonary disease) Coronary artery calcification seen on CT scan Surgical History H/O tubal ligation History of foot surgery right History of bunionectomy History of delivery Family History Family/Other Cancer great aunt-breast Mother Cancer lung and cervical Other Coronary artery disease Diabetes Hypertension Stroke Social History Smoking Status: Current every day smoker tobacco type: cigarettes packs per day: 1 smoking status stop date: September 2023 second hand exposure: No alcohol intake: current alcohol intake frequency: a few times a week substance use type: marijuana current occupational status: disabled Travel in the last 8 weeks?: None household members: spouse housing: house current occupational exposures/hazards: No caffeine: Yes Have you lived/traveled outside US in past 30 days?: No Contact w/someone who lives/traveled outside US past 30 days?: No Exposure to someone with infectious disease in past 14 days?: No Do you have a fever (greater than 100.4 F or 38 C)?: No Have you tested positive for COVID-19?: No Exposed to someone with COVID-19 in past 14 days?: No Do you have a sore throat?: No Do you have a cough?: No Do you have any weakness?: No Do you have any diarrhea?: No Are you experiencing any unusual bleeding?: No Do you have any muscle aches/pain?: No Do you have any abdominal pain?: No Are you experiencing loss of taste or smell?: No Other Medical History Have you received the Flu Vaccine for this season: Yes Have you received the Pneumonia Vaccine: Yes ROS Obtained: Yes All systems reviewed & no additional complaints except as documented Physical Exam General General appearance: alert and in no apparent distress Head Head exam: atraumatic and normocephalic Eye Eye exam: Present PERRL and EOMI ENT ENT exam: Present mucous membranes moist Neck Neck exam: Present normal inspection Chest Chest inspection: Present normal inspection and symmetric chest wall rise Respiratory Respiratory exam: Present normal lung sounds bilaterally; Absent respiratory distress Cardiovascular Cardiovascular exam: Present regular rate and normal rhythm Abdominal Exam Abdominal exam: Present soft; Absent tenderness, guarding, rebound or rigidity Extremities Exam Extremities exam: Present normal inspection, tenderness and other (There is mild pain palpation to the lateral aspect of the left foot, no obvious dislocation or deformity, minimal soft tissue swelling, patient moves extremity to command, otherwise neurovascular intact.); Absent full ROM, joint swelling or calf tenderness Neurological Exam Neurological exam: Present alert and oriented X3 Psychiatric Psychiatric exam: Present normal affect Skin Skin exam: Present warm and dry Medical Decision Making Medical Records Medical records reviewed: Yes I reviewed the patient's medical records. Screening: Per USPSTF and CDC recommendations, given the prevalence of disease in our region, it is our hospital?s policy to screen for HIV and viral Hepatitis for all patients aged 18 and over and those with ongoing risk factors. Tani Inquiry Pt receiving controlled substance: No Tani was queried for this patient: No Vital Signs: 12/18/24 13:09 Temperature 98.4 F Temperature Source Oral Pulse Rate [Right Brachial] 101 H Respiratory Rate 16 Blood Pressure [Right Arm] 144/98 H Blood Pressure Mean [Right Arm] 113 Blood Pressure Source [Right Arm] Automatic Cuff Blood Pressure Position [Right Arm] Sitting 02 Sat by Pulse Oximetry 96 Oxygen Delivery Method Room Air Orders (Tests/Meds): ED MEDICATIONS Discontinued Medications Generic Name Dose Route Start Last Admin Trade Name Freq PRN Reason Stop Dose Admin Acetaminophen 500 mg 12/18/24 13:10 12/18/24 13:50 Acetaminophen 500mg Tab PO 12/18/24 13:11 500 mg ONCE ONE Administration Ibuprofen 400 mg 12/18/24 13:10 12/18/24 13:50 Ibuprofen 400 Mg Tablet PO 12/18/24 13:11 400 mg ONCE ONE Administration ORDERS Category Date Time Status XR ankle LT min 3V Stat Exams 12/18/24 13:09 Completed XR foot LT min 3V Stat Exams 12/18/24 13:09 Completed Medical Decision Narrative: 59-year-old female presents the emergency department with left foot pain, no injury, differential diagnose include but not limited to, ankle sprain/strain, foot sprain/strain, Key fracture, pseudo Key fracture, stress fracture, plantar fasciitis among others. I discussed this patient's case with attending physician Dr. Trivedi he saw and examined the patient as well. Obtain x-rays of the left foot, left ankle, will give 400 mg Motrin and 500 mg Tylenol p.o. for pain I reviewed the foot and ankle x-ray of the left lower extremity, along with the corresponding radiologic reports, there is no acute bony abnormality. I discussed the results with the patient at the bedside, x-rays are negative, patient has no other acute signs or symptoms, no trauma or injury per history I do believe this is more of a foot sprain/strain versus plantar fasciitis, recommend ibuprofen ice Tylenol, follow-up with orthopedic physician, and other supportive care, patient was given strict ED return precautions. Patient voiced understanding and agreement Contreet plan/discharge plan. Of note, DVT doctor be less likely to the patient currently on anticoagulant therapy taking as prescribed. Critical Care Critical Care Time Critical Care Time: No
[2024-12-18] MEDS: ACETAMINOPHEN 500MG TAB 500 MG PO (13:50)
[2024-12-18] MEDS: IBUPROFEN 400 MG TABLET PO (13:50)
[2024-12-18 14:58] VITALS: BP 145/74; PULSE 85; RESP 18; TEMP 37.1; O2SAT 99
== END 2024-12-18 14:59 | disposition home or self-care (01) ==
PROVIDERS: Emergency Provider Student in an Organized Health Care Education/Training Program; PCP Family Medicine
DX: S93.692A Other sprain of left foot, initial encounter (principal); X58.XXXA Exposure to other specified factors, initial encounter
CPT/HCPCS: 73610; 73630; 99282; 99283

== ENCOUNTER 2025-03-26 15:34 | Emergency (ER) | payer OTHER, SELFPAY ==
[2025-03-26 15:48] VITALS: BP 155/95; PULSE 109; RESP 22; TEMP 36.6; O2SAT 98; BMI 25.8
--- OUTSIDE RECORDS SUMMARY | 2025-03-26 15:51 | XMS_ITS | Clinical Summary ---
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 Resolved Problems Problem Noted Date Diagnosed Date Resolved Date Second hand smoke exposure 11/08/2023 0 01/21/2025 Immunizations Immunization Administration Dates Next Due Influenza, [...] Date Smoking Tobacco: Some Days Cigarettes 0.5 46.9 Started: 1978 Passive Smoke Exposure: Current Smokeless [...] drink first t demetri in the morning (EYE-TYPE CASTER) to steady your nerves or to get [...] 04/06/2024 1:09 PM EST Plan of Treatment Upcoming Encounters Date Type Department Care Team (Late st Contact Info) Description 05/09/2025 3:00 PM EST Appointment [facility] [address] [place] [address] 05/09/2025 4:20 PM EST Office Visit [facility] [address] [place] [address] Kg Schmitt MD [address] [facility] [address] [place] [address] Health Maintenance Due Date Last Done Comments [facility]-/Child/Adol SDOH Screenings 1965 [facility]- SDOH Screenings 1981 [facility]-Adult SDOH Screenings 1981 CT Colonography 2008 FIT-DNA 2008 FIT 2008 FOBT 2008 Sigmoidoscopy 2008 Lung Cancer Screening Shared Decision Making 2013 [facility]-Breast Cancer Screening 11/20/2018 11/20/2016, 0 11/20/2016 [facility]-Pap Smear 04/02/2020 04/02/2017, 08/2009, 10/24/2003, Additional history exists [facility]-Pneumococcal Vaccine: 50+ Years (2 of 2 - PCV) 02/20/2021 02/21/2020, 02/11/2015 [facility]-Cervical Cancer Screening 04/02/2022 [facility]-HPV/Cotest 04/02/2022 04/02/2017, 1205/2016, 07/04/2009, Additional history exists [facility]-Depression Screening 07/21/2022 07/21/2021 [facility]-DTaP,Tdap,and Td Vaccines (2 - Td or Tdap) 08/12/2023 08/11/2013 [facility]-Lung Cancer Screening 11/07/20242023, 07/01/2020, 05/25/2018, Additional history exists [facility]-VGIUP-23 Vaccine ( season) 2025 03/09/2023, 01/29/2022, 04/16/2021, Additional history exists [facility]-Influenza Vaccine (#1) 01/01/202503/09, [...] Reactive Non Reactive 10/03/2023 12:38 PM EDT [facility] Comment:Screening for HIV 1 & 2 antibodies, and P24 antigen is NONREACTIVE. No confirmatory testing is required. Blood Venous blood specimen / Unknown Venipuncture / Unknown 10/03/2023 11:47 AM EDT 10/03/2023 11:57 AM EDT Javan Mandujano MD LAB BLOOD ORDERABLES Final Res ult Performing Organization Address City/[facility]/ZIP Co de Phone Number [facility] [address] [place] [address] * [place] Hepatitis C Antibody (07/01/2020 4:04 PM EST) [place] Hepatitis C Ab POSITIVE This specimen is being sent for confirmation by PCR. Reference Range: Negative [facility] 07/01/2020 4:04 PM EST 07/01/2020 4:25 PM EST Agustín Das MD LAB BLOOD ORDERABLES Final Result Performing Organization Address City/[facility] Co de Phone Number [facility] * Cytology (04/02/2017 12:00 AM EST) 04/02/2017 04/06/2017 12: 12 PM EST Narrative [facility] - 04/21/2017 3:18 PM EST [facility] MR #: [id number] [facility] [address] [place], [place] [address] 1965 (Age: 51) FW Collect Date: 04/02/2017 00:00 Receipt Date: 04/06/2017 12:12 Page 1 DEPARTMENT OF PATHOLOGY AND LABORATORY MEDICINE CYTOPATHOLOGY REPORT Email: [phone] ATTENDING MD/Practitioner: Dannielle Quintana Service: [facility]BE Location: [facility] Reported: 04/21/2017 15:18 Collected: 04/02/2017 00:00 INTERPRETATION A. THIN PREP (CERVICAL/VAGINAL): NEGATIVE FOR INTRAEPITHELIAL LESION OR MALIGNANCY. SATISFACTORY FOR EVALUATION; ENDOCERVICAL/ TRANSFORMATION ZONE COMPONENT PRESENT. Slide scanned and imaged by [employer] ThinPrep Imaging System with manual review of all selected carlin. Please see the ASCCP website (www.asccp.org) for followup recommendations. Correlation with the results of HPV testing is also suggested (please call Microbiology at [phone] for results). Electronically Signed Out By JOSH Combs ([facility]) JOSH Combs ([facility]) Cervical cytology is a screening test primarily [...] results is suggested (please call Microbiology at [phone] for results). CLINICAL INFORMATION: Menstrual History: Postmenopausal Date of Last Menstrual Period: unknown Other Clinical Conditions: HPV testing requested. SPECIMEN DESCRIPTION: A: THIN PREP (CERVICAL/VAGINAL) THIN PREP PROCESS CELLULAR ENHANCEMENT ICD: F: A; RT IMAGE [id number] SNOMED CODES: A; [id number] In cases where a pathologist has signed out the report, the service has been rendered in part by a resident. The signing pathologist has performed and is responsible for the reported pathologic evaluation. Abbey Barone APRN LAB PATHOLOGY ORDERABLES F inal Result [facility] * COLONOSCOPY (03/16/2017) Anatomical Region Laterality Modality Endoscopy Narrative 03/16/2017 Ordered by an unspecified provider. Historical Provider GI PROCEDURE ORDERABLES Joleen l Result * Mammography Breast Screening Tomosynthesis Bilateral (11/20/2016 12:00 PM EDT) Anatomical Region Laterality Modality Breast Bilateral Mammography Impressions 11/20/2016 5:00 PM EDT BI-RADS Assessment Category 2: Benign finding. RECOMMENDATION: Routine screening mammogram in 1 year. Page 1 of 2 Patient Name:Meeta Prescott : 1965 Age: 51 Gender: femaleDate of Service: 11/20/2016 eferring Phy:Riddhi MejiaAccount: [id number] COMMUNICATION: The results and recommendations will be [...] femaleDate of Service: 11/20/2016 eferring Phy:Riddhi MejiaAccount: [id number] Riddhi Mejia , FINAL REPORT PROCEDURE: Tomosynthesis [...] Gender: femaleDate of Service:11/20/2016 eferring Phy:Riddhi MejiaAccount: [id number] Riddhi Mejia , FINAL REPORT PROCEDURE: Tomosynthesis [...] Gender: femaleDate of Service:11/20/2016 eferring Phy:Riddhi MejiaAccount: [id number] COMMUNICATION: The results and recommendations will be [...] on 11/20/2016 at 17:00:03 us Historical Provider IMG BI PROCEDURES Final Resu lt from Last 3 Months or Most Recently Relevant to Health Maintenance Insurance MEDICAID Care Teams Habilitation Worker Relationship Specialty Start Date End Date Sebas Castle APRN [address] [place] [address] KENAN Raya [id number] PCP - General 11/08/23
--- OUTSIDE RECORDS SUMMARY | 2025-03-26 15:51 | XMS_ITS | Clinical Summary ---
Author Organization [facility] Address [address] [place] [address] Care Team Providers Care Chemical Process Project Engineer Name Role Phone Caesar Maxwell MD Primary Care Provider Allergies Active Allergy Reactions Criticality Noted Date Comments Latex Rash,Unknown (See Comments) Low 01/11/20 Shellfish Allergy Anaphylaxis High 11/18/2009 Medications amLODIPine (NORVASC) 5 MG tablet 04/06/2022 Active atorvastatin (LIPITOR) 40 MG tablet 06/01/2022 Active Cholecalciferol (Vitamin D3) 1.25 MG (77694 UT) capsule 2022 Active diazePAM (VALIUM) 5 [...] (2 - Td or Tdap) 08/12/2023 014 INFLUENZA VACCINE 12/01/2024 01/29/2022, , 02/06/2020, Additional history exists COLONOSCOPY 03/16/2027 03/16/2017 COLORECTAL CANCER SCREENING 03/16/2027 ZOSTER VACCINE Completed 04/30/2020, 01/29/2020 Insurance Care Teams Chemical Process Project Engineer Relationship Specialty Start Date End Date Caesar Maxwell MD [address] [facility] [address] ATTN: [place] [address] PCP - General Emergency Medicine 05/20/22
--- NOTE | 2025-03-26 15:52 | CT_ITS ---
PROCEDURE INFORMATION: Exam: CT Head Without Contrast Exam date and time: 03/26/2025 4:24 PM Age: 59 years old Clinical indication: Pain; Headache; Additional info: Fall TECHNIQUE: Imaging protocol: Computed tomography of the head without contrast. Radiation optimization: All CT scans at this facility use at least one of these dose optimization techniques: automated exposure control; mA and/or kV adjustment per patient size (includes targeted exams where dose is matched to clinical indication); or iterative reconstruction. COMPARISON: CT ANGIO HEAD 05/28/2020 4:51 PM FINDINGS: Brain: No acute intracranial hemorrhage, midline shift or significant intracranial mass effect. No cerebral edema. Cerebral ventricles: No hydrocephalus. Paranasal sinuses: Visualized sinuses are unremarkable. No fluid levels. Mastoid air cells: Visualized mastoid air cells are well aerated. Bones: Unremarkable. No acute fracture. Soft tissues: Unremarkable. IMPRESSION: No acute intracranial abnormality.
--- OUTSIDE RECORDS SUMMARY | 2025-03-26 15:52 | XMS_ITS | Encounter Summary ---
Author Organization Healthcare Address [address] [place] [address] Care Team Providers Care Materials Manager Name Role Phone Caesar Maxwell MD Primary Care Provider [phone] Sebas Castle APRN Primary Care Provider [phone] Encounter Details Date Type Department Care Team (Late Contact Info) Description 09/23/2023 Orders Only External Location [address] [place] [address] Sebas Castle APRN [address] [place] [address] Social History Tobacco Use Types Packs/Day Years [...] as of this encounter Plan of Treatment Upcoming Encounters Date Type Department Care Team (Late Contact Info) Description 05/09/2025 3:00 PM EST Appointment [facility] [address] [place] [address] 05/09/2025 4:20 PM EST Office Visit [facility] [address] [place] [address] Kg Schmitt MD [address] [facility] [address] [place] [address] documented as of this encounter Procedures Procedure Name Priority Date/Time Associated Diagnosis Comments XR THORACIC OUTSIDE IMAGES 09/23/2023 10:50 AM EDT documented in this encounter Results * XR THORACIC OUTSIDE IMAGES (09/23/2023 10:50 AM EDT) Anatomical Region Laterality Modality Radiographic Renata ging 09/23/2023 10:5 0 AM EDT Sebas Castle LEAD PERSON IMG XR PROCEDURES Final Res ult documented in this encounter Visit Diagnoses Not on filedocumented in this encounter Additional Health Concerns Assessment Noted Time A Body Mass Index follow-up plan has been documented for the patient 07/20/2022 10:19 AM EDT documented as of this encounter Care Teams Materials Manager Relationship Specialty Start Date End Date Caesar Maxwell MD [address] [place] [address] PCP - General 09/13/20 11/07/23 Sebas Castle APRN [address] [place] [address] PCP - General 11/08/23 documented as of this encounter
--- NOTE | 2025-03-26 15:54 | CT_ITS ---
PROCEDURE INFORMATION: Exam: CT Abdomen And Pelvis Without Contrast Exam date and time: 03/26/2025 4:26 PM Age: 59 years old Clinical indication: Bloating TECHNIQUE: Imaging protocol: Computed tomography of the abdomen and pelvis without contrast. Radiation optimization: All CT scans at this facility use at least one of these dose optimization techniques: automated exposure control; mA and/or kV adjustment per patient size (includes targeted exams where dose is matched to clinical indication); or iterative reconstruction. COMPARISON: CT ABDOMEN PELVIS W CON 01/12/2023 10:37 AM FINDINGS: Lungs: Previous left lung base lesion appears stable to mildly decreased in size from the comparison, measuring 1.7 x 2.6 cm craniocaudal, previously 2.0 x 3.1 cm craniocaudal. Diaphragm: Mild irregular thickening of the left hemidiaphragm redemonstrated. Liver: Normal. No mass. Gallbladder and biliary ducts: Normal. No calcified stones. No ductal dilation. Pancreas: The tail of the pancreas is somewhat indistinguishable from the splenic hilum. No focal pancreatic lesion, ductal dilatation, or acute inflammation. Spleen: Spleen is unremarkable. Adrenal glands: Normal. No mass. Kidneys and ureters: No renal or ureteral calculi or obstruction bilaterally. Stomach and bowel: Mild thickening of the gastric mucosa noted. Nonspecific. No distinct perigastric stranding or hyperemia. No bowel obstruction or distinct evidence of acute inflammation. Moderate fibrofatty submucosal infiltration in the cecum and ascending colon noted suggestive of prior colitis. Severe sigmoid colonic diverticulosis without acute diverticulitis. Appendix: No evidence of appendicitis. Intraperitoneal space: Unremarkable. No free air. No significant fluid collection. Vasculature: Moderate to severe atherosclerosis of the abdominal aorta and branches. Lymph nodes: Several shotty subcentimeter retroperitoneal lymph nodes are present, likely reactive. Urinary bladder: Unremarkable as visualized. Reproductive: Unremarkable as visualized. Bones/joints: Unremarkable. No acute fracture. Soft tissues: No acute soft tissue abnormality. IMPRESSION: 1. No bowel obstruction or distinct evidence of acute inflammation. 2. Severe sigmoid colonic diverticulosis without acute diverticulitis.
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
--- NOTE | 2025-03-26 16:05 | ECG_ITS ---
APPROVED REPORT Exam: Resting ECG HR:92 bpm ECG Measurements Heart Rate 92 AXES IA 150 P 66 QRSd 78 QRS 61 QT 339 T 63 QTc 389 Conclusion SINUS RHYTHM NORMAL ECG Electronically signed by : EVIN BAKER, 03/29/2025 13:59:39
[2025-03-26 16:11] LABS: Hematocrit 42.5 % (37.0-47.0); Hemoglobin 14.1 g/dL (12.2-16.2); Immature Granulocytes % 0.3 %; Mean Corpuscular HGB Conc 33.2 g/dL (31.8-35.4); Mean Corpuscular Hemoglobin 32.9 pg (27.0-31.2); Mean Corpuscular Volume 99.1 fl (81-99); Nucleated Red Blood Cells % 0 %; Platelet Count 356 K/mm3 (142-424); Red Blood Count 4.29 M/mm3 (4.20-5.40); Red Cell Distribution Width-SD 50.7 fL; White Blood Count 10.5 K/mm3 (4.8-10.8)
[2025-03-26] MEDS: 0.9 % SODIUM CHLORIDE 1000ML 1,000 ML 999 ML IV (16:12)
[2025-03-26] MEDS: ACETAMINOPHEN 1,000MG/100ML VIAL 1000 MG IV (16:13)
[2025-03-26] MEDS: MORPHINE 4MG/ML SYRINGE 4 MG IV (16:13)
[2025-03-26] MEDS: ONDANSETRON 4MG/2ML VIAL 4 MG IV (16:15)
--- NOTE | 2025-03-26 16:15 | PC.NURSE ---
RN with patient admin. meds. Patient needs nothing
[2025-03-26] MEDS: FAMOTIDINE 20MG/2ML VIAL 20 MG IV (16:16)
[2025-03-26] MEDS: SODIUM CHLORIDE 0.9% 10ML VIAL 8 ML IV (16:16)
[2025-03-26 16:18] LABS: Albumin Level 4.6 g/dl (3.5-5.0); Chloride 107 mmol/L (98-107); Potassium 3.6 mmoL/L (3.5-5.1); Sodium 146 mmol/L (136-145)
[2025-03-26 16:21] LABS: Activated Partial Thrombo Time 31.4 seconds (22.8-30.6); Alanine Aminotransferase 62 U/L (12-78); Albumin/Globulin Ratio 1.3 (1.1-1.8); Alkaline Phosphatase 80 U/L (38-126); Anion Gap 18.6 mEq/L (5-15); Aspartate Amino Transferase 78 U/L (14-36); Bilirubin,Total 0.4 mg/dl (0.2-1.3); Blood Urea Nitrogen 17 mg/dl (7-17); Carbon Dioxide 24 mmol/L (22.0-30.0); Creatinine Clearance Estimated 70 mL/min (50-200); Creatinine,Serum 1.00 mg/dl (0.52-1.04); Estimated Glomerular Filt Rate 56 ml/min (>60); GFR (African American) 68 ML/MIN (>60); Globulin 3.6 g/dL (1.3-3.2); Total Protein,Serum 8.2 g/dl (6.3-8.2)
[2025-03-26 16:22] LABS: Calcium 9.0 mg/dl (8.4-10.2); Glucose 115 mg/dl (74-100)
[2025-03-26 16:24] LABS: INR 1.33 (0.9-1.1); Prothrombin Time 14.5 seconds (10.1-12.5)
[2025-03-26 16:33] LABS: Troponin I < 0.01 ng/ml (0.00-0.034)
[2025-03-26 16:42] LABS: Lipase 273 U/L (23-300); Magnesium 1.2 mg/dl (1.6-2.3)
[2025-03-26 16:59] VITALS: BP 149/88; PULSE 97; RESP 24; O2SAT 98
[2025-03-26 17:00] VITALS: BP 159/88; PULSE 85; RESP 12; O2SAT 98
[2025-03-26 17:02] LABS: Coronavirus 19, PCR Not Detected (NotDetected); Influenza A, PCR Not Detected (NotDetected); Influenza B, PCR Not Detected (NotDetected)
[2025-03-26] MEDS: MAGNESIUM SULFATE IN WATER 2 GM/50 ML PIGGYBACK IV (17:02)
[2025-03-26 17:55] LABS: Microscopic, Urine URINE MICROSCOPIC (MICROSCOPIC)
[2025-03-26] MEDS: PROCHLORPERAZINE 10MG/2ML VIAL 5 MG IV (17:58)
[2025-03-26 18:02] VITALS: BP 142/90; PULSE 95; RESP 18; O2SAT 96
[2025-03-26 18:02] LABS: Bilirubin,Urine Negative (Negative); Color,Urine YELLOW (Yellow); Glucose,Urine (UA) Negative (Negative); Ketones,Urine Negative (Negative); Leukocyte Esterase,Urine Negative (Negative); PH,Urine 6.0 (5.0-8.5); Protein,Urine TRACE (Negative); Specific Gravity, Urine >= 1.030 (1.005-1.030); Urobilinogen,Urine 0.2 EU/dl (0.2)
[2025-03-26 18:10] VITALS: BP 155/92; PULSE 94; RESP 18; TEMP 36.7; O2SAT 98
[2025-03-26 18:28] LABS: Bacteria,Urine 2+ /lpf; Mucus,Urine 4+ /lpf
--- NOTE | 2025-03-29 09:34 | PC.NURSE ---
Prelim urine culture discussed with . I called the pt to inquire how she was feeling. She states she is still having N/V without the presence of blood. I inquired about urinary symptoms. She c/o urinary frequency, mild lower back pain and urgency. is going to call her in an antibiotic. I let her know and she verbalized her understanding.
--- NOTE | 2025-03-29 09:36 | PC.NURSE ---
Final urine culture populated. The antibiotic sent per was acceptable.
== END 2025-03-26 18:19 | disposition home or self-care (01) ==
PROVIDERS: Nurse Practitioner; Emergency Provider Student in an Organized Health Care Education/Training Program; PCP Family Medicine
DX: N39.0 Urinary tract infection, site not specified (principal); K92.0 Hematemesis; R51.9 Headache, unspecified; F17.210 Nicotine dependence, cigarettes, uncomplicated; J44.9 Chronic obstructive pulmonary disease, unspecified; I10 Essential (primary) hypertension; Z86.79 Personal history of other diseases of the circulatory system; Z95.5 Presence of coronary angioplasty implant and graft; B96.20 Unspecified Escherichia coli [E. coli] as the cause of diseases classified elsewhere
CPT/HCPCS: 70450; 74176; 80053; 81001; 83690; 83735; 84484; 85025; 85610; 85730; 87086; 87088; 87186; 87389; 87636; 93005; 96361; 96365; 96375; 99285; J0131; J0780; J1308; J2270; J2405; J3475; J7030

== ENCOUNTER 2025-04-17 10:45 | Outpatient (CLI) | payer OTHER, SELFPAY ==
--- OUTSIDE RECORDS SUMMARY | 2025-04-13 12:15 | XMS_ITS | Encounter Summary ---
Author Organization Healthcare Address [address] [id number] Care Team Providers Care Furnace Operator And Tender Name Role Phone Sebas Castle APRN Primary Care Provider [phone] Reason for Referral * Consultation (Routine) - Authorized Specialty Diagnoses / Procedures Referred By Contac t Referred To Contact Diagnoses Hematemesis with nausea Dysphagia, unspecified type Odynophagia Unintentional weight loss History of pancreatitis Colon cancer screening Diarrhea, unspecified type History of hepatitis C Generalized abdominal pain Sarahi Lima PA [address] [address] Phone: tel: fax: Referral ID Status Reason Start Date Expiration Date V isits Requested Visits Authorized [id number] Authorized 04/13/2025 10/13/2026 1 1 * Medications - Authorized Specialty Diagnoses / Procedures Referred By Contac t Referred To Contact Sarahi Lima PA [address] [address] Phone: tel: fax: Referral ID Status Reason Start Date Expiration Date V isits Requested Visits Authorized [id number] Authorized 04/13/2025 04/12/2026 1 1 * Genetic Testing (Routine) - Authorized Specialty Diagnoses / Procedures Referred By Contac t Referred To Contact Lab Diagnoses Diarrhea, unspecified type Procedures IgA, Plasma Sarahi Lima PA [address] [address] Phone: tel: fax: Referral ID Status Reason Start Date Expiration Date V isits Requested Visits Authorized [id number] Authorized 04/13/2025 10/13/2026 1 1 * Imaging (Routine) - Pending Review Specialty Diagnoses / Procedures Referred By Contac t Referred To Contact Gastroenterology Diagnoses Unintentional weight loss Colon cancer screening Diarrhea, unspecified type Procedures Colonoscopy Sarahi Lima PA [address] [address] Phone: tel: fax: Referral ID Status Reason Start Date Expiration Date Visits Requested Visits Authorized [id number] Pending Review Specialty Services Required 10/13/2026 1 1 * Imaging (Routine) - Pending Review Specialty Diagnoses / Procedures Referred By Sammie t Referred To Contact Gastroenterology Diagnoses Hematemesis with nausea Dysphagia, unspecified type Unintentional weight loss Procedures EGD Sarahi Lima PA [address] [address] Phone: tel: fax: Referral ID Status Reason Start Date Expiration Date Visits Requested Visits Authorized [id number] Pending Review Specialty Services Required 10/13/2026 1 1 Reason for Visit * Consultation (Urgent) - Closed Specialty Diagnoses / Procedures Referred By Contac t Referred To Contact Gastroenterology Diagnoses Hematemesis with nausea Yani Cee, VP [employer] [address] [place] [address] Phone: tel: fax: Referral ID Status Reason Start Date Expiration Date V isits Requested Visits Authorized [id number] Closed Specialty Services Required 04/04/2025 10/04/2026 1 1 Encounter Details Date Type Department Care Team (Late st Contact Info) Description 04/13/2025 12:15 PM EST Office [facility] [address] [place] [address] Sarahi Lima PA [address] [place] [address] Hematemesis with nausea (Primary Dx); Dysphagia, unspecified type; Odynophagia; Unintentional weight loss; History of pancreatitis; Colon cancer screening; Diarrhea, unspecified type; History of hepatitis C; Generalized abdominal pain Social History Tobacco Use Types Packs/Day Years Used Date Smoking Tobacco: Some Days Cigarettes 0.5 47 Started: 1980 Passive Smoke Exposure: Current Smokeless Tobacco: Never Comments:Patient is down to about 5 or [...] drink first 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 1 10/03/2023 CAGE Questionnaire Score 2 024 Comments Unknown Sex and Gender Information Value Date Recorded Sex Assigned at Not on file Legal Sex Female 7:55 PM EDT Gender Identity Not on file Sexual Orientation Not on file documented as of this encounter Miscellaneous Notes * Progress Notes - Sarahi Lima PA - 04/13/2025 12:15 PM EST Subjective Patient ID: Meeta Melendez is a 59 y.o. female. No chief complaint on file. HPI Meeta Melendez is a 59 y/o female who presents today for a new patient consultation regarding hematemesis and nausea. 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 The patient was referred by Yani Cee APRN. Per chart review, patient was noted to have a left sided d iaphragmatic abnormality with possible stomach concerns extruding into supradiaphragmatic area. Prior diagnostic work up CT A/P 01/12/2023: Focal opacity along the diaphragm with thickening of the adjacent left hemidiaphragm, more prominent than noted on prior CT exam. focal portion of the stomach extends superior to the hemidiaphragm. This may represent a localized inflammatory process of the stomach with associatedinflammatory changes adjacent hemidiaphragm and. Would recommend endoscopic correlation for furtherevaluation. Mild scarring of right kidney. Mild bladder wall thickening, likely inflammatory History of Present Illness The patient is a 58-year-old female who presents for evaluation of vomiting, blood, and nausea. She was referred by Yani Douglas APRN, due to episodes of vomiting blood and nausea that began 1 to 2 days before her ER visit. She has a history of coughing up small amounts of blood during allergy or cold episodes, but this instance was different. She describes a raw sensation in her neck, which feels thick and sore. There has been intermittent neck swelling for the past 5 to 6 years, previouslyattributed to arthritis. She has been checked for thyroid issues. Prior to the bleeding episode, she felt as though something needed to be expelled when she coughed. She has had her throat stretched at [facility], several years ago, which was painful and left her feeling uncomfortable in that area. She is unsure if the blood originated from her throat or stomach. A week before Thanksgiving, she visited the ER at [facility] where she vomited blood, phlegm, and a milky substance. Last night, she vomited again but without blood. Vomiting occurs once or twice a week, often triggeredby coughing or clearing her throat. She has had difficulty swallowing food a few times, particularly when her tonsils were swollen. She has lost some weight and experiences sudden vomiting without warning. She uses Zofran for nausea but is unsure if it helps with the vomiting. She experiences esophageal burning. She has noticed something larger than normal at the back of her tongue that interferes with eating. She has been experiencing more heartburn symptoms lately, including last night when she vomited. She used to have frequent heartburn and consumed a bottle of Tums weekly, but pantoprazole 20mg has been effective in managing it. She takes pantoprazole once daily. She has a lifelong history of diarrhea, which has worsened over the past 3 to 4 years. She has 3 to4 bowel movements in the morning and sometimes wakes up at 4 AM to defecate. She has not changed her eating habits. She has noticed a red tint to her stool after flushing, but is unsure if this is blood. Denies melena. She was treated for hep C with Mavyret and is currently clear. She is curious about the symptoms ofhep B and was advised to have her liver tested after taking Mavyret. She has had an EGD before and completed Cologuard almost 4 years ago, which was normal. She was informed of fluid behind her ears during a strep throat visit and still feels something is going on there. She frequently uses Advil and Tylenol for pain. She has a history of pancreatitis and chooses not to go to the ER during acute episodes. Her last severe episode was in 01/2025. She still has her gallbladder and has some sore spots in her intestinal area. She does not experience a lot of abdominal pain unless her pancreas is inflamed. SOCIAL HISTORY Alcohol: Drinks alcohol 3-4 times a week, primarily Sarah and bourbon. Tobacco: Smokes less than a pack a day. FAMILY HISTORY - Negative for GI cancers The following portions of the chart were reviewed this encounter and updated as appropriate: Tobacco Allergies Meds Problems Med Hx Surg Hx Fam Hx Review of Systems Constitutional: Negative for chills, fever and unexpected weight change. HENT: Positive for trouble swallowing. Gastrointestinal: Positive for abdominal pain, blood in stool, diarrhea, nausea and vomiting. Objective There were no vitals filed for this visit. Physical Exam Constitutional: Appearance: Normal appearance. HENT: Head: Normocephalic and atraumatic. Nose: Nose normal. Eyes: General: No scleral icterus. Extraocular Movements: Extraocular movements intact. Pulmonary: Effort: Pulmonary effort is normal. Neurological: Mental Status: She is alert and oriented to person, place, and time. Psychiatric: Mood and Affect: Mood normal. Behavior: Behavior normal. Thought Content: Thought content normal. Judgment: Judgment normal. Assessment/Plan Hematemesis with nausea (Primary) History of hepatitis C Generalized abdominal pain Dysphagia, unspecified type Odynophagia Unintentional weight loss History of pancreatitis Colon cancer screening Diarrhea, unspecified type -Patient was seen at [facility] ED in 03/2025, for N/V, and hematemesis. Patient reports swelling in her neck on and off for 5-6 years. She reports a throat thickness' with palpation. She reports history of coughing up blood as well. She reports history of remote EGD with dilation completedseveral years ago. Prior colonoscopy showed inadequate prep. She reports vomiting is occurring 1-2 times weekly. This is unrelated to PO intake, usually proceeded by cough. Sometimes this only contains phlegm. She reports mild intermittent dysphagia. Questions if throat discomfort is associated with fluid on her ears. She endorses nausea, but vomiting can occur without nausea. Denies increased epi sodes of vomiting prior to hematemesis. Symptoms can occur at night or in the morning. Zofran helpswith nausea. She endorses increased heartburn symptoms recently, she is taking pantoprazole 20mg daily which previously controlled GERD symptoms. She endorses chronic history of diarrhea as well. BM's are occurring 3-4x daily. Denied melena or hematochezia. Reports colonoscopy prep was previously completed. Reports recurrent episodes of pancreatitis, has not been hospitalized for this. Drinks frequently (bourbon/Sarah) and smokes less than 1 PPD. Denies illicit drug use. Still has gallbladder. Completed CT A/P at ED in 03/2025. Reports negative cologuard over 4 years ago. Symptoms have resulted in unintentional weight loss, abdominal pain is severe during episodes of pancreatitis, otherwiseno pain. Plan -Requested CT A/P, ED visit note, and recent lab work completed at [facility] in 03/2025. -Will complete bidirectional scopes to further evaluate symptoms. -Will complete stool studies consisting of fecal calprotectin, comp GI panel, O&P, C. Diff, andPFE to further evaluate loose stools. -Discussed suspicion for overflow diarrhea, given history of colonoscopy with poor prep. If stool studies negative, will consider initiation of Miralax daily. -Will fax labs orders consisting of CBC, CMP, Lipase, amylase, TSH, FT4, Strongyloides, TTG IGA, IGA, and acute hepatitis panel. -Will increase PPI therapy to pantoprazole 40 mg BID due to history of hematemesis. Notes regular alcohol and NSAID use. -Advised avoidance of NSAID's and alcohol intake. Orders - EGD; Future - Lipase; Future - Amylase, Plasma; Future - Pancreatic elastase, fecal; Future - Colonoscopy; Future - Thyroid Stimulating Hormone, Plasma; Future - T4, free; Future - Tissue Transglutaminase (tTG) Ab, IgA (SO); Future - IgA, Plasma; Future - Calprotectin, Fecal by Immunoassay; Future - Comprehensive GI Panel by PCR; Future - Ova and Parasite Exam, Fecal; Future - Clostridiodes (Clostridium) difficile PCR; Future - Pancreatic elastase, fecal; Future - Hepatitis panel, acute; Future - CBC and differential; Future - Comprehensive metabolic panel; Future Follow up after EGD/Colonoscopy Sarahi Lima PA-C A total of 48 minutes was spent on this patient encounter - educating patient, interpreting and discussing labs and imaging, impressions, prognosis, risks/benefits of current treatment options, risk factor reduction, instructions for management, and documentation. Care coordination provided included review and summary of medical records and additional diagnostic research, phone collaboration and consult with peers. Verbal consent was obtained to use ambient listening technology to assist in the documentation of the encounter: yes Telehealth Statement Patient Verification Patient identity has been confirmed using name and date of ? Yes Authorizations and Agreements/Telemedicine Consent sent and consent confirmed? Yes Patient Location: Home/Other Patient confirms they are physically located in [place]? Yes If the patient is not physically located in [place], the provider has confirmed with Legal thatthe provider is authorized to provide services in patient's stated location? N/A Provider Location: [facility] facility Audio and video or audio only? Audio and video Total visit time: 49 minutes documented in this encounter Plan of Treatment Upcoming Encounters Date Type Department Care Team (Late st Contact Info) Description 05/09/2025 3:[address] [facility] [address] [facility] [address] [place] [id number] 05/09/2025 4:20 PM EST Office Visit [facility] [address] [facility] [address] [place] [address] Kg Schmitt MD [address] [facility] [address] [place] [address] Scheduled Orders Name Type Priority Associated Diagnoses Orde r Schedule EGD Endoscopy Routine Hematemesis with nausea Dysphagia, unspecified type Unintentional weight loss Expected: 04/13/2025, Expires: 10/15/2026 Colonoscopy Endoscopy Routine Unintentional weight loss Colon cancer screening Diarrhea, unspecified type Expected: 04/13/2025, Expires: 10/15/2026 Hepatitis panel, acute Lab Routine History of hepatitis C Expected: 04/13/2025 (Approximate), Expires: 10/15/2026 CBC and differential Lab Routine Generalized abdominal pain Expected: 04/13/2025 (Approximate), Expires: 10/15/2026 Comprehensive metabolic panel Lab Routine Generalized abdominal pain Expected: 04/13/2025 (Approximate), Expires: 10/15/2026 Thyroid Stimulating Hormone, Plasma Lab Routine Diarrhea, unspecified type Expected: 04/13/2025, Expires: 10/12/2026 T4, free Lab Routine Diarrhea, unspecified type Expected: 04/13/2025 (Approximate), Expires: 10/15/2026 Tissue Transglutaminase (tTG) Ab, IgA (SO) Lab Routine Diarrhea, unspecified type Expected: 04/13/2025 (Approximate), Expires: 10/12/2026 IgA, Plasma Lab Routine Diarrhea, unspecified type Expected: 04/13/2025 (Approximate), Expires: 10/12/2026 Calprotectin, Fecal by Immunoassay Lab Routine Diarrhea, unspecified type Expected: 04/13/2025, Expires: 10/12/2026 Comprehensive GI Panel by PCR Microbiology Routine Diarrhea, unspecified type Expected: 04/13/2025 (Approximate), Expires: 10/12/2026 Ova and Parasite Exam, Fecal Microbiology Routine Diarrhea, unspecified type Expected: 04/13/2025 (Approximate), Expires: 04/13/2026 Clostridiodes (Clostridium) difficile PCR Microbiology Routine Diarrhea, unspecified type Expected: 04/13/2025 (Approximate), Expires: 10/12/2026 Pancreatic elastase, fecal Lab Routine History of pancreatitis Diarrhea, unspecified type Expected: 04/13/2025 (Approximate), Expires: 10/12/2026 Lipase Lab Routine Hematemesis with nausea History of pancreatitis Expected: 04/13/2025 (Approximate), Expires: 10/15/2026 Amylase, Plasma Lab Routine Hematemesis with nausea History of pancreatitis Expected: 04/13/2025 (Approximate), Expires: 10/15/2026 Strongyloides Antibody Lab Routine Diarrhea, unspecified type Expected: 04/13/2025 (Approximate), Expires: 10/12/2026 Scheduled Referrals Name Type Priority Associated Diagnoses Orde r Schedule Follow Up GI Outpatient Referral Routine Hematemesis with nausea Dysphagia, unspecified type Odynophagia Unintentional weight loss History of pancreatitis Colon cancer screening Diarrhea, unspecified type History of hepatitis C Generalized abdominal pain Expected: 08/12/2025 (Approximate), Expires: 05/14/2026 documented as of this encounter Visit Diagnoses Diagnosis Hematemesis with nausea- Primary Dysphagia, unspecified type Odynophagia Dysphagia, unspecified Unintentional weight loss Loss of weight History of pancreatitis Personal history of other diseases of digestive disease Colon cancer screening Special screening for malignant neoplasms, colon Diarrhea, unspecified type History of hepatitis C Personal history of other infectious and parasitic disease Generalized abdominal pain Abdominal pain, generalized documented in this encounter Additional Health Concerns Assessment Noted Time A fall risk assessment has been complete d for the patient 11/08/2023 9:35 AM EDT A Body Mass Index follow-up plan has been documented for the patient 04/13/2025 4:06 PM EST documented as of this encounter Care Teams Furnace Operator And Tender Relationship Specialty Start Date End Date Sebas Castle APRN [address] [place] [id number] PCP - General 11/08/23 documented as of this encounter
--- OUTSIDE RECORDS SUMMARY | 2025-04-17 11:04 | XMS_ITS | Clinical Summary ---
Author Organization [facility] Address [address] [place] [address] Care Team Providers Care Quality Improvement Manager Name Role Phone Caesar Maxwell MD Primary Care Provider Allergies Active Allergy Reactions Criticality Noted Date Comments Latex Rash,Unknown (See Comments) Low 01/11/20 Shellfish Allergy Anaphylaxis High 11/18/2009 Medications amLODIPine (NORVASC) 5 MG tablet 04/06/2022 Active atorvastatin (LIPITOR) 40 MG tablet 06/01/2022 Active Cholecalciferol (Vitamin D3) 1.25 MG (78687 UT) capsule 2022 Active diazePAM (VALIUM) 5 [...] VACCINE Completed 04/30/2020, 01/29/2020 Insurance Care Teams Quality Improvement Manager Relationship Specialty Start Date End Date Caesar Maxwell MD [address] [facility] [address] ATTN: [place] [address] PCP - General Emergency Medicine 05/20/22
--- OUTSIDE RECORDS SUMMARY | 2025-04-17 11:04 | XMS_ITS | Encounter Summary ---
Author Organization [facility] Address [address] [id number] Care Team Providers Care Engineering Group Manager Name Role Phone Corrine Sebas Erica JOHNSON Primary Care Provider [phone] Encounter Details Date Type Department Care Team (Late st Contact Info) Description 04/03/2025 Telephone [facility] [address], [address] [place] [phone] Rachna Peña [place] [address] Social History Tobacco Use Types Packs/Day Years [...] drink first t demetri in the morning (EYE-PASSENGER SERVICE MANAGER) to steady your nerves or to get rid of a hangover? 1 10/03/2023 CAGE Questionnaire Score 2 024 Comments Unknown Sex and Gender Information Value Date Recorded Sex Assigned at Not on file Legal Sex Female 7:55 PM EDT Gender Identity Not on file Sexual Orientation Not on file documented as of this encounter Miscellaneous Notes * Telephone Encounter - Sanna Bourne - 04/05/2025 1:58 PM EST Called pt & scheduled; appt on the waitlist * Telephone Encounter - Rachna Peña - 04/03/2025 4:20 PM EST Patient called She is calling to follow up on a referral that was faxed over on 03/28/25 She states it was sent to [phone] fax number CB: [phone] documented in this encounter Plan of Treatment Upcoming Encounters Date Type Department Care Team (Late st Contact Info) Description 05/09/2025 3:00 PM EST Appointment [facility] Vascular Lab [address] [place] [address] 05/09/2025 4:20 PM EST Office Visit [facility] [address] [place] [address] Kg Schmitt MD [address] [facility] [address] [place] [address] documented as of this encounter Visit Diagnoses Not on filedocumented in this encounter Additional Health Concerns Assessment Noted Time A fall risk assessment has been complete d for the patient 11/08/2023 9:35 AM EDT A Body Mass Index follow-up plan has been documented for the patient 04/06/2024 2:35 PM EST documented as of this encounter Care Teams Engineering Group Manager Relationship Specialty Start Date End Date Sebas Castle APRN [address] [place] [address] KENAN Raya [address] PCP - General 11/08/23 documented as of this encounter
--- OUTSIDE RECORDS SUMMARY | 2025-04-17 11:04 | XMS_ITS | Encounter Summary ---
Author Organization Healthcare Address [address] [place] [address] Care Team Providers Care Carpenter Name Role Phone Caesar Maxwell MD Primary Care Provider [phone] Sebas Castle APRN Primary Care Provider [phone] Encounter Details Date Type Department Care Team (Late st Contact Info) Description 09/23/2023 Orders Only External Location [address] [place] [address] Sebas Castle APRN [address] [place] [address] Social History Tobacco Use Types Packs/Day Years [...] Info) Description 05/09/2025 3:00 PM EST Appointment [facility] Vascular Lab [address] [place] [address] 05/09/2025 4:20 PM EST Office Visit [facility] Comprehensive [facility]ascular Clinic [address] [place] [address] Kg Schmitt MD [address] [place] [address] documented as of this encounter Procedures Procedure Name Priority Date/Time Associated Diagnosis Comments XR THORACIC OUTSIDE IMAGES 09/23/2023 10:50 AM EDT documented in this encounter Results * XR THORACIC OUTSIDE IMAGES (09/23/2023 10:50 AM EDT) Anatomical Region Laterality Modality Radiographic Renata ging 09/23/2023 10:5 0 AM EDT Sebas Castle APRN IMG XR PROCEDURES Final Res ult documented in this encounter Visit Diagnoses Not on filedocumented in this encounter Additional Health Concerns Assessment Noted Time A Body Mass Index follow-up plan has been documented for the patient 07/20/2022 10:19 AM EDT documented as of this encounter Care Teams Carpenter Relationship Specialty Start Date End Date Caesar Maxwell MD [address] [place] [address] PCP - General 09/13/20 11/07/23 Sebas Castle APRN [address] [place] [address] PCP - General 11/08/23 documented as of this encounter
--- OUTSIDE RECORDS SUMMARY | 2025-04-17 11:04 | XMS_ITS | Clinical Summary ---
Author Organization [facility] Address [address] [place] [address] Care Team Providers Care Java Oracle Developer Name Role Phone Corrine Sebas Erica JOHNSON Primary Care Provider Allergies Active Allergy Reactions Criticality Noted Date Comments Latex Rash,Unknown - Patie nt states they do not know rxn details Low 01/10/2010 Shellfish Allergy Anaphylaxis High 11/18/2009 Medications aspirin 81 MG EC tablet TAKE 1 TABLET DAILY. 4 Active fluticasone (Flonase) 50 MCG/ACT nasal spray 2 Active atorvastatin (Lipitor) 40 MG tablet 3 Active diazePAM (Valium) 5 MG tablet Take 1 tablet (5 mg) by mouth if needed. 3 Active rivaroxaban (Xarelto) 10 MG tablet .COMPLEX 3 Active metoprolol succinate XL (Toprol-XL) 25 MG 24 hr tablet .COMPLEX 4 Active amLODIPine (Norvasc) 2.5 MG tablet 4 Active Ventolin HFA 108 (90 Base) MCG/ACT inhaler 5 Active Azelastine HCl 137 MCG/SPRAY solution 5 Active cetirizine (ZyrTEC) 10 MG tablet 5 Active magnesium oxide (Mag-Ox) 400 (240 Mg) MG tablet 5 Active ondansetron (Zofran) 4 MG tablet as needed. 5 Active pantoprazole (Protonix) 40 MG EC tablet Take 1 tablet by mouth 2 times a day. Do not crush, chew, or split. 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 Resolved Problems Problem Noted Date Diagnosed Date Resolved Date Second hand smoke exposure 11/08/2023 0 01/21/2025 Encounters Date Type Department Care Team Description 04/16/2025 Telephone [facility] Medicine Specialties [address] [address] Ana Gomes RN Calling for office fax # (Calling for office fax ); calling for name of provider who prescribes Xaralto (Calling to see who is prescribing Xarelto ) 04/13/2025 12:15 PM EST Office Visit [facility] Medicine Specialties [address] [place] [address] Sarahi Lima PA Hematemesis with nausea (Primary Dx); Dysphagia, unspecified type; Odynophagia; Unintentional weight loss; History of pancreatitis; Colon cancer screening; Diarrhea, unspecified type; History of hepatitis C; Generalized abdominal pain 04/13/2025 Travel 04/03/2025 Telephone [facility] Medicine Specialties [address] [facility], [address] [place] [address] Rachna Peña from Last 3 Months Immunizations Immunization Administration Dates Next Due Influenza, [...] drink first t demetri in the morning (EYE-MANAGER EXPRESS) to steady your nerves or to get [...] Info) Description 05/09/2025 3:00 PM EST Appointment [facility] Vascular Lab [address] [facility] 5th Floor [address] [place] [address] 05/09/2025 4:20 PM EST Office Visit [place] [facility] [address] [place] [address] Kg Schmitt MD [address] [facility] [address] [place] [address] Health Maintenance Due Date Last Done Comments [facility]-Infant/Child/Adol SDOH Screenings 1965 [facility]- SDOH Screenings 1981 [facility]-Adult SDOH Screenings 1981 [facility]-Hepatitis A Vaccines (1 of 2 - Risk 2-dose series) 1982 CT Colonography 2008 FIT-DNA 2008 FIT 2008 FOBT 2008 Sigmoidoscopy 2008 Lung Cancer Screening Shared Decision Making 2013 [facility]-RSV Vaccine: 60+ Years or (1 - Risk 50-74 years 1-dose series) 2013 [facility]-Breast Cancer Screening 11/20/2018 11/20/2016 [facility]-Pap Smear 04/02/2020 04/02/2017, 08/2009, 10/24/2003, Additional history exists [facility]-Pneumococcal Vaccine: 50+ Years (2 of 2 - PCV) 02/20/2021 02/21/2020, 02/11/2015 [facility]-Cervical Cancer Screening 04/02/2022 [facility]-HPV/Cotest 04/02/2022 04/02/2017, 05/2016, 07/04/2009, Additional history exists [facility]-Depression Screening 07/21/2022 07/21/2021 [facility]-DTaP,Tdap,and Td Vaccines (2 - Td or Tdap) 08/12/2023 08/11/2013 [facility]-Lung Cancer Screening 11/07/20242023, 07/01/2020, 05/25/2018, Additional history exists [id number] Vaccine ( season) 2025 03/09/2023, 01/29/2022, 04/16/2021, Additional history exists [facility]-Influenza Vaccine (#1) 01/01/202503/09, 01/29/2022, 02/12/2021, Additional history exists Colonoscopy 03/16/2027 03/16/2017 [facility]-Colorectal Cancer Screening 03/16/2027 [facility]-Zoster Vaccines Completed 04/30/2020, [facility]-HIV Screening Completed 10/03/2023, , 09/21/2016 [facility]-Obesity Intervention Completed 025, 04/06/2024, 07/20/2022 HPV Vaccines (No Doses Required) Completed [facility]-HIB Vaccines Aged Out No longer e [...] I/II DIFFERENTIATION STAT 10/03/2023 11:47 AM EDT CYTO DATA CONVERSION Routine 04/02/2017 12:00 AM [...] Reactive Non Reactive 10/03/2023 12:38 PM EDT [facility] Comment:Screening for HIV 1 & 2 antibodies, and P24 antigen is NONREACTIVE. No confirmatory testing is required. Blood Venous blood specimen / Unknown Venipuncture / Unknown 10/03/2023 11:47 AM EDT 10/03/2023 11:57 AM EDT us Javan Mandujano MD LAB BLOOD ORDERABLES Final Res ult [facility] [address] [place] [address] * Cytology (04/02/2017 12:00 AM EST) 04/02/2017 04/06/2017 12: 12 PM EST Narrative SUNQUEST - 04/21/2017 3:18 PM EST [facility] MR #: [id number] [facility] ME[address]A [place] [place], [place] [address] 1965 (Age: 51) FW Collect Date: 04/02/2017 00:00 Receipt Date: 04/06/2017 12:12 Page 1 DEPARTMENT OF PATHOLOGY AND LABORATORY MEDICINE CYTOPATHOLOGY REPORT Email: [email or web address] ATTENDING MD/Practitioner: Dannielle Quintana Service: OBE Location: [facility] Reported: 04/21/2017 15:18 Collected: 04/02/2017 00:00 INTERPRETATION A. THIN PREP (CERVICAL/VAGINAL): NEGATIVE FOR INTRAEPITHELIAL LESION OR MALIGNANCY. SATISFACTORY FOR EVALUATION; ENDOCERVICAL/ TRANSFORMATION ZONE COMPONENT PRESENT. Slide scanned and imaged by [employer] ThinPrep Imaging System with manual review of all selected carlin. Please see the ASCCP website (www.asccp.org) for followup recommendations. Correlation with the results of HPV testing is also suggested (please call Microbiology at [phone] for results). Electronically Signed Out By JOSH [...] results is suggested (please call Microbiology at [phone] for results). CLINICAL INFORMATION: Menstrual History: Postmenopausal Date of Last Menstrual Period: unknown Other Clinical Conditions: HPV testing requested. SPECIMEN DESCRIPTION: A: THIN PREP (CERVICAL/VAGINAL) THIN PREP PROCESS CELLULAR ENHANCEMENT ICD: F: A; RT IMAGE 85608 SNOMED CODES: A; [id number] In cases where a pathologist has signed out the report, the service has been rendered in part by a resident. The signing pathologist has performed and is responsible for the reported pathologic evaluation. us Abbey S Barone OR NURSE MANAGER LAB PATHOLOGY ORDERABLES F inal Result SUNQUEST * COLONOSCOPY (03/16/2017) Anatomical Region Laterality Modality Endoscopy Narrative 03/16/2017 Ordered by an unspecified provider. us Historical Provider GI PROCEDURE ORDERABLES Joleen l Result * Mammography Breast Screening Tomosynthesis Bilateral (11/20/2016 12:00 PM EDT) Anatomical Region Laterality Modality Breast Bilateral Mammography Impressions 11/20/2016 5:00 PM EDT BI-RADS Assessment Category 2: Benign finding. RECOMMENDATION: Routine screening mammogram in 1 year. Page 1 of 2 Patient Name:Meeta Prescott : 1965 Age: 51 Gender: femaleDate of Service: 11/20/2016 eferring Phy:Riddhi MejiaAccount: [id number] COMMUNICATION: The results and recommendations will be [...] on Nov 20 2016 5:00P Transcribed by: [facility] Nov 20 2016 5:00P Dictated by: ELDER WEISS M.D. on Nov 20 2016 5:00P Patient Name:Meeta Prescott : 1965 Age: 51 Gender: femaleDate of Service: 11/20/2016 eferring Phy:Riddhi MejiaAccount: [id number] Riddhi Mejia , FINAL REPORT PROCEDURE: Tomosynthesis [...] on Nov 20 2016 5:00P Transcribed by: [facility] Nov 20 2016 5:00P Dictated by: ELDER WEISS M.D. on Nov 20 2016 5:00P Patient Name:Meeta Prescott : 1965 Age: 51 Gender: femaleDate of Service:11/20/2016 eferring Phy:Riddhi MejiaAccount: [id number] Riddhi Mejia , FINAL REPORT PROCEDURE: Tomosynthesis [...] 1965 Age: 51 Gender: femaleDate of Service:11/20/2016 [facility] Phy:Riddhi MejiaAccount: [id number] COMMUNICATION: The results and recommendations will be [...] to Health Maintenance Insurance MEDICAID Care Teams Java Oracle Developer Relationship Specialty Start Date End Date Sebas Castle APRN [address] [place] [id number] PCP - General 11/08/23
--- OUTSIDE RECORDS SUMMARY | 2025-04-17 11:04 | XMS_ITS | Encounter Summary ---
Author Organization [facility] Address [address] [place] [address] Care Team Providers Care Apartment Property Manager Name Role Phone Sebas Castle APRN Primary Care Provider [phone] Reason for Visit * Reason Onset Date Comments Calling for office fax # 04/16/2025 Calling for office fax calling for name of provider who prescribes Xaralto 04/16/2025 Calling to see who is prescr ibing Xarelto Encounter Details Date Type Department Care Team (Late st Contact Info) Description 04/16/2025 Telephone [facility] Medicine Specialties [address], [address] [place] [address] Ana Gomes, [facility] None Calling for office fax # (Calling for office fax ); calling for name of provider who prescribes Xaralto (Calling to see who is prescribing Xarelto ) Social History Tobacco Use Types Packs/Day Years [...] drink first t demetri in the 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 1 10/03/2023 CAGE Questionnaire Score 2 024 Comments Unknown Sex and Gender Information Value Date Recorded Sex Assigned at Not on file Legal Sex Female 7:55 PM EDT Gender Identity Not on file Sexual Orientation Not on file documented as of this encounter Miscellaneous Notes * Telephone Encounter - Ana Gomes RN - 04/16/2025 12:18 PM EST ----- Message from AAMIR Vasquez sent at 04/13/2025 1:36 PM EST ----- Patient needs EGD/Colonoscopy, on Xarelto, not sure who is prescribing this, could contact pharmacyso we know who to ask for clearance on holding medication. Thanks for your help! * Telephone Encounter - Ana Gomes RN - 04/16/2025 12:13 PM EST Called PCP office Sebas Castle APRN to get a fax# to send a fax requesting clearance to hold Xarelto for 2 days to get pt scheduled EGD/Colonoscopy. Our fax# was on our cover sheet. Office fax # [phone] * Telephone Encounter - Ana Gomes RN - 04/16/2025 12:11 PM EST ----- Message from AAMIR Vasquez sent at 04/13/2025 1:36 PM EST ----- Patient needs EGD/Colonoscopy, on Xarelto, not sure who is prescribing this, could contact pharmacyso we know who to ask for clearance on holding medication. Thanks for your help! documented in this encounter Plan of Treatment Upcoming Encounters Date Type Department Care Team (Late st Contact Info) Description 05/09/2025 3:00 PM EST Appointment [facility] Vascular Lab [address] [facility] 5th Floor [address] [place] [address] 05/09/2025 4:20 PM EST Office Visit [facility] [address] [facility] 5th Floor [address] [place] [address] Kg Schmitt MD [address] [facility] [address] [place] [address] documented as of this encounter Visit Diagnoses Not on filedocumented in this encounter Additional Health Concerns Assessment Noted Time A fall risk assessment has been complete d for the patient 11/08/2023 9:35 AM EDT A Body Mass Index follow-up plan has been documented for the patient 04/13/2025 4:06 PM EST documented as of this encounter Care Teams Apartment Property Manager Relationship Specialty Start Date End Date Sebas Castle APRN [address] [place] [address] PCP - General 11/08/23 documented as of this encounter
--- OUTSIDE RECORDS SUMMARY | 2025-04-17 11:04 | XMS_ITS | Encounter Summary ---
Author Organization Healthcare Address [address] [place] [address] Care Team Providers Care Pallet Sorter Name Role Phone Sebas Castle ELIZABETH Primary Care Provider [phone] Encounter Details Date Type Department Care Team (Latest Contact Info) Description 04/13/2025 Travel Social History Tobacco Use Types Packs/Day Years [...] drink first t demetri in the morning (EYE-GERONTOLOGICAL NURSE PRACTITIONER) to steady your nerves or to get [...] Info) Description 05/09/2025 3:00 PM EST Appointment [facility] Vascular Lab [address] [facility] 5th Floor [address], [address] [place] [address] 05/09/2025 4:20 PM EST Office Visit [facility] Comprehensive Vascular Clinic [address] [facility] 5th Floor [address], [address] [place] [address] Kg Schmitt MD [address] [facility] [address] [place] [address] documented as of this encounter Visit Diagnoses Not on filedocumented in this encounter Additional Health Concerns Assessment Noted Time A fall risk assessment has been complete d for the patient 11/08/2023 9:35 AM EDT A Body Mass Index follow-up plan has been documented for the patient 04/13/2025 4:06 PM EST documented as of this encounter Care Teams Pallet Sorter Relationship Specialty Start Date End Date Sebas Castle APRN [address] [place] [address] PCP - General 11/08/23 documented as of this encounter
[2025-04-17 11:29] LABS: Hematocrit 38.8 % (37.0-47.0); Hemoglobin 12.8 g/dL (12.2-16.2); Immature Granulocytes % 0.3 %; Mean Corpuscular HGB Conc 33.0 g/dL (31.8-35.4); Mean Corpuscular Hemoglobin 33.3 pg (27.0-31.2); Mean Corpuscular Volume 101.0 fl (81-99); Nucleated Red Blood Cells % 0 %; Platelet Count 292 K/mm3 (142-424); Red Blood Count 3.84 M/mm3 (4.20-5.40); Red Cell Distribution Width-SD 50.8 fL; White Blood Count 7.6 K/mm3 (4.8-10.8)
[2025-04-17 12:22] LABS: Alanine Aminotransferase 27 U/L (12-78); Albumin Level 4.2 g/dl (3.5-5.0); Albumin/Globulin Ratio 1.4 (1.1-1.8); Alkaline Phosphatase 89 U/L (38-126); Amylase 65 U/L (30-110); Anion Gap 11.8 mEq/L (5-15); Aspartate Amino Transferase 35 U/L (14-36); Bilirubin,Total 0.5 mg/dl (0.2-1.3); Blood Urea Nitrogen 11 mg/dl (7-17); Calcium 9.1 mg/dl (8.4-10.2); Carbon Dioxide 27 mmol/L (22.0-30.0); Chloride 106 mmol/L (98-107); Creatinine,Serum 0.80 mg/dl (0.52-1.04); Estimated Glomerular Filt Rate 73 ml/min (>60); GFR (African American) 88 ML/MIN (>60); Globulin 2.9 g/dL (1.3-3.2); Glucose 90 mg/dl (74-100); Lipase 182 U/L (23-300); Potassium 3.8 mmoL/L (3.5-5.1); Sodium 141 mmol/L (136-145); Total Protein,Serum 7.1 g/dl (6.3-8.2)
[2025-04-17 12:37] LABS: Free T4 (Free Thyroxine) 0.78 ng/dl (0.78-2.19)
[2025-04-17 12:54] LABS: Thyroid Stimulating Hormone 4.05 uIU/mL (0.465-4.68)
[2025-04-18 08:49] LABS: Immunoglobulin A, Qn 214 mg/dL (87-352)
== END 2025-04-17 23:59 | disposition home or self-care (01) ==
PROVIDERS: PCP Family Medicine
DX: K92.0 Hematemesis (principal); R19.7 Diarrhea, unspecified; R10.84 Generalized abdominal pain; Z87.19 Personal history of other diseases of the digestive system
CPT/HCPCS: 36415; 80053; 80074; 82150; 82784; 83690; 84439; 84443; 85025; 86364; 86682

== ENCOUNTER 2025-04-18 08:50 | Outpatient (CLI) | payer OTHER, SELFPAY ==
--- OUTSIDE RECORDS SUMMARY | 2025-04-13 12:15 | XMS_ITS | Encounter Summary ---
Author Organization Healthcare Address [address] [id number] Care Team Providers Care Day Spa Manager Name Role Phone Sebas Castle APRN Primary Care Provider [phone] Reason for Referral * Consultation (Routine) - Authorized Specialty Diagnoses / Procedures Referred By Contac t Referred To Contact Diagnoses Hematemesis with nausea Dysphagia, unspecified type Odynophagia Unintentional weight loss History of pancreatitis Colon cancer screening Diarrhea, unspecified type History of hepatitis C Generalized abdominal pain Sarahi Lima PA [address] [address] Phone: tel: fax: Referral ID Status Reason Start Date Expiration Date V isits Requested Visits Authorized [id number] Authorized 04/13/2025 10/13/2026 1 1 * Medications - Authorized Specialty Diagnoses / Procedures Referred By Contac t Referred To Contact Sarahi Lima PA [address] [address] Phone: tel: fax: Referral ID Status Reason Start Date Expiration Date V isits Requested Visits Authorized [id number] Authorized 04/13/2025 04/12/2026 1 1 * Genetic Testing (Routine) - Authorized Specialty Diagnoses / Procedures Referred By Contac t Referred To Contact Lab Diagnoses Diarrhea, unspecified type Procedures IgA, Plasma Sarahi Lima PA [address] [address] Phone: tel: fax: Referral ID Status Reason Start Date Expiration Date V isits Requested Visits Authorized [id number] Authorized 04/13/2025 10/13/2026 1 1 * Imaging (Routine) - Pending Review Specialty Diagnoses / Procedures Referred By Contac t Referred To Contact Gastroenterology Diagnoses Unintentional weight loss Colon cancer screening Diarrhea, unspecified type Procedures Colonoscopy Sarahi Lima PA [address] [address] Phone: tel: fax: Referral ID Status Reason Start Date Expiration Date Visits Requested Visits Authorized [id number] Pending Review Specialty Services Required 10/13/2026 1 1 * Imaging (Routine) - Pending Review Specialty Diagnoses / Procedures Referred By Sammie t Referred To Contact Gastroenterology Diagnoses Hematemesis with nausea Dysphagia, unspecified type Unintentional weight loss Procedures EGD Sarahi Lima PA [address] [address] Phone: tel: fax: Referral ID Status Reason Start Date Expiration Date Visits Requested Visits Authorized [id number] Pending Review Specialty Services Required 10/13/2026 1 1 Reason for Visit * Consultation (Urgent) - Closed Specialty Diagnoses / Procedures Referred By Contac t Referred To Contact Gastroenterology Diagnoses Hematemesis with nausea Yani Cee, CHASER APPRENTICE [address] [place] [address] Phone: tel: fax: Referral ID Status Reason Start Date Expiration Date V isits Requested Visits Authorized [id number] Closed Specialty Services Required 04/04/2025 10/04/2026 1 1 Encounter Details Date Type Department Care Team (Late st Contact Info) Description 04/13/2025 12:15 PM EST Office [facility] [address] [place] [address] Sarahi Lima PA [address] [place] [address] Hematemesis with nausea (Primary Dx); [...] drink first t demetri in the morning (EYE-GRIEF COUNSELLOR) to steady your nerves or to get rid of a hangover? 1 10/03/2023 CAGE Questionnaire Score 2 024 Comments Unknown Sex and Gender Information Value Date Recorded Sex Assigned at Not on file Legal Sex Female 7:55 PM EDT Gender Identity Not on file Sexual Orientation Not on file documented as of this encounter Miscellaneous Notes * Addendum Note - Tanja Merrill - 04/13/2025 12:15 PM ESTAddended by: TANJA MERRILL on: 04/18/2025 08:53 AM Modules accepted: Orders * Progress Notes - Sarahi Lima PA [...] She has had her throat stretched at [facility], several years ago, which was painful and left her feeling uncomfortable in that area. She is unsure if the blood originated from her throat or stomach. A week before , she visited the ER at [facility] where she vomited blood, phlegm, and [...] Diarrhea, unspecified type -Patient was seen at [facility] ED in 03/2025, for N/V, and [...] note, and recent lab work completed at [facility] in 03/2025. -Will complete bidirectional scopes to [...] confirms they are physically located in [place]? Yes If the patient is not physically located in [place], the provider has confirmed with [facility] thatthe provider is authorized to provide services in patient's stated location? N/A Provider Location: [facility] facility Audio and video or audio only? Audio and video Total visit time: 49 minutes documented in this encounter Plan of Treatment Upcoming Encounters Date Type Department Care Team (Late st Contact Info) Description 05/09/2025 3:00 PM EST Appointment [facility] Vascular Lab [address] [facility] 5th Floor [address] [place] [phone] 05/09/2025 4:20 PM EST Office Visit [facility] [address] [facility] 5th Floor [address], [address] [place] [address] Kg Schmitt MD [address] [facility] [address] [place] [address] Scheduled Orders Name Type Priority Associated Diagnoses Orde r Schedule EGD Endoscopy Routine Hematemesis with nausea Dysphagia, unspecified type Unintentional weight loss Expected: 04/13/2025, Expires: 10/15/2026 Colonoscopy Endoscopy Routine Unintentional weight loss Colon cancer screening Diarrhea, unspecified type Expected: 04/13/2025, Expires: 10/15/2026 Hepatitis panel, acute Lab Routine History of hepatitis C Expected: 04/13/2025 (Approximate), Expires: 10/15/2026 Thyroid Stimulating Hormone, Plasma Lab Routine Diarrhea, unspecified type Expected: 04/13/2025, Expires: 10/12/2026 Tissue Transglutaminase (tTG) Ab, IgA (SO) Lab [...] unspecified type Expected: 04/13/2025 (Approximate), Expires: 10/12/2026 Strongyloides Antibody Lab Routine Diarrhea, unspecified type [...] Expires: 05/14/2026 documented as of this encounter Results * T4, free (04/18/2025 8:54 AM EST) Blood Venous blood specimen / Unknown Sarahi RUTLEDGE LAB BLOOD ORDERABLES Final Resul t Performing Organization Address [facility] Co de Phone Number EXTERNAL LAB * Lipase (04/18/2025 8:54 AM EST) Blood Venous blood specimen / Unknown Sarahi RUTLEDGE LAB BLOOD ORDERABLES Final Resul t Performing Organization Address [facility] Co de Phone Number EXTERNAL LAB * Amylase, Plasma (04/18/2025 8:54 AM EST) Blood Venous blood specimen / Unknown Sarahi RUTLEDGE LAB BLOOD ORDERABLES Final Resul t Performing Organization Address [facility] Co de Phone Number EXTERNAL LAB * Comprehensive metabolic panel (04/18/2025 8:54 AM EST) Blood Venous blood specimen / Unknown Sarahi RUTLEDGE LAB BLOOD ORDERABLES Final Resul t Performing Organization Address City/[facility] Co de Phone Number EXTERNAL LAB * CBC and differential (04/18/2025 8:54 AM EST) Blood Venous blood specimen / Unknown Sarahi RUTLEDGE LAB BLOOD ORDERABLES Final Resul t Performing Organization Address [facility] Co de Phone Number EXTERNAL LAB documented in this encounter Visit Diagnoses Diagnosis Hematemesis with [...] documented as of this encounter Care Teams Day Spa Manager Relationship Specialty Start Date End Date Sebas Castle APRN [address] [place] [address] PCP - General 11/08/23 documented as of this encounter
[2025-04-18 09:02] LABS: Adenovirus F 40/41, stool Not Detected (NotDetected); Cyclospora Cayetanesis Not Detected (NotDetected); Plesimonas Shigalloides, PCR Not Detected (NotDetected); Salmonella, PCR Not Detected (NotDetected); Shiga-like toxin E coli Not Detected (NotDetected); Shigella Enterovasive E coli Not Detected (NotDetected); Vibrio, PCR Not Detected (NotDetected); Yersinia Entercolitica, PCR Not Detected (NotDetected)
--- NOTE | 2025-04-18 09:03 | XR_ITS ---
FINAL REPORT CLINICAL HISTORY: right wrist pain COMPARISON: None FINDINGS: RIGHT WRIST THREE VIEW FINDINGS: Three views show no evidence of an acute, displaced fracture or dislocation of the visualized bony architecture. The joint spaces appear normal. IMPRESSION: Unremarkable exam. Reviewed, Interpreted and Dictated by Georgette Metcalf MD Transcribed by Мария Storm Authenticated and [facility]
--- NOTE | 2025-04-18 09:03 | XR_ITS ---
FINAL REPORT CLINICAL HISTORY: left wrist pain COMPARISON: None FINDINGS: LEFT WRIST THREE VIEW FINDINGS: Three views show no evidence of an acute, displaced fracture or dislocation of the visualized bony architecture. The joint spaces appear normal. IMPRESSION: Unremarkable exam. Reviewed, Interpreted and Dictated by Georegtte Metcalf MD Transcribed by Мария Storm Authenticated and [facility]
--- OUTSIDE RECORDS SUMMARY | 2025-04-18 09:15 | XMS_ITS | Clinical Summary ---
Author Organization [facility] Address [address] [place] [address] Care Team Providers Care Assembler Erector Name Role Phone Corrine Sebas Erica JOHNSON Primary Care Provider [phone] Allergies Active Allergy Reactions Criticality Noted Date [...] Encounters Date Type Department Care Team Description 04/18/2025 Orders Only [facility] Medicine Specialties [address] [place] [address] Luann Pérez Generalized abdominal pain; Diarrhea, unspecified type; Hematemesis with nausea; History of pancreatitis 04/16/2025 Telephone [facility] Medicine [address] [address] Ana Gomes RN Calling for office fax # (Calling for office fax ); calling for name of provider who prescribes Xaralto (Calling to see who is prescribing Xarelto ) 04/13/2025 12:15 PM EST Office Visit [facility] Medicine [address] [address] Sarahi Lima PA Hematemesis with nausea (Primary Dx); Dysphagia, unspecified type; Odynophagia; Unintentional weight loss; History of pancreatitis; Colon cancer screening; Diarrhea, unspecified type; History of hepatitis C; Generalized abdominal pain 04/13/2025 Travel 04/03/[address] [address] Rachna Peña from Last 3 Months [...] drink first t demetri in the morning (EYE-PERSONNEL OFFICER) to steady your nerves or to get [...] Info) Description 05/09/2025 3:00 PM EST Appointment [facility] Vascular Lab [address] 5th Floor [address], [address] [place] [address] 05/09/2025 4:20 PM EST Office Visit [facility] Comprehensive Vascular Clinic [address] 5[address], [address] [place] [address] Kg Schmitt MD [address] [place] [address] Health Maintenance Due Date Last [...] Screening 11/07/20242023, 07/01/2020, 05/25/2018, Additional history exists [id number] Vaccine ( season) 2025 03/09/2023, 01/29/2022, 04/16/2021, [...] Procedure Name Priority Date/Time Associated Diagnosis Comments COMPREHENSIVE METABOLIC PANEL, PLASMA Routine 04/18/2025 8:54 AM EST Generalized abdominal pain AMYLASE, PLASMA Routine 04/18/2025 8:54 AM EST Hematemesis with nausea History of pancreatitis LIPASE, PLASMA Routine 04/18/2025 8:54 AM EST Hematemesis with nausea History of pancreatitis FREE T4, PLASMA Routine 04/18/2025 8:54 AM EST Diarrhea, unspecified type CBC WITH AUTO DIFFERENTIAL Routine 04/18/2025 8:54 AM EST Generalized abdominal pain CT CHEST WO IV CONTRAST Routine 11/08/19 8:45 AM EDT Lung nodule ED HIV 1/2 ANTIBODY/ANTIGEN SCREEN WITH REFLEX TO HIV I/II DIFFERENTIATION STAT 10/03/2023 11:47 AM EDT CYTO DATA CONVERSION Routine 04/02/2017 12:00 AM EST COLONOSCOPY 03/16/2017 MAMMOGRAPHY BREAST SCREENING TOMOSYNTHESIS BILATERAL Routine 11/20/2016 12:00 PM EDT from Last 3 Months or Most Recently Relevant to Health Maintenance Results * T4, free (04/18/2025 8:54 AM EST) Blood Venous blood specimen / Unknown us Sarahi RUTLEDGE LAB BLOOD ORDERABLES Final Resul t Performing Organization Address [facility] de Phone Number EXTERNAL LAB * Lipase (04/18/2025 8:54 AM EST) Blood Venous blood specimen / Unknown us Sarahi RUTLEDGE LAB BLOOD ORDERABLES Final Resul t Performing Organization Address [facility] de Phone Number EXTERNAL LAB * Amylase, Plasma (04/18/2025 8:54 AM EST) Blood Venous blood specimen / Unknown us Sarahi RUTLEDGE LAB BLOOD ORDERABLES Final Resul t Performing Organization Address [facility] de Phone Number EXTERNAL LAB * Comprehensive metabolic panel (04/18/2025 8:54 AM EST) Blood Venous blood specimen / Unknown us Sarahi RUTLEDGE LAB BLOOD ORDERABLES Final Resul t Performing Organization Address [facility] Co de Phone Number EXTERNAL LAB * CBC and differential (04/18/2025 8:54 AM EST) Blood Venous blood specimen / Unknown us Sarahi RUTLEDGE LAB BLOOD ORDERABLES Final Resul t Performing Organization Address [facility] Co de Phone Number EXTERNAL LAB * CT Chest wo IV Contrast (11/08/2023 [...] lytic or sclerotic lesion. Procedure Note Ian Araan MD - 11/08/2023 CLINICAL INDICATION: Lung nodule, [...] signing this report, I, the attending physician, attmark anthonythat I have personally reviewed the images/data for [...] Reactive Non Reactive 10/03/2023 12:38 PM EDT [facility] Comment:Screening for HIV 1 & 2 antibodies, and P24 antigen is NONREACTIVE. No confirmatory testing is required. Blood Venous blood specimen / Unknown Venipuncture / Unknown 10/03/2023 11:47 AM EDT 10/03/2023 11:57 AM EDT Javan Mandujano MD LAB BLOOD ORDERABLES Final Res ult [facility] [address] [place] [address] * Cytology (04/02/2017 12:00 AM EST) 04/02/2017 04/06/2017 12: 12 PM EST Narrative SUNQUEST - 04/21/2017 3:18 PM EST [facility] MR #: [id number] [facility] MEET[address] [place], [place] [address] 1965 (Age: 51) FW Collect Date: 04/02/2017 00:00 Receipt Date: 04/06/2017 12:12 Page 1 DEPARTMENT OF PATHOLOGY AND LABORATORY MEDICINE CYTOPATHOLOGY REPORT Email: [phone] ATTENDING MD/Practitioner: Dannielle Quintana Service: OBE Location: [facility] Reported: 04/21/2017 15:18 Collected: 04/02/2017 00:00 INTERPRETATION A. THIN PREP (CERVICAL/VAGINAL): NEGATIVE FOR INTRAEPITHELIAL LESION OR MALIGNANCY. SATISFACTORY FOR EVALUATION; ENDOCERVICAL/ TRANSFORMATION ZONE COMPONENT PRESENT. Slide scanned and imaged by Panl ThinPrep Imaging System with manual review of all selected carlin. Please see the ASCCP website (www.asccp.org) for followup recommendations. Correlation with the results of HPV testing is also suggested (please call Microbiology at [phone] for results). Electronically Signed Out By JOSH [...] results is suggested (please call Microbiology at [phone] for results). CLINICAL INFORMATION: Menstrual History: Postmenopausal Date of Last Menstrual Period: unknown Other Clinical Conditions: HPV testing requested. SPECIMEN DESCRIPTION: A: THIN PREP (CERVICAL/VAGINAL) THIN PREP PROCESS CELLULAR ENHANCEMENT ICD: F: A; RT IMAGE 44168 SNOMED CODES: A; L9G018 [id number] In cases where a pathologist has signed out the report, the service has been rendered in part by a resident. The signing pathologist has performed and is responsible for the reported pathologic evaluation. us Abbey Barone LEATHER DRESSER LAB PATHOLOGY ORDERABLES F inal Result SUNQUEST [...] femaleDate of Service: 11/20/2016 eferring Phy:Riddhi MejiaAccount: [id number] COMMUNICATION: The results and recommendations will be [...] on Nov 20 2016 5:00P Transcribed by: [facility] Nov 20 2016 5:00P Dictated by: ELDER WEISS M.D. on Nov 20 2016 5:00P Patient Name:Meeta Prescott : 1965 Age: 51 Gender: femaleDate of Service: 11/20/2016 eferring Phy:Riddhi MejiaAccount: [id number] Riddhi Mejia , FINAL REPORT PROCEDURE: Tomosynthesis [...] on Nov 20 2016 5:00P Transcribed by: [facility] Nov 20 2016 5:00P Dictated by: ELDER WEISS M.D. on Nov 20 2016 5:00P Patient Name:Meeta Prescott : 1965 Age: 51 Gender: femaleDate of Service:11/20/2016 [facility] Phy:Riddhicasa MejiaAccount: [id number] Riddhi Mejia , FINAL REPORT PROCEDURE: Tomosynthesis [...] 1965 Age: 51 Gender: femaleDate of Service:11/20/2016 john Phy:Riddhi MejiaAccount: [id number] COMMUNICATION: The results and recommendations will be [...] to Health Maintenance Insurance MEDICAID Care Teams Assembler Erector Relationship Specialty Start Date End Date Sebas Castle APRN [address] [place] [id number] PCP - General 11/08/23
--- OUTSIDE RECORDS SUMMARY | 2025-04-18 09:15 | XMS_ITS | Encounter Summary ---
Author Organization [facility] Address [address] [id number] Care Team Providers Care Commissary Officer Name Role Phone Corrine Sebas Erica JOHNSON Primary Care Provider [phone] Encounter Details Date Type Department Care Team (Late st Contact Info) Description 04/03/2025 [facility]phone [facility] Medicine Specialties [address]nd [place] [address] [place]na [place] [place] [address] Social History Tobacco Use Types Packs/Day Years [...] drink first t demetri in the morning (EYE-CRIMINAL JUSTICE PROFESSOR) to steady your nerves or to get [...] 03/28/25 She states it was sent to [phone] fax number CB: [phone] documented in this encounter Plan of Treatment Upcoming Encounters Date Type Department Care Team (Late st Contact Info) Description 05/09/2025 3:00 PM EST Appointment [facility] Vascular Lab [address] [place] [address] 05/09/2025 4:20 PM EST Office Visit [facility] Comprehensive Vascular Clinic [address] [place] [address] Kg Schmitt MD [address] [facility] [address] [place] [address] documented as of this encounter Visit Diagnoses Not on filedocumented in this encounter Additional Health Concerns Assessment Noted Time A fall risk assessment has been complete d for the patient 11/08/2023 9:35 AM EDT A Body Mass Index follow-up plan has been documented for the patient 04/06/2024 2:35 PM EST documented as of this encounter Care Teams Commissary Officer Relationship Specialty Start Date End Date Sebas Castle APRN [address] [place] [address] [place] Raya [address] PCP - General 11/08/23 documented as of this encounter
--- OUTSIDE RECORDS SUMMARY | 2025-04-18 09:16 | XMS_ITS | Encounter Summary ---
Author Organization Healthcare Address [address] [place] [address] Care Team Providers Care Disability Rater Name Role Phone Caesar Maxwell MD Primary Care Provider [phone] Sebas Castle APRN Primary Care Provider [phone] Encounter Details Date Type Department Care Team (Late st Contact Info) Description 09/23/2023 Orders Only External Location [address] [place] [address] Sebas Castle APRN [address] [place] [address] Social History Tobacco Use Types Packs/Day Years [...] Info) Description 05/09/2025 3:00 PM EST Appointment [facility] Vascular Lab [address] [place] [address] 05/09/2025 4:20 PM EST Office Visit [facility] Comprehensive Vascular Clinic [address] [place] [address] Kg Schmitt MD [address] [place] [address] documented as of this encounter [...] documented as of this encounter Care Teams Disability Rater Relationship Specialty Start Date End Date Caesar Maxwell MD [address] [place] [address] PCP - General 09/13/20 11/07/23 Sebas Castle APRN [address] [place] [address] PCP - General 11/08/23 documented as of this encounter
--- OUTSIDE RECORDS SUMMARY | 2025-04-18 09:16 | XMS_ITS | Patient Health Record ---
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) 10/03/19 14 Active confirmed Audie-Bin Problem Generalized anxiety disorder (75286546) Generalized anxiety disorder (300.02) 10/03/19 14 Active confirmed Audie-Bin Problem Peripheral vascular disease (033717988) Unspecified peripheral vascular disease (443.9) 10/03/19 14 Active confirmed Audie-Bin Problem Essential hypertension (75631640) Unspecified essential hypertension (401.9) 10/03/19 14 Active confirmed Audie-Bin Problem Chronic pancreatitis (126880446) Chronic pancreatitis (577.1) 10/03/19 14 Active confirmed Audie-Bin Problem Diarrhea (89424241) Diarrhea (787.91) 03/12/20 14 Active confirmed Audie-Bin Problem Hematuria (91929458) Hematuria, unspecified (R31.9) 04/27/20 14 Active confirmed Audie-Bin Plan Of Treatment No Information Insurance Providers Payer Name Payer Address Payer Phone Subscriber Number Group Number Insured Name Patient Relationship to Insured Coverage Start Date Coverage End Date [facility] [address] [place] [phone] [id number] Meeta Melendez Self - patient is the insured Medical (General) History Surgical History Surgery Date(Month/Year) ERCP/EGD for pancreatitis evaluation left brachial arterial stent
--- OUTSIDE RECORDS SUMMARY | 2025-04-18 09:16 | XMS_ITS | Encounter Summary ---
Author Organization Healthcare Address [address] [place] [address] Care Team Providers Care Graduate School Dean Name Role Phone Sebas Castle ELIZABETH Primary Care Provider [phone] Encounter Details Date Type Department Care Team [...] drink first t demetri in the morning (EYE-CARBON BRUSHER ASSEMBLER) to steady your nerves or to get [...] Info) Description 05/09/2025 3:00 PM EST Appointment [facility] Vascular Lab [address] [facility] 5th Floor [address] [place] [address] 05/09/2025 4:20 PM EST Office Visit [facility] Comprehensive Vascular Clinic [address] [facility] 5th Floor [address] [place] [address] Kg Schmitt MD [address] [facility] [address] [place] [address] documented as of this encounter Visit Diagnoses Not on filedocumented in this encounter Additional Health Concerns Assessment Noted Time A fall risk assessment has been complete d for the patient 11/08/2023 9:35 AM EDT A Body Mass Index follow-up plan has been documented for the patient 04/13/2025 4:06 PM EST documented as of this encounter Care Teams Graduate School Dean Relationship Specialty Start Date End Date Sebas Castle APRN [address] [place] [address] PCP - General 11/08/23 documented as of this encounter
--- OUTSIDE RECORDS SUMMARY | 2025-04-18 09:16 | XMS_ITS | Clinical Summary ---
Author Organization [facility] Address [address] [place] [address] Care Team Providers Care Real Estate Representative Name Role Phone Caesar Maxwell MD Primary Care Provider Allergies Active Allergy Reactions Criticality Noted Date Comments Latex Rash,Unknown (See Comments) Low 01/11/20 Shellfish Allergy Anaphylaxis High 11/18/2009 Medications amLODIPine (NORVASC) 5 MG tablet 04/06/2022 Active atorvastatin (LIPITOR) 40 MG tablet 06/01/2022 Active Cholecalciferol (Vitamin D3) 1.25 MG (87740 UT) capsule 2022 Active diazePAM (VALIUM) 5 [...] VACCINE Completed 04/30/2020, 01/29/2020 Insurance Care Teams Real Estate Representative Relationship Specialty Start Date End Date Caesar Maxwell MD [address] [facility] [address] ATTN: [place] [address] PCP - General Emergency Medicine 05/20/22
--- OUTSIDE RECORDS SUMMARY | 2025-04-18 09:16 | XMS_ITS | Encounter Summary ---
Author Organization [facility] Address [address] [place] [address] Care Team Providers Care Logistics Engineering Manager Name Role Phone Sebas Castle APRN Primary Care Provider [phone] Reason for Visit * Reason Onset Date Comments Calling for office fax # 04/16/2025 Calling for office fax calling for name of provider who prescribes Xaralto 04/16/2025 Calling to see who is prescr ibing Xarelto Encounter Details Date Type Department Care Team (Late st Contact Info) Description 04/16/2025 Telephone [facility] Medicine Specialties [address] [place] [address] Ana Gomes, MAXIMILIANO MEDICINE SPECIALTIES [...] drink first t demetri in the morning (EYE-CATERER HELPER) to steady your nerves or to get [...] on our cover sheet. Office fax # [phone] * Telephone Encounter - Ana Gomes RN [...] Info) Description 05/09/2025 3:00 PM EST Appointment [facility] Vascular Lab [address] [facility] 5th Floor [address] [place] [address] 05/09/2025 4:20 PM EST Office Visit [facility] Comprehensive Vascular Clinic [address] [facility] 5th Floor [address] [place] [address] Kg Schmitt MD [address] [facility] [address] [place] [address] documented as of this encounter Visit Diagnoses Not on filedocumented in this encounter Additional Health Concerns Assessment Noted Time A fall risk assessment has been complete d for the patient 11/08/2023 9:35 AM EDT A Body Mass Index follow-up plan has been documented for the patient 04/13/2025 4:06 PM EST documented as of this encounter Care Teams Logistics Engineering Manager Relationship Specialty Start Date End Date Sebas Castle APRN [address] [place] [address] PCP - General 11/08/23 documented as of this encounter
--- OUTSIDE RECORDS SUMMARY | 2025-04-18 09:16 | XMS_ITS | Encounter Summary ---
Author Organization [facility] Address [address] [place] [address] Care Team Providers Care Meteorological Engineer Name Role Phone Corrine Sebas Erica JOHNSON Primary Care Provider [phone] Encounter Details Date Type Department Care Team (Late st Contact Info) Description 04/18/2025 Orders Only [facility] Medicine Specialties [address] [place] [address] Luann [place] [place] [address] Generalized abdominal pain; Diarrhea, unspecified type; Hematemesis with nausea; History of pancreatitis Social History Tobacco Use Types Packs/Day Years [...] drink first t demetri in the morning (EYE-SUTURE WINDER HAND) to steady your nerves or to get [...] Info) Description 05/09/2025 3:00 PM EST Appointment [facility] Vascular Lab [address] [facility] [address] [place] [id number] 05/09/2025 4:20 PM EST Office Visit [facility] Comprehensive Vascular Clinic [address] [facility] [address] [place] [phone] Kg Schmitt MD [address] [facility] [address] [place] [address] documented as of this encounter Procedures Procedure Name Priority Date/Time Associated Diagnosis Comments FREE T4, PLASMA Routine 04/18/2025 8:54 AM EST Diarrhea, unspecified type LIPASE, PLASMA Routine 04/18/2025 8:54 AM EST Hematemesis with nausea History of pancreatitis AMYLASE, PLASMA Routine 04/18/2025 8:54 AM EST Hematemesis with nausea History of pancreatitis COMPREHENSIVE METABOLIC PANEL, PLASMA Routine 04/18/2025 8:54 AM EST Generalized abdominal pain CBC WITH AUTO DIFFERENTIAL Routine 04/18/2025 8:54 AM EST Generalized abdominal pain documented in this encounter Results * Comprehensive metabolic panel (04/18/2025 8:54 AM EST) Blood Venous blood specimen / Unknown [facility] BLOOD ORDERABLES Final Resul t EXTERNAL LAB * Amylase, Plasma (04/18/2025 8:54 AM EST) Blood Venous blood specimen / Unknown [facility] BLOOD ORDERABLES Final Resul t Performing Organization Address [facility] Co de Phone Number EXTERNAL LAB * Lipase (04/18/2025 8:54 AM EST) Blood Venous blood specimen / Unknown us [facility] BLOOD ORDERABLES Final Resul t Performing Organization Address [facility] de Phone Number EXTERNAL LAB * T4, free (04/18/2025 8:54 AM EST) Blood Venous blood specimen / Unknown [facility] BLOOD ORDERABLES Final Resul t Performing Organization Address [facility] de Phone Number EXTERNAL LAB * CBC and differential (04/18/2025 8:54 AM EST) Blood Venous blood specimen / Unknown [facility] BLOOD ORDERABLES Final Resul t Performing Organization Address [facility] de Phone Number EXTERNAL LAB documented in this encounter Visit Diagnoses Diagnosis Generalized abdominal pain Abdominal pain, generalized Diarrhea, unspecified type Hematemesis with nausea History of pancreatitis Personal history of other diseases of digestive disease documented in this encounter Additional Health Concerns Assessment Noted Time A fall risk assessment has been complete d for the patient 11/08/2023 9:35 AM EDT A Body Mass Index follow-up plan has been documented for the patient 04/13/2025 4:06 PM EST documented as of this encounter Care Teams Meteorological Engineer Relationship Specialty Start Date End Date Sebas Castle APRN [address] [place] [address] PCP - General 11/08/23 documented as of this encounter
[2025-04-18 19:31] LABS: Clostridium Difficile A/B, PCR Detected (NotDetected)
[2025-04-23 08:10] LABS: Calprotectin, Fecal 26 ug/g (0-120)
== END 2025-04-18 23:59 | disposition home or self-care (01) ==
LOC: LAB 08:51
PROVIDERS: PCP Family Medicine
DX: R19.7 Diarrhea, unspecified (principal); Z87.19 Personal history of other diseases of the digestive system; M25.532 Pain in left wrist; M25.531 Pain in right wrist
CPT/HCPCS: 73110; 82653; 83993; 87177; 87507